=== PATIENT | female | born 1940 | race Caucasian/White ===

== ENCOUNTER 2016-10-05 15:33 | Outpatient (CLI) | payer MEDICARE, OTHER ==
[~2016-10-05 15:33] MED LIST: AMLO1TAB59 PO; CHOL400T28 PO; FLAX100031 PO; HYDR-552 PO; INSU3INS6 SQ; INSU3INS8 SQ; MULT-70 PO; SITA50TA PO
== END 2016-10-05 23:59 | disposition home or self-care (01) ==
LOC: WOU 15:33
PROVIDERS: ATTEND Podiatrist Foot & Ankle Surgery
DX: E11.621 Type 2 diabetes mellitus with foot ulcer (principal); L97.521 Non-pressure chronic ulcer of other part of left foot limited to breakdown of skin; B35.1 Tinea unguium; E11.42 Type 2 diabetes mellitus with diabetic polyneuropathy; R60.0 Localized edema; M20.12 Hallux valgus (acquired), left foot; M20.32 Hallux varus (acquired), left foot; M20.42 Other hammer toe(s) (acquired), left foot
CPT/HCPCS: 11042; 11721

== ENCOUNTER 2019-03-13 10:40 | Outpatient (CLI) | payer MEDICARE, OTHER ==
[~2019-03-13 10:40] MED LIST changes: +AMLO1TAB33 PO; -AMLO1TAB59 PO; +HYDR-4384 PO; -HYDR-552 PO; +MULT-594 PO; -MULT-70 PO
== END 2019-03-13 23:59 | disposition home health service (06) ==
LOC: WOU 10:40
PROVIDERS: ATTEND Podiatrist Foot & Ankle Surgery
DX: I87.2 Venous insufficiency (chronic) (peripheral) (principal); L97.822 Non-pressure chronic ulcer of other part of left lower leg with fat layer exposed; L97.812 Non-pressure chronic ulcer of other part of right lower leg with fat layer exposed; L97.828 Non-pressure chronic ulcer of other part of left lower leg with other specified severity; E11.622 Type 2 diabetes mellitus with other skin ulcer; B35.1 Tinea unguium; L84 Corns and callosities; R60.0 Localized edema; Z79.84 Long term (current) use of oral hypoglycemic drugs
CPT/HCPCS: 11042; 82962-TC

== ENCOUNTER 2019-03-20 10:20 | Outpatient (CLI) | payer MEDICARE, OTHER | END 2019-03-20 23:59 | disposition home health service (06) | LOC: WOU 10:20 | PROVIDERS: ATTEND Podiatrist Foot & Ankle Surgery | DX: I87.2 Venous insufficiency (chronic) (peripheral) (principal); L97.822 Non-pressure chronic ulcer of other part of left lower leg with fat layer exposed; L97.812 Non-pressure chronic ulcer of other part of right lower leg with fat layer exposed; L97.828 Non-pressure chronic ulcer of other part of left lower leg with other specified severity; E11.40 Type 2 diabetes mellitus with diabetic neuropathy, unspecified; E11.319 Type 2 diabetes mellitus with unspecified diabetic retinopathy without macular edema; Z79.84 Long term (current) use of oral hypoglycemic drugs; B35.1 Tinea unguium; L84 Corns and callosities; I11.0 Hypertensive heart disease with heart failure; I50.9 Heart failure, unspecified | CPT/HCPCS: 11042; G0463 ==

== ENCOUNTER 2019-03-28 13:14 | Outpatient (CLI) | payer MEDICARE, OTHER | END 2019-03-28 23:59 | disposition home or self-care (01) | LOC: WOU 13:14 | PROVIDERS: ATTEND Podiatrist Foot & Ankle Surgery | DX: Z09 Encounter for follow-up examination after completed treatment for conditions other than malignant neoplasm (principal); Z86.31 Personal history of diabetic foot ulcer; E11.9 Type 2 diabetes mellitus without complications; E11.40 Type 2 diabetes mellitus with diabetic neuropathy, unspecified; I87.2 Venous insufficiency (chronic) (peripheral); R60.0 Localized edema; Z79.84 Long term (current) use of oral hypoglycemic drugs; L84 Corns and callosities; M20.42 Other hammer toe(s) (acquired), left foot; M20.41 Other hammer toe(s) (acquired), right foot | CPT/HCPCS: G0463 ==

== ENCOUNTER 2019-04-24 10:35 | Outpatient (CLI) | payer MEDICARE, OTHER | END 2019-04-24 23:59 | disposition home health service (06) | LOC: WOU 10:35 | PROVIDERS: ATTEND Podiatrist Foot & Ankle Surgery | DX: L97.821 Non-pressure chronic ulcer of other part of left lower leg limited to breakdown of skin (principal); I89.0 Lymphedema, not elsewhere classified; E11.42 Type 2 diabetes mellitus with diabetic polyneuropathy; Z79.84 Long term (current) use of oral hypoglycemic drugs; M20.42 Other hammer toe(s) (acquired), left foot; M20.41 Other hammer toe(s) (acquired), right foot; L84 Corns and callosities; B35.1 Tinea unguium | CPT/HCPCS: G0463 ==

== ENCOUNTER → 2019-04-24 | Outpatient (CLI) | payer MEDICARE, OTHER | END | disposition home or self-care (01) | LOC: MSC 11:30 | PROVIDERS: ATTEND Anesthesiology | DX: G89.4 Chronic pain syndrome (principal); M54.9 Dorsalgia, unspecified; M79.606 Pain in leg, unspecified; L98.499 Non-pressure chronic ulcer of skin of other sites with unspecified severity; I11.0 Hypertensive heart disease with heart failure; I50.9 Heart failure, unspecified; E11.9 Type 2 diabetes mellitus without complications; Z79.4 Long term (current) use of insulin; C85.90 Non-Hodgkin lymphoma, unspecified, unspecified site; Z79.891 Long term (current) use of opiate analgesic ==

== ENCOUNTER 2019-05-01 10:00 | Outpatient (CLI) | payer MEDICARE, OTHER | END 2019-05-01 23:59 | disposition home health service (06) | LOC: WOU 10:00 | PROVIDERS: ATTEND Podiatrist Foot & Ankle Surgery | DX: L97.822 Non-pressure chronic ulcer of other part of left lower leg with fat layer exposed (principal); L03.90 Cellulitis, unspecified; E11.42 Type 2 diabetes mellitus with diabetic polyneuropathy; R60.0 Localized edema; Z79.4 Long term (current) use of insulin; B35.3 Tinea pedis | CPT/HCPCS: 11042 ==

== ENCOUNTER 2019-05-03 11:47 | Outpatient (CLI) | payer MEDICARE, MEDICAID ==
[2019-05-03 13:15] LABS: BASOPHILS % (AUTO) 0.1 % (0.0-2.0); EOSINOPHILS % (AUTO) 2.9 % (0.0-6.0); HEMATOCRIT 34 % (33-45); HEMOGLOBIN 11.4 g/dL (11.5-14.8); LYMPHOCYTES # (AUTO) 0.6 /CMM (0.8-4.8); LYMPHOCYTES % (AUTO) 10.6 % (20.0-44.0); MEAN CORPUSCULAR HGB CONC 34 g/dl (31.0-36.0); MEAN CORPUSCULAR VOLUME 87 fL (82-100); MONOCYTES # (AUTO) 0.3 /CMM (0.1-1.30); MONOCYTES % (AUTO) 5.7 % (2.0-12.0); NEUTROPHILS # (AUTO) 4.3 /CMM (1.8-8.9); NEUTROPHILS % (AUTO) 80.7 % (43.0-81.0); PLATELET COUNT (AUTO) 293 /CMM (150-450); RED BLOOD CELL COUNT(AUTO) 3.85 MIL/uL (4.0-5.2); WHITE BLOOD COUNT (AUTO) 5.3 K/uL (4.3-11.0)
== END 2019-05-03 23:59 | disposition home or self-care (01) ==
LOC: LAB 11:47
PROVIDERS: ATTEND Podiatrist Foot & Ankle Surgery
DX: L03.116 Cellulitis of left lower limb (principal); I10 Essential (primary) hypertension; E11.9 Type 2 diabetes mellitus without complications; I25.10 Atherosclerotic heart disease of native coronary artery without angina pectoris; M19.90 Unspecified osteoarthritis, unspecified site
CPT/HCPCS: 36415; 82962-TC; 85025-TC; 85652-TC; 86140-TC

== ENCOUNTER 2019-05-11 10:10 | Outpatient (CLI) | payer MEDICARE, MEDICAID | END 2019-05-11 23:59 | disposition home health service (06) | LOC: WOU 10:10 | PROVIDERS: ATTEND Podiatrist Foot & Ankle Surgery | DX: L97.822 Non-pressure chronic ulcer of other part of left lower leg with fat layer exposed (principal); B35.1 Tinea unguium; M20.40 Other hammer toe(s) (acquired), unspecified foot; L03.116 Cellulitis of left lower limb; I89.0 Lymphedema, not elsewhere classified; G62.9 Polyneuropathy, unspecified | CPT/HCPCS: 11042 ==

== ENCOUNTER 2019-05-15 10:15 | Outpatient (CLI) | payer MEDICARE, MEDICAID | END 2019-05-15 23:59 | disposition home or self-care (01) | LOC: WOU 10:15 | PROVIDERS: ATTEND Podiatrist Foot & Ankle Surgery | DX: L97.822 Non-pressure chronic ulcer of other part of left lower leg with fat layer exposed (principal); E11.42 Type 2 diabetes mellitus with diabetic polyneuropathy; Z79.84 Long term (current) use of oral hypoglycemic drugs; B35.1 Tinea unguium; M20.12 Hallux valgus (acquired), left foot; M20.11 Hallux valgus (acquired), right foot; M20.42 Other hammer toe(s) (acquired), left foot; M20.41 Other hammer toe(s) (acquired), right foot; Z79.899 Other long term (current) drug therapy | CPT/HCPCS: 82962-TC; G0463 ==

== ENCOUNTER → 2019-05-15 | Outpatient (CLI) | payer MEDICARE, MEDICAID | END | disposition home or self-care (01) | LOC: MSC 11:10 | PROVIDERS: ATTEND Anesthesiology | DX: G89.4 Chronic pain syndrome (principal); L98.499 Non-pressure chronic ulcer of skin of other sites with unspecified severity; I11.0 Hypertensive heart disease with heart failure; I50.9 Heart failure, unspecified; E11.9 Type 2 diabetes mellitus without complications; Z79.4 Long term (current) use of insulin; C85.90 Non-Hodgkin lymphoma, unspecified, unspecified site; Z79.899 Other long term (current) drug therapy ==

== ENCOUNTER → 2019-05-22 | Outpatient (CLI) | payer MEDICARE, MEDICAID | END | disposition home or self-care (01) | LOC: WOU 10:15 | PROVIDERS: ATTEND Podiatrist Foot & Ankle Surgery | DX: L97.828 Non-pressure chronic ulcer of other part of left lower leg with other specified severity (principal); S99.911A Unspecified injury of right ankle, initial encounter; W54.8XXA Other contact with dog, initial encounter; Y92.89 Other specified places as the place of occurrence of the external cause; E11.65 Type 2 diabetes mellitus with hyperglycemia; Z79.84 Long term (current) use of oral hypoglycemic drugs; I87.2 Venous insufficiency (chronic) (peripheral); B35.1 Tinea unguium; L84 Corns and callosities | CPT/HCPCS: 17250 ==

== ENCOUNTER → 2019-06-01 | Outpatient (CLI) | payer MEDICARE, MEDICAID | END | disposition home or self-care (01) | LOC: WOU 11:05 | PROVIDERS: ATTEND Podiatrist Foot & Ankle Surgery | DX: E11.622 Type 2 diabetes mellitus with other skin ulcer (principal); L97.312 Non-pressure chronic ulcer of right ankle with fat layer exposed; L97.812 Non-pressure chronic ulcer of other part of right lower leg with fat layer exposed; L97.512 Non-pressure chronic ulcer of other part of right foot with fat layer exposed; E11.621 Type 2 diabetes mellitus with foot ulcer; Z79.84 Long term (current) use of oral hypoglycemic drugs; I87.2 Venous insufficiency (chronic) (peripheral); S90.511A Abrasion, right ankle, initial encounter; W45.8XXA Other foreign body or object entering through skin, initial encounter; Y92.89 Other specified places as the place of occurrence of the external cause; L84 Corns and callosities | CPT/HCPCS: 11042; A6209 ==

== ENCOUNTER → 2019-06-05 | Outpatient (CLI) | payer MEDICARE, MEDICAID | END | disposition home or self-care (01) | LOC: MSC 11:30 | PROVIDERS: ATTEND Anesthesiology | DX: G89.4 Chronic pain syndrome (principal); L98.499 Non-pressure chronic ulcer of skin of other sites with unspecified severity; M79.605 Pain in left leg; I11.0 Hypertensive heart disease with heart failure; I50.9 Heart failure, unspecified; E11.9 Type 2 diabetes mellitus without complications; Z79.4 Long term (current) use of insulin; C85.90 Non-Hodgkin lymphoma, unspecified, unspecified site; Z79.891 Long term (current) use of opiate analgesic ==

== ENCOUNTER 2019-06-12 10:05 | Outpatient (CLI) | payer MEDICARE, MEDICAID | END 2019-06-12 23:59 | disposition home or self-care (01) | LOC: WOU 10:05 | PROVIDERS: ATTEND Podiatrist Foot & Ankle Surgery | DX: E11.622 Type 2 diabetes mellitus with other skin ulcer (principal); L97.312 Non-pressure chronic ulcer of right ankle with fat layer exposed; L97.812 Non-pressure chronic ulcer of other part of right lower leg with fat layer exposed; L97.818 Non-pressure chronic ulcer of other part of right lower leg with other specified severity; I87.2 Venous insufficiency (chronic) (peripheral); L03.115 Cellulitis of right lower limb; B35.1 Tinea unguium; L84 Corns and callosities; E11.42 Type 2 diabetes mellitus with diabetic polyneuropathy; Z79.84 Long term (current) use of oral hypoglycemic drugs | CPT/HCPCS: 11042 ==

== ENCOUNTER 2019-06-19 09:05 | Outpatient (CLI) | payer MEDICARE, MEDICAID | END 2019-06-19 23:59 | disposition home or self-care (01) | LOC: WOU 09:05 | PROVIDERS: ATTEND Podiatrist Foot & Ankle Surgery | DX: E11.622 Type 2 diabetes mellitus with other skin ulcer (principal); L97.318 Non-pressure chronic ulcer of right ankle with other specified severity; L97.812 Non-pressure chronic ulcer of other part of right lower leg with fat layer exposed; L97.818 Non-pressure chronic ulcer of other part of right lower leg with other specified severity; I87.2 Venous insufficiency (chronic) (peripheral); B35.1 Tinea unguium; L84 Corns and callosities; Z79.84 Long term (current) use of oral hypoglycemic drugs | CPT/HCPCS: 11042; A6253 ==

== ENCOUNTER 2019-06-26 10:10 | Outpatient (CLI) | payer MEDICARE, MEDICAID | END 2019-06-26 23:59 | disposition home health service (06) | LOC: WOU 10:10 | PROVIDERS: ATTEND Podiatrist Foot & Ankle Surgery | DX: I87.2 Venous insufficiency (chronic) (peripheral) (principal); L97.812 Non-pressure chronic ulcer of other part of right lower leg with fat layer exposed; E11.9 Type 2 diabetes mellitus without complications; Z79.84 Long term (current) use of oral hypoglycemic drugs; B35.1 Tinea unguium; L84 Corns and callosities; Z79.899 Other long term (current) drug therapy | CPT/HCPCS: 11042; A6209 ==

== ENCOUNTER 2019-06-26 12:39 | Outpatient (CLI) | payer MEDICARE, MEDICAID ==
[2019-06-26 12:51] VITALS: BP 151/66
[2019-06-26 14:11] LABS: APPEARANCE,URINE SL CLOUDY (CLEAR); BILIRUBIN,URINE NEGATIVE (NEGATIVE); BLOOD, URINE NEGATIVE Ery/uL (NEGATIVE); COLOR,URINE YELLOW (YELLOW); KETONES,URINE TRACE (NEGATIVE); LEUKOCYTE ESTERASE ,URINE TRACE (NEGATIVE); NITRITE, URINE NEGATIVE (NEGATIVE); PH,URINE 5.5 (5.0-8.0); PROTEIN,URINE 30 mg/dl (NEGATIVE); UGLUCOSE 500 MG/DL mg/dL (NEGATIVE); UROBILINOGEN,URINE 0.2 EU/dL (0.2)
[2019-06-26 14:14] LABS: BASOPHILS # (AUTO) 0.1 /CMM (0.0-0.2); BASOPHILS % (AUTO) 1.9 % (0.0-2.0); EOSINOPHILS % (AUTO) 4.4 % (0.0-6.0); HEMATOCRIT 32 % (33-45); HEMOGLOBIN 10.7 g/dL (11.5-14.8); LYMPHOCYTES # (AUTO) 0.2 /CMM (0.8-4.8); LYMPHOCYTES % (AUTO) 5.7 % (20.0-44.0); MEAN CORPUSCULAR HGB CONC 34 g/dl (31.0-36.0); MEAN CORPUSCULAR VOLUME 87 fL (82-100); MONOCYTES # (AUTO) 0.2 /CMM (0.1-1.30); MONOCYTES % (AUTO) 7.7 % (2.0-12.0); NEUTROPHILS # (AUTO) 2.3 /CMM (1.8-8.9); NEUTROPHILS % (AUTO) 80.3 % (43.0-81.0); PLATELET COUNT (AUTO) 276 /CMM (150-450); RED BLOOD CELL COUNT(AUTO) 3.61 MIL/uL (4.0-5.2); WHITE BLOOD COUNT (AUTO) 2.9 K/uL (4.3-11.0)
[2019-06-26 14:16] LABS: CARBON DIOXIDE 22 mmol/L (21-32); CHLORIDE 103 mmol/L (98-107); CREATININE 1.4 mg/dL (0.6-1.3); GLUCOSE 335 mg/dL (74-106); POTASSIUM 4.8 mmol/L (3.5-5.1); SODIUM SERUM 136 mmol/L (136-145); UREA NITROGEN, BLOOD 25 mg/dL (7-18)
[2019-06-26 14:39] LABS: RBC,URINE 0-2 /HPF (0-2)
[2019-06-26 14:40] LABS: BACTERIA,URINE 1+ /HPF (None Seen); SQUAMOUS EPITHELIAL CELL,UR Few /HPF (None Seen); WBC,URINE 51-80 /HPF (0-3)
== END 2019-06-26 23:59 | disposition home or self-care (01) ==
LOC: MSC 12:39
PROVIDERS: ATTEND Internal Medicine
DX: R53.1 Weakness (principal); R06.02 Shortness of breath; R30.0 Dysuria; K92.1 Melena; E11.65 Type 2 diabetes mellitus with hyperglycemia; Z79.4 Long term (current) use of insulin; Z79.84 Long term (current) use of oral hypoglycemic drugs; S81.809D Unspecified open wound, unspecified lower leg, subsequent encounter; M86.9 Osteomyelitis, unspecified; D64.9 Anemia, unspecified; Z79.891 Long term (current) use of opiate analgesic; Z79.899 Other long term (current) drug therapy
CPT/HCPCS: 36415; 80048; 81001; 85025; 87086; G0463; 81000-TC

== ENCOUNTER 2019-06-26 14:17 | Emergency (ER) | payer MEDICARE, OTHER ==
[~2019-06-26] VITALS: Ht 167.6 cm; Wt 85.7 kg
[2019-06-26] MEDS ORDERED: IV NS 0.9% 500 ML BAG IV ONE (14:30)
--- NOTE | 2019-06-26 14:30 | NUR ---
patient sent by PMD (Dr. Johnson) came in due to near syncope, black stool, dizziness. on room air breathing evenly and unlabored. connected to the monitor and pulse ox. kept comfortable will continue to monitor accordingly.
--- NOTE | 2019-06-26 14:49 | NUR ---
CALLED FOR MS BED & TURNED IN MOVE SHEET TO ADMITTING
[2019-06-26 15:00] LABS: ALANINE AMINOTRANSFERASE 17 U/L (12-78); ALBUMIN 3.5 g/dL (3.4-5.0); ALKALINE PHOSPHATASE 99 U/L (46-116); ASPARTATE AMINOTRANSFERASE 16 U/L (15-37); BILIRUBIN,DIRECT 0.1 mg/dL (0.0-0.2); BILIRUBIN,TOTAL 0.5 mg/dL (0.2-1.0); LIPASE 450 U/L (73-393); TOTAL PROTEIN, SERUM 7.3 g/dL (6.4-8.2)
[2019-06-26] MEDS ORDERED: INSULIN REGULAR, HUMAN 100 UNIT/ML 10 ML VIAL ONE (15:28)
[2019-06-26] MEDS ORDERED: INSULIN REGULAR, HUMAN 100 UNIT/ML 10 ML VIAL IV ONE (15:30)
[2019-06-26] MEDS ORDERED: CEFTRIAXONE 1GM BAG (ER ONLY) 1 GM/50 ML PIGGYBACK IV ONE (16:00)
[2019-06-26] MEDS ORDERED: CEFTRIAXONE 1GM BAG (ER ONLY) 50 ML IV ONE (16:11)
[2019-06-26 16:41] VITALS: BP 137/76
--- NOTE | 2019-06-26 16:41 | NUR ---
Patient discharged to home in stable condition. Written and verbal after care instructions given. Patient verbalizes understanding of instruction.IV removed. Catheter intact and site benign. Pressure and 4x4 applied to site. No bleeding noted.
== END 2019-06-26 16:41 | disposition home or self-care (01) ==
LOC: ER 14:17
DX: E11.65 Type 2 diabetes mellitus with hyperglycemia (principal); R53.1 Weakness; E78.00 Pure hypercholesterolemia, unspecified; I10 Essential (primary) hypertension; F10.10 Alcohol abuse, uncomplicated; Y90.9 Presence of alcohol in blood, level not specified; Z98.890 Other specified postprocedural states; Z88.2 Allergy status to sulfonamides; Z60.2 Problems related to living alone; Z79.4 Long term (current) use of insulin; Z79.899 Other long term (current) drug therapy
CPT/HCPCS: 36415; 80076; 82010; 82962; 83605; 83690; 84484; 85730; 86850; 93005; 96365; 96375; 99284; J0696; J1815; J7040

== ENCOUNTER 2019-07-03 10:15 | Outpatient (CLI) | payer MEDICARE, OTHER | END 2019-07-03 23:59 | disposition home health service (06) | LOC: WOU 10:15 | PROVIDERS: ATTEND Podiatrist Foot & Ankle Surgery | DX: I87.2 Venous insufficiency (chronic) (peripheral) (principal); L97.812 Non-pressure chronic ulcer of other part of right lower leg with fat layer exposed; L97.818 Non-pressure chronic ulcer of other part of right lower leg with other specified severity; L03.115 Cellulitis of right lower limb; E11.40 Type 2 diabetes mellitus with diabetic neuropathy, unspecified; E11.319 Type 2 diabetes mellitus with unspecified diabetic retinopathy without macular edema; Z79.4 Long term (current) use of insulin; B35.1 Tinea unguium; L84 Corns and callosities; Z79.899 Other long term (current) drug therapy | CPT/HCPCS: 11042; 82962; 87070; A6209 ==

== ENCOUNTER 2019-07-03 15:27 | Outpatient (CLI) | payer MEDICARE, OTHER | END 2019-07-03 23:59 | disposition home or self-care (01) | LOC: MSC 15:27 | PROVIDERS: ATTEND Internal Medicine | DX: E11.65 Type 2 diabetes mellitus with hyperglycemia (principal); E11.40 Type 2 diabetes mellitus with diabetic neuropathy, unspecified; Z79.4 Long term (current) use of insulin; I10 Essential (primary) hypertension; G89.29 Other chronic pain; L97.929 Non-pressure chronic ulcer of unspecified part of left lower leg with unspecified severity; E66.01 Morbid (severe) obesity due to excess calories; Z79.891 Long term (current) use of opiate analgesic ==

== ENCOUNTER → 2019-07-03 | Outpatient (CLI) | payer MEDICARE, OTHER, MEDICAID | END | disposition home or self-care (01) | LOC: MSC 12:10 | PROVIDERS: ATTEND Anesthesiology | DX: G89.4 Chronic pain syndrome (principal); L98.499 Non-pressure chronic ulcer of skin of other sites with unspecified severity; M79.604 Pain in right leg; M79.605 Pain in left leg; I11.0 Hypertensive heart disease with heart failure; I50.9 Heart failure, unspecified; E11.9 Type 2 diabetes mellitus without complications; Z79.4 Long term (current) use of insulin; Z85.72 Personal history of non-Hodgkin lymphomas; Z79.891 Long term (current) use of opiate analgesic; Z79.899 Other long term (current) drug therapy ==

== ENCOUNTER 2019-07-10 10:00 | Outpatient (CLI) | payer MEDICARE, OTHER | END 2019-07-10 23:59 | disposition home health service (06) | LOC: WOU 10:00 | PROVIDERS: ATTEND Podiatrist Foot & Ankle Surgery | DX: I87.2 Venous insufficiency (chronic) (peripheral) (principal); L97.818 Non-pressure chronic ulcer of other part of right lower leg with other specified severity; E11.65 Type 2 diabetes mellitus with hyperglycemia; Z79.4 Long term (current) use of insulin; L03.119 Cellulitis of unspecified part of limb; B35.1 Tinea unguium; L84 Corns and callosities; Z79.899 Other long term (current) drug therapy | CPT/HCPCS: 82962; G0463 ==

== ENCOUNTER 2019-07-20 10:35 | Outpatient (CLI) | payer MEDICARE, OTHER | END 2019-07-20 23:59 | disposition home health service (06) | LOC: WOU 10:35 | PROVIDERS: ATTEND Podiatrist Foot & Ankle Surgery | DX: E11.621 Type 2 diabetes mellitus with foot ulcer (principal); L97.522 Non-pressure chronic ulcer of other part of left foot with fat layer exposed; L97.222 Non-pressure chronic ulcer of left calf with fat layer exposed; I87.2 Venous insufficiency (chronic) (peripheral); L97.812 Non-pressure chronic ulcer of other part of right lower leg with fat layer exposed; E11.42 Type 2 diabetes mellitus with diabetic polyneuropathy; R60.0 Localized edema; L84 Corns and callosities; B35.1 Tinea unguium; M20.40 Other hammer toe(s) (acquired), unspecified foot; Z79.84 Long term (current) use of oral hypoglycemic drugs | CPT/HCPCS: 11042 ==

== ENCOUNTER 2019-07-27 10:05 | Outpatient (CLI) | payer MEDICARE, OTHER | END 2019-07-27 23:59 | disposition home health service (06) | LOC: WOU 10:05 | PROVIDERS: ATTEND Podiatrist Foot & Ankle Surgery | DX: I83.012 Varicose veins of right lower extremity with ulcer of calf (principal); I83.022 Varicose veins of left lower extremity with ulcer of calf; L97.212 Non-pressure chronic ulcer of right calf with fat layer exposed; L97.222 Non-pressure chronic ulcer of left calf with fat layer exposed; L84 Corns and callosities; B35.1 Tinea unguium; Z86.31 Personal history of diabetic foot ulcer; E11.42 Type 2 diabetes mellitus with diabetic polyneuropathy; Z79.84 Long term (current) use of oral hypoglycemic drugs | CPT/HCPCS: 11042 ==

== ENCOUNTER 2019-08-03 10:08 | Outpatient (CLI) | payer MEDICARE, OTHER | END 2019-08-03 23:59 | disposition home or self-care (01) | LOC: WOU 10:08 | PROVIDERS: ATTEND Podiatrist Foot & Ankle Surgery | DX: I83.012 Varicose veins of right lower extremity with ulcer of calf (principal); L97.222 Non-pressure chronic ulcer of left calf with fat layer exposed; I83.022 Varicose veins of left lower extremity with ulcer of calf; L97.212 Non-pressure chronic ulcer of right calf with fat layer exposed; E11.622 Type 2 diabetes mellitus with other skin ulcer; E11.42 Type 2 diabetes mellitus with diabetic polyneuropathy; I89.0 Lymphedema, not elsewhere classified | CPT/HCPCS: G0463 ==

== ENCOUNTER 2019-08-17 10:00 | Outpatient (CLI) | payer MEDICARE, OTHER | END 2019-08-17 23:59 | disposition home health service (06) | LOC: WOU 10:00 | PROVIDERS: ATTEND Podiatrist Foot & Ankle Surgery | DX: I83.012 Varicose veins of right lower extremity with ulcer of calf (principal); I83.022 Varicose veins of left lower extremity with ulcer of calf; L97.212 Non-pressure chronic ulcer of right calf with fat layer exposed; L97.222 Non-pressure chronic ulcer of left calf with fat layer exposed; E11.622 Type 2 diabetes mellitus with other skin ulcer; B35.1 Tinea unguium; L84 Corns and callosities; E11.42 Type 2 diabetes mellitus with diabetic polyneuropathy; I89.0 Lymphedema, not elsewhere classified; E11.319 Type 2 diabetes mellitus with unspecified diabetic retinopathy without macular edema; Z79.4 Long term (current) use of insulin | CPT/HCPCS: 11042 ==

== ENCOUNTER → 2019-08-21 | Outpatient (CLI) | payer MEDICARE, OTHER | END | disposition home or self-care (01) | LOC: MSC 10:45 | PROVIDERS: ATTEND Anesthesiology | DX: G89.4 Chronic pain syndrome (principal); M79.605 Pain in left leg; M79.604 Pain in right leg; L98.499 Non-pressure chronic ulcer of skin of other sites with unspecified severity; I11.0 Hypertensive heart disease with heart failure; I50.9 Heart failure, unspecified; E11.65 Type 2 diabetes mellitus with hyperglycemia; Z79.4 Long term (current) use of insulin; Z85.72 Personal history of non-Hodgkin lymphomas; Z79.891 Long term (current) use of opiate analgesic ==

== ENCOUNTER 2019-08-24 11:24 | Outpatient (CLI) | payer MEDICARE, MEDICAID | END 2019-08-24 23:59 | disposition home or self-care (01) | LOC: CARD 11:24 | PROVIDERS: ATTEND Podiatrist Foot & Ankle Surgery | DX: I70.293 Other atherosclerosis of native arteries of extremities, bilateral legs (principal); I87.2 Venous insufficiency (chronic) (peripheral) | CPT/HCPCS: 93970-TC ==

== ENCOUNTER 2019-08-28 10:05 | Outpatient (CLI) | payer MEDICARE, MEDICAID | END 2019-08-28 23:59 | disposition home health service (06) | LOC: WOU 10:05 | PROVIDERS: ATTEND Podiatrist Foot & Ankle Surgery | DX: I87.2 Venous insufficiency (chronic) (peripheral) (principal); I83.012 Varicose veins of right lower extremity with ulcer of calf; I83.022 Varicose veins of left lower extremity with ulcer of calf; L97.222 Non-pressure chronic ulcer of left calf with fat layer exposed; L97.812 Non-pressure chronic ulcer of other part of right lower leg with fat layer exposed; B35.1 Tinea unguium; L84 Corns and callosities; E11.42 Type 2 diabetes mellitus with diabetic polyneuropathy; Z79.4 Long term (current) use of insulin | CPT/HCPCS: 11042; 11045 ==

== ENCOUNTER 2019-09-11 09:45 | Outpatient (CLI) | payer MEDICARE, MEDICAID | END 2019-09-11 23:59 | disposition home health service (06) | LOC: WOU 09:45 | PROVIDERS: ATTEND Podiatrist Foot & Ankle Surgery | DX: L97.812 Non-pressure chronic ulcer of other part of right lower leg with fat layer exposed (principal); I87.2 Venous insufficiency (chronic) (peripheral); L97.822 Non-pressure chronic ulcer of other part of left lower leg with fat layer exposed; E11.9 Type 2 diabetes mellitus without complications; Z79.4 Long term (current) use of insulin; B35.1 Tinea unguium; L84 Corns and callosities | CPT/HCPCS: 11042; 11045 ==

== ENCOUNTER → 2019-09-21 | Outpatient (CLI) | payer MEDICARE, MEDICAID ==
[~2019-09-21] MED LIST changes: +ACET-907 PO; +ACET1TAB23 PO; +AMLO10TA7 PO; +ATEN25TA PO; +CEPH-570 PO; +CYCL30DR EACHEYE; +GABA-532 PO; +HYDR25TA4 PO; +INSU100V11 SQ; +MUPI22OI7 MC; +OXYB-58 PO; +POLY15DR40 EACHEYE
== END | disposition home health service (06) ==
LOC: WOU 09:55
PROVIDERS: ATTEND Podiatrist Foot & Ankle Surgery
DX: I87.313 Chronic venous hypertension (idiopathic) with ulcer of bilateral lower extremity (principal); L97.822 Non-pressure chronic ulcer of other part of left lower leg with fat layer exposed; L97.812 Non-pressure chronic ulcer of other part of right lower leg with fat layer exposed; I87.2 Venous insufficiency (chronic) (peripheral); B35.1 Tinea unguium; L84 Corns and callosities; E11.9 Type 2 diabetes mellitus without complications; Z79.4 Long term (current) use of insulin
CPT/HCPCS: 11042; 11045

== ENCOUNTER 2019-09-28 10:00 | Outpatient (CLI) | payer MEDICARE, MEDICAID ==
[~2019-09-28 10:00] MED LIST changes: -ACET-907 PO; -ACET1TAB23 PO; -AMLO10TA7 PO; -ATEN25TA PO; -CEPH-570 PO; -CYCL30DR EACHEYE; -GABA-532 PO; -HYDR25TA4 PO; -INSU100V11 SQ; -MUPI22OI7 MC; -OXYB-58 PO; -POLY15DR40 EACHEYE
== END 2019-09-28 23:59 | disposition home health service (06) ==
LOC: WOU 10:00
PROVIDERS: ATTEND Podiatrist Foot & Ankle Surgery
DX: I87.313 Chronic venous hypertension (idiopathic) with ulcer of bilateral lower extremity (principal); L97.822 Non-pressure chronic ulcer of other part of left lower leg with fat layer exposed; L97.812 Non-pressure chronic ulcer of other part of right lower leg with fat layer exposed; I87.2 Venous insufficiency (chronic) (peripheral); E11.622 Type 2 diabetes mellitus with other skin ulcer; Z79.4 Long term (current) use of insulin; B35.1 Tinea unguium; L84 Corns and callosities; Z79.899 Other long term (current) drug therapy
CPT/HCPCS: 11042; 11045

== ENCOUNTER 2019-10-05 09:55 | Outpatient (CLI) | payer MEDICARE, MEDICAID | END 2019-10-05 23:59 | disposition home health service (06) | LOC: WOU 09:55 | PROVIDERS: ATTEND Podiatrist Foot & Ankle Surgery | DX: I87.313 Chronic venous hypertension (idiopathic) with ulcer of bilateral lower extremity (principal); L97.822 Non-pressure chronic ulcer of other part of left lower leg with fat layer exposed; L97.812 Non-pressure chronic ulcer of other part of right lower leg with fat layer exposed; L84 Corns and callosities; I87.2 Venous insufficiency (chronic) (peripheral); E11.9 Type 2 diabetes mellitus without complications; Z79.4 Long term (current) use of insulin; B35.1 Tinea unguium; R60.1 Generalized edema ==

== ENCOUNTER 2019-10-12 09:35 | Outpatient (CLI) | payer MEDICARE, MEDICAID | END 2019-10-12 23:59 | disposition home health service (06) | LOC: WOU 09:35 | PROVIDERS: ATTEND Podiatrist Foot & Ankle Surgery | DX: I87.313 Chronic venous hypertension (idiopathic) with ulcer of bilateral lower extremity (principal); L97.822 Non-pressure chronic ulcer of other part of left lower leg with fat layer exposed; L97.812 Non-pressure chronic ulcer of other part of right lower leg with fat layer exposed; L03.115 Cellulitis of right lower limb; I87.2 Venous insufficiency (chronic) (peripheral); R60.1 Generalized edema; B35.1 Tinea unguium; E11.42 Type 2 diabetes mellitus with diabetic polyneuropathy; Z79.4 Long term (current) use of insulin | CPT/HCPCS: 11042; 11045; 87070-TC; 87075-TC ==

== ENCOUNTER 2019-10-16 12:52 | Outpatient (CLI) | payer MEDICARE, MEDICAID | END 2019-10-16 23:59 | disposition home health service (06) | LOC: WOU 12:52 | PROVIDERS: ATTEND Surgery Vascular Surgery | DX: I87.2 Venous insufficiency (chronic) (peripheral) (principal); L97.822 Non-pressure chronic ulcer of other part of left lower leg with fat layer exposed; L97.812 Non-pressure chronic ulcer of other part of right lower leg with fat layer exposed; E11.9 Type 2 diabetes mellitus without complications; C85.90 Non-Hodgkin lymphoma, unspecified, unspecified site | CPT/HCPCS: G0463 ==

== ENCOUNTER 2019-10-19 11:20 | Outpatient (CLI) | payer MEDICARE, MEDICAID | END 2019-10-19 23:59 | disposition home health service (06) | LOC: WOU 11:20 | PROVIDERS: ATTEND Podiatrist Foot & Ankle Surgery | DX: I87.313 Chronic venous hypertension (idiopathic) with ulcer of bilateral lower extremity (principal); L97.822 Non-pressure chronic ulcer of other part of left lower leg with fat layer exposed; L97.812 Non-pressure chronic ulcer of other part of right lower leg with fat layer exposed; I87.2 Venous insufficiency (chronic) (peripheral); E11.9 Type 2 diabetes mellitus without complications; Z79.4 Long term (current) use of insulin; L84 Corns and callosities; B35.1 Tinea unguium; R60.1 Generalized edema | CPT/HCPCS: 11042; 11045 ==

== ENCOUNTER 2019-10-26 09:30 | Outpatient (CLI) | payer MEDICARE, MEDICAID | END 2019-10-26 23:59 | disposition home health service (06) | LOC: WOU 09:30 | PROVIDERS: ATTEND Podiatrist Foot & Ankle Surgery | DX: I87.313 Chronic venous hypertension (idiopathic) with ulcer of bilateral lower extremity (principal); L97.822 Non-pressure chronic ulcer of other part of left lower leg with fat layer exposed; L97.812 Non-pressure chronic ulcer of other part of right lower leg with fat layer exposed; I87.2 Venous insufficiency (chronic) (peripheral); B35.1 Tinea unguium; L84 Corns and callosities; E11.9 Type 2 diabetes mellitus without complications; Z79.4 Long term (current) use of insulin; R60.0 Localized edema; M20.42 Other hammer toe(s) (acquired), left foot; Z79.899 Other long term (current) drug therapy | CPT/HCPCS: 11042; 11045 ==

== ENCOUNTER 2019-11-02 09:45 | Outpatient (CLI) | payer MEDICARE, MEDICAID | END 2019-11-02 23:59 | disposition home health service (06) | LOC: WOU 09:45 | PROVIDERS: ATTEND Podiatrist Foot & Ankle Surgery | DX: I87.313 Chronic venous hypertension (idiopathic) with ulcer of bilateral lower extremity (principal); L97.822 Non-pressure chronic ulcer of other part of left lower leg with fat layer exposed; L97.812 Non-pressure chronic ulcer of other part of right lower leg with fat layer exposed; L84 Corns and callosities; B35.1 Tinea unguium; E11.9 Type 2 diabetes mellitus without complications; Z79.4 Long term (current) use of insulin; I87.2 Venous insufficiency (chronic) (peripheral); R60.1 Generalized edema; M20.42 Other hammer toe(s) (acquired), left foot | CPT/HCPCS: 11042; 11045 ==

== ENCOUNTER 2019-11-09 10:50 | Outpatient (CLI) | payer MEDICARE, MEDICAID | END 2019-11-09 23:59 | disposition home health service (06) | LOC: WOU 10:50 | PROVIDERS: ATTEND Podiatrist Foot & Ankle Surgery | DX: I87.313 Chronic venous hypertension (idiopathic) with ulcer of bilateral lower extremity (principal); L97.822 Non-pressure chronic ulcer of other part of left lower leg with fat layer exposed; L97.812 Non-pressure chronic ulcer of other part of right lower leg with fat layer exposed; I87.2 Venous insufficiency (chronic) (peripheral); L84 Corns and callosities; B35.1 Tinea unguium; M20.42 Other hammer toe(s) (acquired), left foot; E11.42 Type 2 diabetes mellitus with diabetic polyneuropathy; Z79.4 Long term (current) use of insulin; R60.0 Localized edema; Z79.899 Other long term (current) drug therapy | CPT/HCPCS: 11042; 11045 ==

== ENCOUNTER 2019-11-12 09:06 | Outpatient (CLI) | payer MEDICARE, MEDICAID | END 2019-11-12 23:59 | disposition home or self-care (01) | LOC: CARD 09:06 | PROVIDERS: ATTEND Surgery Vascular Surgery | DX: I87.8 Other specified disorders of veins (principal) | CPT/HCPCS: 93970-TC ==

== ENCOUNTER 2019-11-13 14:45 | Outpatient (CLI) | payer MEDICARE, MEDICAID | END 2019-11-13 23:59 | disposition home health service (06) | LOC: VASLAB 14:45 | PROVIDERS: ATTEND Surgery Vascular Surgery | DX: I87.2 Venous insufficiency (chronic) (peripheral) (principal); L97.822 Non-pressure chronic ulcer of other part of left lower leg with fat layer exposed; L97.812 Non-pressure chronic ulcer of other part of right lower leg with fat layer exposed | CPT/HCPCS: G0463 ==

== ENCOUNTER 2019-11-30 09:59 | Outpatient (CLI) | payer MEDICARE, MEDICAID | END 2019-11-30 23:59 | disposition home health service (06) | LOC: WOU 09:59 | PROVIDERS: ATTEND Podiatrist Foot & Ankle Surgery | DX: I87.313 Chronic venous hypertension (idiopathic) with ulcer of bilateral lower extremity (principal); L97.822 Non-pressure chronic ulcer of other part of left lower leg with fat layer exposed; L97.812 Non-pressure chronic ulcer of other part of right lower leg with fat layer exposed; I87.2 Venous insufficiency (chronic) (peripheral); E11.42 Type 2 diabetes mellitus with diabetic polyneuropathy; E11.65 Type 2 diabetes mellitus with hyperglycemia; Z79.4 Long term (current) use of insulin; L03.116 Cellulitis of left lower limb; L03.115 Cellulitis of right lower limb; L84 Corns and callosities; B35.1 Tinea unguium; M20.42 Other hammer toe(s) (acquired), left foot; R60.1 Generalized edema | CPT/HCPCS: 11042; 11045 ==

== ENCOUNTER 2019-12-07 10:00 | Outpatient (CLI) | payer MEDICARE, MEDICAID | END 2019-12-07 23:59 | disposition home health service (06) | LOC: WOU 10:00 | PROVIDERS: ATTEND Podiatrist Foot & Ankle Surgery | DX: I87.313 Chronic venous hypertension (idiopathic) with ulcer of bilateral lower extremity (principal); L97.822 Non-pressure chronic ulcer of other part of left lower leg with fat layer exposed; L97.812 Non-pressure chronic ulcer of other part of right lower leg with fat layer exposed; I87.2 Venous insufficiency (chronic) (peripheral); L03.116 Cellulitis of left lower limb; L03.115 Cellulitis of right lower limb; E11.65 Type 2 diabetes mellitus with hyperglycemia; M20.42 Other hammer toe(s) (acquired), left foot; R60.1 Generalized edema; Z79.4 Long term (current) use of insulin; Z79.899 Other long term (current) drug therapy | CPT/HCPCS: 11042; 11045 ==

== ENCOUNTER 2019-12-14 09:45 | Outpatient (CLI) | payer MEDICARE, MEDICAID | END 2019-12-14 23:59 | disposition home health service (06) | LOC: WOU 09:45 | PROVIDERS: ATTEND Podiatrist Foot & Ankle Surgery | DX: I87.313 Chronic venous hypertension (idiopathic) with ulcer of bilateral lower extremity (principal); E11.621 Type 2 diabetes mellitus with foot ulcer; L97.822 Non-pressure chronic ulcer of other part of left lower leg with fat layer exposed; L97.812 Non-pressure chronic ulcer of other part of right lower leg with fat layer exposed; L97.528 Non-pressure chronic ulcer of other part of left foot with other specified severity; I87.2 Venous insufficiency (chronic) (peripheral); E11.65 Type 2 diabetes mellitus with hyperglycemia; Z79.4 Long term (current) use of insulin; L03.116 Cellulitis of left lower limb; L03.115 Cellulitis of right lower limb; B35.1 Tinea unguium; L84 Corns and callosities; M20.42 Other hammer toe(s) (acquired), left foot; R60.1 Generalized edema | CPT/HCPCS: 11042; 11045 ==

== ENCOUNTER 2019-12-21 10:20 | Outpatient (CLI) | payer MEDICARE, MEDICAID | END 2019-12-21 23:59 | disposition home health service (06) | LOC: WOU 10:20 | PROVIDERS: ATTEND Podiatrist Foot & Ankle Surgery | DX: I87.313 Chronic venous hypertension (idiopathic) with ulcer of bilateral lower extremity (principal); L97.822 Non-pressure chronic ulcer of other part of left lower leg with fat layer exposed; L97.812 Non-pressure chronic ulcer of other part of right lower leg with fat layer exposed; I87.2 Venous insufficiency (chronic) (peripheral); E11.65 Type 2 diabetes mellitus with hyperglycemia; Z79.4 Long term (current) use of insulin; L03.116 Cellulitis of left lower limb; L03.115 Cellulitis of right lower limb; R60.1 Generalized edema | CPT/HCPCS: 11042; 11045 ==

== ENCOUNTER 2019-12-28 22:51 | Inpatient (IN) | payer MEDICARE, MEDICAID ==
[~2019-12-28] VITALS: Ht 167.6 cm; Wt 69.9 kg
--- NOTE | 2019-12-28 23:00 | NUR ---
1L NS ORDERED AND INFUSING.
--- NOTE | 2019-12-28 23:00 | NUR ---
PT PRESENTED TO THE ER WITH A C/O BILATERAL LE PAIN WITH DIABETIC WOUNDS. PT'S ANKLES ARE PINK WITH SM WOUNDS NOTED. PT IS ALSO C/O FEELING TIRED AND INTERMITTENTLY DIZZY. PT IS C/O HEADACHE.
[2019-12-28] MEDS ORDERED: ACETAMINOPHEN 325 MG TABLET ONE (23:10)
[2019-12-28] MEDS ORDERED: IV NS 0.9% 1,000 ML IV ONE (23:30)
[2019-12-28] MEDS ORDERED: ACETAMINOPHEN 325 MG TABLET PO ONE (23:30)
[2019-12-28 23:39] LABS: ABG BASE EXCESS -5.8 mmol/L; ABG OXYGEN SATURATION 51.8 % (92.0-98.5); ABG PCO2 41.3 mmHg (35.0-45.0); ABG PH 7.306 (7.350-7.450); COHb 0.3 % (0.5-1.5); MetHb 0.4 % (0.0-1.5); O2Hb 51.4 % (94.0-97.0); SITE, ABG Other; VENT MODE, BG room air
--- NOTE | 2019-12-28 23:44 | NUR ---
PT LEFT FOR CT VIA RNEY
[2019-12-28 23:46] LABS: BASOPHILS % (AUTO) 0.4 % (0.0-2.0); EOSINOPHILS % (AUTO) 3.9 % (0.0-6.0); HEMATOCRIT 31 % (33-45); HEMOGLOBIN 10.4 g/dL (11.5-14.8); LYMPHOCYTES # (AUTO) 0.5 /CMM (0.8-4.8); LYMPHOCYTES % (AUTO) 7.1 % (20.0-44.0); MEAN CORPUSCULAR HGB CONC 34 g/dl (31.0-36.0); MEAN CORPUSCULAR VOLUME 89 fL (82-100); MONOCYTES # (AUTO) 0.4 /CMM (0.1-1.30); NEUTROPHILS # (AUTO) 5.5 /CMM (1.8-8.9); NEUTROPHILS % (AUTO) 82.6 % (43.0-81.0); PLATELET COUNT (AUTO) 351 /CMM (150-450); RED BLOOD CELL COUNT(AUTO) 3.48 MIL/uL (4.0-5.2); WHITE BLOOD COUNT (AUTO) 6.7 K/uL (4.3-11.0)
[2019-12-28 23:50] LABS: APPEARANCE,URINE CLEAR (CLEAR); BILIRUBIN,URINE NEGATIVE (NEGATIVE); BLOOD, URINE TRACE-INTA Ery/uL (NEGATIVE); COLOR,URINE YELLOW (YELLOW); KETONES,URINE NEGATIVE (NEGATIVE); LEUKOCYTE ESTERASE ,URINE TRACE (NEGATIVE); NITRITE, URINE NEGATIVE (NEGATIVE); PROTEIN,URINE 100 mg/dl (NEGATIVE); UGLUCOSE 100 MG/DL mg/dL (NEGATIVE); UROBILINOGEN,URINE 0.2 EU/dL (0.2)
--- NOTE | 2019-12-28 23:55 | NUR ---
PT RETURNED FROM CT.
[2019-12-29] VITALS (8 sets, daily range): BP systolic 112–169; BP diastolic 62–81
[2019-12-29 00:10] LABS: CARBON DIOXIDE 27 mmol/L (21-32); CHLORIDE 102 mmol/L (98-107); CREATININE 1.8 mg/dL (0.6-1.3); GLUCOSE 332 mg/dL (74-106); POTASSIUM 5.3 mmol/L (3.5-5.1); SODIUM SERUM 134 mmol/L (136-145); UREA NITROGEN, BLOOD 45 mg/dL (7-18)
[2019-12-29 00:12] LABS: BACTERIA,URINE Moderate /HPF (None Seen); SQUAMOUS EPITHELIAL CELL,UR Moderate /HPF (None Seen)
[2019-12-29 00:12] LABS: ALANINE AMINOTRANSFERASE 20 U/L (12-78); ALBUMIN 3.6 g/dL (3.4-5.0); ALKALINE PHOSPHATASE 76 U/L (46-116); ASPARTATE AMINOTRANSFERASE 13 U/L (15-37); BILIRUBIN,DIRECT 0.1 mg/dL (0.0-0.2); BILIRUBIN,TOTAL 0.3 mg/dL (0.2-1.0); TOTAL PROTEIN, SERUM 7.5 g/dL (6.4-8.2)
--- NOTE | 2019-12-29 00:42 | NUR ---
PT APPEARS TO BE SLEEPING COMFORTABLY WITH NO S/S OF PAIN OR DISTRESS. PT STATED THAT SHE RENTS A ROOM/HAS ACCOMODATION. PT IS ON THE MONITOR AND CONTINUOUS PULSE OX.
[2019-12-29] MEDS ORDERED: IV NS 0.9% 50 ML IV ONE (01:00)
[2019-12-29] MEDS: IV NS 0.9% 1,000 ML IV ONE ×2 (01:00→01:23)
[2019-12-29] MEDS ORDERED: IV NS 0.9% 1,000 ML IV SCH (01:00)
--- NOTE | 2019-12-29 01:05 | NUR ---
PROVIDED ADMITING WITH CLINICAL PACKET FOR INSURANCE AUTH.
--- NOTE | 2019-12-29 01:29 | NUR ---
CALLED RN SUP FOR TELE BED
[2019-12-29] MEDS ORDERED: IV NS 0.9% 1,000 ML IV PRN (01:30)
--- NOTE | 2019-12-29 01:33 | NUR ---
CALLING REPORT TO TELE NURSE.
--- NOTE | 2019-12-29 01:35 | NUR ---
CALLED DOUGHMAKER BACK RE: REPORT. STACIE COLLADO TO CALL BACK IN 5 MINS FOR REPORT.
--- NOTE | 2019-12-29 01:42 | NUR ---
PT REC'D 1L NS BOLUS AND 1L NS @500ML/HR.
[2019-12-29] MEDS: INSULIN GLARGINE, 100 UNIT/ML CARTRIDGE SQ SCH ×2 (01:48→22:51)
--- NOTE | 2019-12-29 01:53 | NUR ---
REPORT GIVEN TO RAFIA
--- NOTE | 2019-12-29 01:53 | NUR ---
CALLING COST MANAGER FOR REPORT.
[2019-12-29] MEDS ORDERED: Z GUARD REMEDY 2 OZ OINT TP PRN (02:00)
[2019-12-29] MEDS ORDERED: HYDROCODONE/APAP 5/325MG 1 EACH TABLET PO PRN (02:00)
[2019-12-29] MEDS ORDERED: CEFTRIAXONE 1 G in IV D5W 50 ML IV SCH (02:00)
[2019-12-29] MEDS ORDERED: MORPHINE SULFATE INJ 2 MG/ML DISP.SYRIN IV PRN (02:00)
[2019-12-29] MEDS ORDERED: ZOLPIDEM TARTRATE 5 MG TABLET PO PRN (02:00)
[2019-12-29] MEDS ORDERED: MAGNESIUM HYDROXIDE 30 ML UDC PO PRN (02:00)
[2019-12-29] MEDS ORDERED: MAG HYDROX/AL HYDROX/SIMETH 30 ML UDC PO PRN (02:00)
[2019-12-29] MEDS ORDERED: ONDANSETRON HCL/PF 4 MG/2 ML VIAL IVP PRN (02:00)
[2019-12-29] MEDS ORDERED: DEXTROSE 50%-WATER 50 ML DISP.SYRIN IV PRN ×2 (02:30→12:30)
[2019-12-29] MEDS ORDERED: INSULIN REGULAR, HUMAN 100 UNIT/ML 3 ML VIAL SQ PRN (02:30)
--- NOTE | 2019-12-29 03:57 | NUR ---
LINING MARKER ADMITTING NOTE: Received report from Adrienne in ED at 0200. Received patient in the unit at 0220. Patient AOx4. Patient IV 18 gauge on the left AC. It is patent, no redness or infiltration running bolus of NS 0.9%. On room air. No SOB, no signs of distress. Breathing unlabored and equal bilaterally. Orientated patient to her room and applied safety precaution. Bed in lowest position, side rails x2 are up, bed brakes are on, and call light is within reach. Educated patient on how to use the call light. Will continue to follow care of plan and monitor.
[2019-12-29] MEDS ORDERED: CEFTRIAXONE 1 G VIAL ONE (04:59)
[2019-12-29] MEDS: IV NS 0.9% 1,000 ML IV PRN ×2 (04:59→18:27)
--- NOTE | 2019-12-29 05:42 | NUR ---
FEATHER SAWYER NOTE: VTE Score 3. Ordered DVT Pumps. Will endorse chemical prophylaxis to next shift.
[2019-12-29] MEDS: BLOOD SUGAR DIAGNOSTIC 1 EACH STRIP IN SCH ×5 (06:46→22:58)
[2019-12-29] MEDS: PANTOPRAZOLE 40 MG TABLET.DR PO SCH (06:53)
--- NOTE | 2019-12-29 07:10 | NUR ---
REPAIRER SHOE STICKS CLOSING NOTE: Patient in bed, laying down, resting comfortably. On room air. No SOB, no signs of distress. Breathing unlabored and equal bilaterally.Safety precaution in place; bed in lowest position, side rails x2 are up, bed brakes are on, and call light is within reach. Will endorse to next shift.
--- NOTE | 2019-12-29 08:00 | NUR ---
ASSEMBLER WIRE GROUP OPENING NOTES Patient in bed, laying down, resting comfortably.Alert and oriented x4. On room air. No SOB, no signs of distress. Breathing unlabored and equal bilaterally.Safety precaution in place; Seen by PTGianluca who stated that pt is able to ambulate with steady gait even without FWW. Pt was also seen by SHIRLEY Bobby. Notified SHIRLEY Bobby that pt's VTE score is 3 needing anticoagulant -SHIRLEY Bobby stated that he will take care of it. Bed in lowest position, side rails x2 are up, bed brakes are on, and call light is within reach.
[2019-12-29] MEDS ORDERED: INSU100V11 SQ (08:37)
[2019-12-29] MEDS ORDERED: ATEN25TA PO (08:37)
[2019-12-29] MEDS ORDERED: GABA-532 PO (08:37)
[2019-12-29] MEDS ORDERED: CYCL30DR EACHEYE (08:37)
[2019-12-29] MEDS ORDERED: HYDR25TA4 PO (08:37)
[2019-12-29] MEDS ORDERED: ACET1TAB23 PO (08:37)
[2019-12-29] MEDS ORDERED: OXYB-58 PO (08:37)
[2019-12-29] MEDS ORDERED: POLY15DR40 EACHEYE (08:37)
[2019-12-29] MEDS ORDERED: GABAPENTIN 100 MG CAPSULE PO PRN (12:30)
[2019-12-29] MEDS ORDERED: SODIUM POLYSTYRENE SULFONATE 15 G/60 ML BOTTLE PO ONE (12:30)
[2019-12-29] MEDS ORDERED: POLYVINYL ALCOHOL 15 ML BOTTLE EACHEYE PRN (13:00)
--- NOTE | 2019-12-29 15:32 | NUR ---
PT SLEEPING COMFORTABLY AND REFUSED TO BE DISTURBED DELAYING THE ADMINISTRATION OF KAYEXALATE. SAYING SHE WILL TAKE IT LATER.
[2019-12-29] MEDS ORDERED: HYDROCHLOROTHIAZIDE 25 MG TABLET PO ONE (16:00)
[2019-12-29] MEDS ORDERED: ATENOLOL 25 MG TABLET PO ONE (16:00)
[2019-12-29] MEDS ORDERED: Medication Not On Formulary EA (Cyclosporine (Restasis) 1 DROP) EACHEYE SCH (17:00)
[2019-12-29 17:10] LABS: BASOPHILS # (AUTO) 0.1 /CMM (0.0-0.2); BASOPHILS % (AUTO) 2.1 % (0.0-2.0); EOSINOPHILS % (AUTO) 5.3 % (0.0-6.0); HEMATOCRIT 31 % (33-45); HEMOGLOBIN 10.2 g/dL (11.5-14.8); LYMPHOCYTES # (AUTO) 0.4 /CMM (0.8-4.8); LYMPHOCYTES % (AUTO) 8.7 % (20.0-44.0); MEAN CORPUSCULAR HGB CONC 33 g/dl (31.0-36.0); MEAN CORPUSCULAR VOLUME 88 fL (82-100); MONOCYTES # (AUTO) 0.3 /CMM (0.1-1.30); MONOCYTES % (AUTO) 6.8 % (2.0-12.0); NEUTROPHILS # (AUTO) 3.2 /CMM (1.8-8.9); NEUTROPHILS % (AUTO) 77.1 % (43.0-81.0); PLATELET COUNT (AUTO) 343 /CMM (150-450); RED BLOOD CELL COUNT(AUTO) 3.46 MIL/uL (4.0-5.2); WHITE BLOOD COUNT (AUTO) 4.1 K/uL (4.3-11.0)
[2019-12-29 17:35] LABS: CALCIUM, SERUM 10.5 mg/dL (8.5-10.1); CREATININE 1.2 mg/dL (0.6-1.3); POTASSIUM 4.7 mmol/L (3.5-5.1)
[2019-12-29 17:39] LABS: MAGNESIUM 1.4 mg/dL (1.8-2.4); PHOSPHORUS 3.4 mg/dL (2.5-4.9)
[2019-12-29] MEDS: INSULIN REGULAR, HUMAN 100 UNIT/ML 3 ML VIAL SQ PRN ×2 (17:54→22:52)
--- NOTE | 2019-12-29 17:55 | NUR ---
pt ambulating along the hallway with steady gait. Took her Kayexalate and finished it.
--- NOTE | 2019-12-29 19:05 | NUR ---
MS RN NOTES RECEIVED PT IN BED AWAKE AND ABLE TO MAKE NEEDS KNOWN. PT A/O X3. RESPIRATIONS EVEN AND UNLABORED WITH NO S/S OF ACUTE DISTRESS OR SOB NOTED. NO COMPLAINTS OF PAIN AT THIS TIME. PT NOTED WITH LAC #18G PATENT AND INTACT INFUSING NS @80CC/HR. SAFETY MEASURES IN PLACE WITH BED IN LOWEST LOCKED POSITION WITH SIDE RAILS UP X2. CALL LIGHT WITHIN REACH. WILL CONTINUE TO MONITOR.
[2019-12-29] MEDS: Magnesium 1GM/D5W 100ML PREMIX 100 ML IV SCH ×4 (20:45→23:59)
[2019-12-29] MEDS: HEPARIN SODIUM, PORCINE 5000 UNITS/1 ML VIAL SQ SCH (21:00)
[2019-12-29] MEDS ORDERED: INSULIN GLARGINE, 100 UNIT/ML CARTRIDGE SQ SCH (22:00)
[2019-12-30] MEDS: CEFTRIAXONE 1 G in IV D5W 50 ML IV SCH (04:46)
[2019-12-30] MEDS: ACETAMINOPHEN 325 MG TABLET PO PRN (05:05)
[2019-12-30 06:37] LABS: EOSINOPHILS % (AUTO) 7.8 % (0.0-6.0); HEMATOCRIT 29 % (33-45); LYMPHOCYTES # (AUTO) 0.3 /CMM (0.8-4.8); LYMPHOCYTES % (AUTO) 10.8 % (20.0-44.0); MEAN CORPUSCULAR HGB CONC 34 g/dl (31.0-36.0); MEAN CORPUSCULAR VOLUME 89 fL (82-100); MONOCYTES # (AUTO) 0.3 /CMM (0.1-1.30); MONOCYTES % (AUTO) 9.3 % (2.0-12.0); NEUTROPHILS # (AUTO) 2.1 /CMM (1.8-8.9); NEUTROPHILS % (AUTO) 71.1 % (43.0-81.0); PLATELET COUNT (AUTO) 323 /CMM (150-450); RED BLOOD CELL COUNT(AUTO) 3.29 MIL/uL (4.0-5.2); WHITE BLOOD COUNT (AUTO) 2.9 K/uL (4.3-11.0)
[2019-12-30 06:40] LABS: CALCIUM, SERUM 10.7 mg/dL (8.5-10.1); CREATININE 1.3 mg/dL (0.6-1.3); MAGNESIUM 2.4 mg/dL (1.8-2.4); PHOSPHORUS 3.4 mg/dL (2.5-4.9); POTASSIUM 4.4 mmol/L (3.5-5.1)
[2019-12-30] MEDS: BLOOD SUGAR DIAGNOSTIC 1 EACH STRIP IN SCH ×4 (06:41→22:10)
--- NOTE | 2019-12-30 06:56 | NUR ---
MS RN NOTES PT IN BED AWAKE AND ABLE TO MAKE NEEDS KNOWN. PT A/O X3. RESPIRATIONS EVEN AND UNLABORED WITH NO S/S OF ACUTE DISTRESS OR SOB NOTED THROUGHOUT SHIFT. NO COMPLAINTS OF PAIN AT THIS TIME. PT NOTED WITH LAC #18G PATENT AND INTACT INFUSING NS @80CC/HR. SAFETY MEASURES IN PLACE WITH BED IN LOWEST LOCKED POSITION WITH SIDE RAILS UP X2. CALL LIGHT WITHIN REACH. WILL ENDORSE TO ONCOMING NURSE FOR REAL.
--- NOTE | 2019-12-30 07:30 | NUR ---
MS RN NOTES RECEIVED PT IN BED, AWAKE, A/OX3-4/ PT TOLERATING RA WITH NO ACUTE RESPIRATORY DISTRESS NOTED. PT DENEIS ANY PAIN OR DISCOMFORT AT THIS TIME. ALSO DENIES ANY ANY CONCERNS OR QUESTIONS AT THIS TIME. PT KEPT COMFORTABLE IN BED. CALL LIGHT KEPT WITHIN REACH. PT'S BED IN LOWEST, LOCKED POSITION WITH SRX3. WILL CONTINUE PLAN OF CARE.
[2019-12-30 07:57] LABS: EOSINOPHILS % (MANUAL) 5 % (0-4); LYMPHOCYTES % (MANUAL) 9 % (16-48); MONOCYTES % (MANUAL) 10 % (0-11.0); NEUTROPHILS % (MANUAL) 76 (42-76)
[2019-12-30 08:00] VITALS: BP 152/79
[2019-12-30] MEDS ORDERED: CLONIDINE HCL 0.1 MG TABLET PO PRN (08:30)
[2019-12-30] MEDS: ATENOLOL 25 MG TABLET PO SCH (08:35)
[2019-12-30] MEDS: CHOLECALCIFEROL (VITAMIN D 3) 400 UNIT TABLET PO SCH (08:35)
[2019-12-30] MEDS: PANTOPRAZOLE 40 MG TABLET.DR PO SCH (08:35)
[2019-12-30] MEDS: OXYBUTYNIN CHLORIDE ER 5 MG TAB PO SCH (08:35)
[2019-12-30] MEDS: MULTIVITAMINS,THERAGRAN 1 UDTAB TABLET PO SCH (08:35)
[2019-12-30] MEDS: HYDROCHLOROTHIAZIDE 25 MG TABLET PO SCH (08:36)
[2019-12-30] MEDS: HEPARIN SODIUM, PORCINE 5000 UNITS/1 ML VIAL SQ SCH ×2 (08:39→20:47)
--- NOTE | 2019-12-30 10:30 | NUR ---
MS RN NOTES REPORT GIVEN TO STACIE/PROSPER FOR REAL. INFORMED PT WAS SEEN BY HOSPITALIST/DT WELL THIS MORNING, NO NEW ORDERS NOTED. JUST AWAITING FOR WOUND CARE CONSULT AND PODIATRY CONSULT FOR TOMORROW.
--- NOTE | 2019-12-30 10:34 | NUR ---
MS RN NOTE RECEIVED PATIENT FROM [facility]. REPORT RECEIVED FROM HANY QUINONES. PATIENT ARRIVED BY WHEELCHAIR AND AMBULATORY WITH ASSIST TO BED. PATIENT IN BED RESTING COMFORTABLY. PATIENT IN NO ACUTE DISTRESS. NO SOB NOTED. PATIENT BREATHING IS EVEN AND UNLABORED. PATIENT BED ALARM IS ON. SAFETY PRECAUTIONS IN PLACE. PATIENT BED IS LOCKED AND IN LOWEST POSITION. CALL LIGHT WITHIN REACH. WILL CONTINUE TO MONITOR.
[2019-12-30 10:35] VITALS: BP 142/77
[2019-12-30] MEDS: IV NS 0.9% 1,000 ML IV PRN (11:30)
[2019-12-30] MEDS: INSULIN REGULAR, HUMAN 100 UNIT/ML 3 ML VIAL SQ PRN ×2 (11:34→22:19)
[2019-12-30 16:00] VITALS: BP 164/65
--- NOTE | 2019-12-30 17:05 | NUR ---
MS RN NOTE PATIENT BLOOD SUGAR WAS 68. PATIENT REQUESTED APPLE JUICE. GAVE 8OZ APPLE JUICE. RECHECKED AFTER 15 MINS. PATIENT BLOOD SUGAR IS 77. WILL CONTINUE TO MONITOR. Addendum: 12/30/19 at 1707 by PROSPER SAUNDERS RN MS QUINONES NOTE PATIENT BLOOD SUGAR WAS 68. PATIENT REQUESTED APPLE JUICE. GAVE 8OZ APPLE JUICE. RECHECKED AFTER 15 MINS. PATIENT BLOOD SUGAR IS 77. NO INSULIN COVERAGE NEEDED PER PROTOCOL. WILL CONTINUE TO MONITOR.
--- NOTE | 2019-12-30 17:59 | NUR ---
MS RN NOTE PATIENT BLOOD SUGAR AFTER EATING DINNER IS 202.
--- NOTE | 2019-12-30 18:44 | NUR ---
MS RN CLOSING NOTES PATIENT IN BED RESTING COMFORTABLY. PATIENT IN NO ACUTE DISTRESS. NO SOB NOTED. PATIENT BREATHING IS EVEN AND UNLABORED. PATIENT RESPONSIVE TO TACTILE AND VERBAL STIMULI. PATIENT KEPT CLEAN, DRY AND COMFORTABLE THROUGHOUT SHIFT. PATIENT BED ALARM IS ON. SAFETY PRECAUTIONS IN PLACE. PATIENT BED IS LOCKED AND IN LOWEST POSITION. CALL LIGHT WITHIN REACH. WILL ENDORSE CARE TO PM SHIFT FOR REAL.
[2019-12-30 20:00] VITALS: BP 164/65
--- NOTE | 2019-12-30 20:00 | NUR ---
MS/RN NOTES' RECEIVED PATIENT IN BED, AWAKE,, ALERT X3. RESPIRATIONS EVEN AND UNLABORED, ABLE TO VERBALIZE NEEDS, AMBULATE SAFELY TO GO TO THE BATHROOM, BUT WITH SUPERVISION, REMINDED TO ASK FOR ASSISTANCE AND USE CALL LIGHTS, VERBALIZED UNDERSTANDING. WILL MONITOR. BED LOCKED, CALL LIGHTS WITHIN REACH, IV SITE ON RIGHT FOREARM PATENT. WILL MONITOR.RECEIVED ENDORSEMENT FROM AM RN FOR REAL.
--- NOTE | 2019-12-30 20:52 | NUR ---
ms/rn notes PATIENT WALKING AND DOING ACTIVITY IN ROOM KEEPING SELF BUSY WITH HER PERSONAL BELONGINGS AND REMINDED FOR SAFETY. BLOOD PRESSURE RECHECK AND WITH ABOVE SBP READING OF 160. TO MONITOR, NEEDED CLONIDINE GICEN ,TOLERATED WELL WITH FLUIDS, GHAVING SOME SNMSCKS AND FLUIDS AT THIS TIME, PATIENT ALSO GIVEN SCHEDULED HEPARIN SQ AND WITH ANOTHER RN TO VERIFY. ABLE TO TOLERATE WELL DISCUSS PURPOSE, VERBALIZED UNDERSTANDING.
[2019-12-30] MEDS: INSULIN GLARGINE, 100 UNIT/ML CARTRIDGE SQ SCH (22:18)
--- NOTE | 2019-12-30 22:29 | NUR ---
blood sugar check at 227, patient had some snacks during the start of shift, to monitor.
[2019-12-31] MEDS: ACETAMINOPHEN 325 MG TABLET PO PRN ×2 (01:47→17:30)
[2019-12-31] MEDS: IV NS 0.9% 1,000 ML IV PRN (01:49)
--- NOTE | 2019-12-31 01:52 | NUR ---
MS/RN NOTES PATIENT AWAKEN FROM SLEEP AND AWAKE ALERT X3, REPORTED HAVING HEADACHE, FLUIDS PROVIDED AND REQUESTED TO HAVE NEEDED TYLENOL PO 650 MG. TO MONITOR EFFECTIVENESS,
[2019-12-31] MEDS: CEFTRIAXONE 1 G in IV D5W 50 ML IV SCH (04:08)
[2019-12-31] MEDS: BLOOD SUGAR DIAGNOSTIC 1 EACH STRIP IN SCH ×4 (05:52→21:45)
--- NOTE | 2019-12-31 06:20 | NUR ---
201-MS/RN NOTES PATIENT ABLE TO SLEEP FEW HOURS, ALERTM ORIENTED X3, RESPITIONS EVEN AND UNLABORED, ATTENDED ALL NEEDS, SUPERVISED FOR SAFETY, BED LOCKED, CALL LIGHTS WITHIN REACH, ON IV FLUIDS AT 80 ML/HR, PATENT, WILL ENDORSE TO AM RN FOR REAL.
--- NOTE | 2019-12-31 06:28 | NUR ---
ms/rn notes patient blood sugar level at 79, provided snacks of jello and patient had some other snacks.
[2019-12-31 06:55] LABS: BASOPHILS % (AUTO) 0.4 % (0.0-2.0); HEMATOCRIT 31 % (33-45); HEMOGLOBIN 10.3 g/dL (11.5-14.8); LYMPHOCYTES # (AUTO) 0.5 /CMM (0.8-4.8); LYMPHOCYTES % (AUTO) 9.1 % (20.0-44.0); MEAN CORPUSCULAR HGB CONC 34 g/dl (31.0-36.0); MEAN CORPUSCULAR VOLUME 89 fL (82-100); MONOCYTES # (AUTO) 0.4 /CMM (0.1-1.30); MONOCYTES % (AUTO) 6.2 % (2.0-12.0); NEUTROPHILS # (AUTO) 4.7 /CMM (1.8-8.9); NEUTROPHILS % (AUTO) 79.3 % (43.0-81.0); PLATELET COUNT (AUTO) 338 /CMM (150-450); RED BLOOD CELL COUNT(AUTO) 3.45 MIL/uL (4.0-5.2); WHITE BLOOD COUNT (AUTO) 5.9 K/uL (4.3-11.0)
[2019-12-31 07:04] LABS: CALCIUM, SERUM 10.8 mg/dL (8.5-10.1); CARBON DIOXIDE 27 mmol/L (21-32); CHLORIDE 104 mmol/L (98-107); CREATININE 1.4 mg/dL (0.6-1.3); GLUCOSE 87 mg/dL (74-106); POTASSIUM 4.3 mmol/L (3.5-5.1); SODIUM SERUM 137 mmol/L (136-145); UREA NITROGEN, BLOOD 29 mg/dL (7-18)
[2019-12-31 08:00] VITALS: BP 126/69
--- NOTE | 2019-12-31 08:00 | NUR ---
MS RN OPENING NOTES Received Patient awake and resting in bed. A/O x 3. VS stable with no acute distress. Breathing even and unlabored on room air with no respiratory distress. Denies pain. No signs and symptoms of pain. 22g PIV on RFA clean, intact, patent and flushing well with NS infusing at 80ml/hr. Safety precautions in place. Bed locked and set to lowest position with side rails x 2 up. All needs rendered at this time. Call light within reach. Will continue to monitor.
--- NOTE | 2019-12-31 08:02 | NUR ---
WOUND CARE CONSULT WOUND CARE RECEIVED CONSULT FOR WOUNDS ON BILATERAL LOWER EXTREMITY, LEGS, FOOT AND TOES. DR JOHN MARIE FOLLOWS THIS PATIENT IN THE OUT PATIENT CLINIC AND HAS BEEN NOTIFIED OF THIS CONSULT. WOUND CARE WILL DEFER CONSULT AND TREATMENT PLANS TO DR LOPEZ AT THIS TIME.
[2019-12-31] MEDS: PANTOPRAZOLE 40 MG TABLET.DR PO SCH (08:49)
[2019-12-31] MEDS: OXYBUTYNIN CHLORIDE ER 5 MG TAB PO SCH (08:49)
[2019-12-31] MEDS: ATENOLOL 25 MG TABLET PO SCH (08:53)
[2019-12-31] MEDS: MULTIVITAMINS,THERAGRAN 1 UDTAB TABLET PO SCH (08:53)
[2019-12-31] MEDS: HYDROCHLOROTHIAZIDE 25 MG TABLET PO SCH (08:53)
[2019-12-31] MEDS: CHOLECALCIFEROL (VITAMIN D 3) 400 UNIT TABLET PO SCH (08:54)
[2019-12-31] MEDS: HEPARIN SODIUM, PORCINE 5000 UNITS/1 ML VIAL SQ SCH ×2 (08:56→21:32)
[2019-12-31] MEDS: INSULIN REGULAR, HUMAN 100 UNIT/ML 3 ML VIAL SQ PRN ×3 (11:41→21:48)
--- NOTE | 2019-12-31 13:39 | NUR ---
SW CONSULT: Flight Communications Specialist reviewed pt's chart and consulted with pt's RN, Leandra before conducting a mental health social worker consult to assess the pt's home situation and social support. Upon arrival to the pt's room, SW noticed she was sleeping and attempted to wake the pt. Pt was arousable and requested for SW to come back in 15-20 minutes. Endorsed to Leandra. SW will attempt the consult at a later time today.
[2019-12-31 16:00] VITALS: BP 149/83
--- NOTE | 2019-12-31 16:36 | NUR ---
MATT NOTE: Commercial Lending Vice President consulted with the pt's RN, Leandra about pt's anticipated discharge plan. Per Leandra, the pt will most likely not discharge today. SW briefly met with pt to conduct a needs assessment. Pt reported she rents a room in [place] with roommates. Pt reported she is well connected to resources in her area and has in-home help to help her with meals. Pt also reported she has transportation services she is connected to. Pt reported that upon discharge she plans to contact the transportation service to take her home. Pt reported she does not have additional social support. Pt reported she would be agreeable to home health services for wound care. SW will endorse the aforementioned information to scheduled SW tomorrow, 12/31 to follow up and ensure a safe discharge plan including transportation services.
--- NOTE | 2019-12-31 18:30 | NUR ---
MS RN CLOSING NOTES Patient resting in bed. A/O x 3. VS stable with no acute distress. Breathing even and unlabored on room air with no respiratory distress. Denies pain. No signs and symptoms of pain. 22g PIV on RFA clean, intact, patent and flushing well with NS infusing at 80ml/hr. Safety precautions in place. Bed locked and set to lowest position with side rails x 2 up. All needs rendered at this time. Call light within reach. Will endorse plan of care to oncoming shift.
--- NOTE | 2019-12-31 19:45 | NUR ---
MS RN OPENING NOTES RECEIVED PATIENT IN BED, ALERT AND ORIENTED X 3. VERBALLY RESPONSIVE AND ABLE TO FOLLOW DIRECTIONS. BREATHING REGULAR AND UNLABORED ON ROOM AIR. LEFT FOREARM G22 IV LINE INTACT AND PATENT, INFUSING WELL WITH NO BLEEDING OR S/S OF INFILTRATION NOTED. DENIES SUICIDAL IDEATION OR PAIN/DISCOMFORT AT THIS TIME. BED LOW AND LOCKED ON SEMI FOWLERS POSITION. CALL LIGHT IN REACH. WILL CONTINUE TO MONITOR.
[2019-12-31 20:00] VITALS: BP 148/63
[2019-12-31 20:10] VITALS: BP 148/63
--- NOTE | 2019-12-31 20:45 | NUR ---
MS RN NOTES SEEN AND EXAMINED BY WITH WOUND TREATMENT ORDERS NOTED.
[2019-12-31] MEDS: MUPIROCIN OINT 2% 22 GM TUBE TP SCH (21:31)
[2019-12-31] MEDS: INSULIN GLARGINE, 100 UNIT/ML CARTRIDGE SQ SCH (21:47)
--- NOTE | 2019-12-31 22:00 | NUR ---
MS RN NOTES BS 218mg/dL, 16UNITS LANTUS AND 4UNITS REGULAR INSULIN GIVEN SQ. SITE ROTATED. SNACKS PROVIDED ON BEDSIDE. WILL CONTINUE TO MONITOR.
[2020-01-01] MEDS: CEFTRIAXONE 1 G in IV D5W 50 ML IV SCH (04:30)
--- NOTE | 2020-01-01 04:50 | NUR ---
MS RN NOTES COMPLAINED OF 7/10 BLE PAIN, NORCO 5/325 GIVEN BY MOUTH. NON-PHARMACOLOGICAL INTERVENTIONS PROVIDED. VITAL SIGNS WNL. WILL CONTINUE TO MONITOR.
--- NOTE | 2020-01-01 06:30 | NUR ---
MS RN CLOSING NOTES PATIENT IN BED ALERT AND ORIENTED X 3. AFEBRILE WITH NO S/S OF DISTRESS OBSERVED. LEFT FOREARM G22 IV LINE PATENT AND INFUSING WELL. NO COMPLAINTS OF PAIN/DISCOMFORT AT THIS TIME. BED LOW AND LOCKED ON SEMI FOWLERS POSITION. CALL LIGHT IN REACH. WILL ENDORSE TO MORNING SHIFT FOR REAL.
[2020-01-01] MEDS: BLOOD SUGAR DIAGNOSTIC 1 EACH STRIP IN SCH ×2 (06:37→12:01)
[2020-01-01] MEDS: INSULIN REGULAR, HUMAN 100 UNIT/ML 3 ML VIAL SQ PRN ×2 (06:39→12:08)
[2020-01-01 07:28] LABS: EOSINOPHILS % (AUTO) 6.8 % (0.0-6.0); HEMATOCRIT 30 % (33-45); HEMOGLOBIN 10.1 g/dL (11.5-14.8); LYMPHOCYTES # (AUTO) 0.5 /CMM (0.8-4.8); LYMPHOCYTES % (AUTO) 14.1 % (20.0-44.0); MEAN CORPUSCULAR HGB CONC 34 g/dl (31.0-36.0); MEAN CORPUSCULAR VOLUME 89 fL (82-100); MONOCYTES # (AUTO) 0.2 /CMM (0.1-1.30); MONOCYTES % (AUTO) 7.3 % (2.0-12.0); NEUTROPHILS # (AUTO) 2.4 /CMM (1.8-8.9); NEUTROPHILS % (AUTO) 70.8 % (43.0-81.0); PLATELET COUNT (AUTO) 313 /CMM (150-450); RED BLOOD CELL COUNT(AUTO) 3.39 MIL/uL (4.0-5.2); WHITE BLOOD COUNT (AUTO) 3.4 K/uL (4.3-11.0)
--- NOTE | 2020-01-01 07:44 | NUR ---
MS RN OPENING NOTES RECEIVED PATIENT IN BED, AWAKE, A/O X3. PATIENT IS ON ROOM AIR; BREATHING IS EVEN AND UNLABORED; NO SOB PRESENT AT THIS MOMENT. NO COMPLAIN OF PAIN. L FOREARM IV ACCESS G # 22 IN P-LACE AND INTACT. SAFETY PRECAUTIONS IN PLACE; BED IN LOW POSITION AND LOCKED, RAILS UP X2, CALL LIGHT WITHIN REACH. WILL CONTINUE TO MONITOR PATIENT.
[2020-01-01 07:54] LABS: ALBUMIN 3.1 g/dL (3.4-5.0); BILIRUBIN,TOTAL 0.2 mg/dL (0.2-1.0); CREATININE 1.3 mg/dL (0.6-1.3); MAGNESIUM 1.8 mg/dL (1.8-2.4); PHOSPHORUS 3.4 mg/dL (2.5-4.9); POTASSIUM 4.6 mmol/L (3.5-5.1); TOTAL PROTEIN, SERUM 6.9 g/dL (6.4-8.2)
[2020-01-01 08:00] VITALS: BP 131/65
[2020-01-01] MEDS: OXYBUTYNIN CHLORIDE ER 5 MG TAB PO SCH (08:12)
[2020-01-01] MEDS: PANTOPRAZOLE 40 MG TABLET.DR PO SCH (08:15)
[2020-01-01] MEDS: HYDROCHLOROTHIAZIDE 25 MG TABLET PO SCH (08:15)
[2020-01-01] MEDS: CHOLECALCIFEROL (VITAMIN D 3) 400 UNIT TABLET PO SCH (08:16)
[2020-01-01] MEDS: MUPIROCIN OINT 2% 22 GM TUBE TP SCH (08:16)
[2020-01-01] MEDS: MULTIVITAMINS,THERAGRAN 1 UDTAB TABLET PO SCH (08:16)
[2020-01-01] MEDS: ATENOLOL 25 MG TABLET PO SCH (08:22)
[2020-01-01] MEDS: HEPARIN SODIUM, PORCINE 5000 UNITS/1 ML VIAL SQ SCH (08:23)
[2020-01-01 11:18] LABS: APPEARANCE,URINE CLEAR (CLEAR); BILIRUBIN,URINE NEGATIVE (NEGATIVE); BLOOD, URINE NEGATIVE Ery/uL (NEGATIVE); KETONES,URINE NEGATIVE (NEGATIVE); LEUKOCYTE ESTERASE ,URINE NEGATIVE (NEGATIVE); NITRITE, URINE NEGATIVE (NEGATIVE); PROTEIN,URINE NEGATIVE (NEGATIVE); UGLUCOSE NEGATIVE (NEGATIVE); UROBILINOGEN,URINE 0.2 EU/dL (0.2)
[2020-01-01 11:20] LABS: COLOR,URINE STRAW (YELLOW)
[2020-01-01 12:14] LABS: EOSINOPHIL,URINE None Seen
[2020-01-01 12:22] LABS: CREATININE, URINE 15.8 MG/DL (30.0-125.0); URINE TOTAL PROTEIN 18.3 mg/dL (0-11.9)
[2020-01-01] MEDS ORDERED: CEPH-570 PO (12:44)
[2020-01-01] MEDS ORDERED: ACET-907 PO (12:44)
[2020-01-01] MEDS ORDERED: MUPI22OI7 MC (12:44)
--- NOTE | 2020-01-01 16:51 | NUR ---
MS MOLD CONSTRUCTION SUPERVISOR NOTES PATIENT DISCHARGED HOME IN MEDICALLY STABLE CONDITION. VITAL SIGNS WNL. PATIENT SEEN BY THE PRIMARY PHYSICIAN AND VERBALIZED UNDERSTANDING OF DISCHARGE ORDERS. ALL DISCHARGE PAPERWORK READY AND SIGNED BY THE PATIENT. BELONGINGS ACCOUNTED FOR AND FORM SIGNED WELL. PHOTOS OF THE LEGS TAKEN AND FILED. MEDICATIONS PICKED UP AT THE PHARMACY BY HEAD CUSTODIAN AND GIVEN TO THE PATIENT. PATIENT LEFT THE HOSPITAL ACCOMPANIED BY THE RN AND SUSPECT ARTIST VIA WHEELCHAIR. PATIENT PICKED UP BY ARRANGED TRANSPORTATION.
== END 2020-01-01 18:22 | disposition home or self-care (01) | DRG 299 ==
LOC: ER 22:56 → TELE 12-29 01:35 → MED 12-29 17:52 → MEDSG2 12-30 10:00
PROVIDERS: ADMIT Nurse Practitioner Acute Care; ATTEND Nurse Practitioner Acute Care
DX: I87.313 Chronic venous hypertension (idiopathic) with ulcer of bilateral lower extremity (principal); N17.0 Acute kidney failure with tubular necrosis; L03.115 Cellulitis of right lower limb; N39.0 Urinary tract infection, site not specified; D68.69 Other thrombophilia; E87.1 Hypo-osmolality and hyponatremia; L97.829 Non-pressure chronic ulcer of other part of left lower leg with unspecified severity; L97.819 Non-pressure chronic ulcer of other part of right lower leg with unspecified severity; L03.116 Cellulitis of left lower limb; E11.51 Type 2 diabetes mellitus with diabetic peripheral angiopathy without gangrene; E11.65 Type 2 diabetes mellitus with hyperglycemia; E83.52 Hypercalcemia; E87.5 Hyperkalemia; E86.0 Dehydration; E86.1 Hypovolemia; I10 Essential (primary) hypertension; Z86.73 Personal history of transient ischemic attack (TIA), and cerebral infarction without residual deficits; I25.10 Atherosclerotic heart disease of native coronary artery without angina pectoris; B96.20 Unspecified Escherichia coli [E. coli] as the cause of diseases classified elsewhere; Z79.4 Long term (current) use of insulin; R32 Unspecified urinary incontinence; I87.2 Venous insufficiency (chronic) (peripheral); Z85.72 Personal history of non-Hodgkin lymphomas; Z88.2 Allergy status to sulfonamides; E11.621 Type 2 diabetes mellitus with foot ulcer
CPT/HCPCS: 36415; 36600; 70450-TC; 71045-TC; 80048-TC; 80053-TC; 80061-TC; 80076-TC; 81000-TC; 82570-TC; 82962-TC; 83735-TC; 84100-TC; 84155-TC; 84300-TC; 85025-TC; 87081-TC; 87086-TC; 87186-TC; 97116-TC; 97530-TC; 97535-TC; A4216; G0378; J0696; J1644; J1815; J3475; J7030; J7060

== ENCOUNTER 2020-01-11 10:30 | Outpatient (CLI) | payer MEDICARE, OTHER ==
[~2020-01-11 10:30] MED LIST changes: +ACET-907 PO; +ACET1TAB23 PO; -AMLO1TAB33 PO; +ATEN25TA PO; +CEPH-570 PO; +CYCL30DR EACHEYE; -FLAX100031 PO; +GABA-532 PO; -HYDR-4384 PO; +HYDR25TA4 PO; +INSU100V11 SQ; -INSU3INS8 SQ; +MUPI22OI7 MC; +OXYB-58 PO; +POLY15DR40 EACHEYE; -SITA50TA PO
== END 2020-01-11 23:59 | disposition home health service (06) ==
LOC: WOU 10:30
PROVIDERS: ATTEND Podiatrist Foot & Ankle Surgery
DX: I87.313 Chronic venous hypertension (idiopathic) with ulcer of bilateral lower extremity (principal); L97.822 Non-pressure chronic ulcer of other part of left lower leg with fat layer exposed; L97.812 Non-pressure chronic ulcer of other part of right lower leg with fat layer exposed; I87.2 Venous insufficiency (chronic) (peripheral); L03.116 Cellulitis of left lower limb; L03.115 Cellulitis of right lower limb; E11.65 Type 2 diabetes mellitus with hyperglycemia; Z79.4 Long term (current) use of insulin; L84 Corns and callosities; B35.1 Tinea unguium; M20.42 Other hammer toe(s) (acquired), left foot
CPT/HCPCS: 82962-TC; G0463

== ENCOUNTER 2020-01-22 10:00 | Outpatient (CLI) | payer MEDICARE, MEDICAID | END 2020-01-22 23:59 | disposition home health service (06) | LOC: WOU 10:00 | PROVIDERS: ATTEND Podiatrist Foot & Ankle Surgery | DX: I87.313 Chronic venous hypertension (idiopathic) with ulcer of bilateral lower extremity (principal); L97.822 Non-pressure chronic ulcer of other part of left lower leg with fat layer exposed; L97.812 Non-pressure chronic ulcer of other part of right lower leg with fat layer exposed; I87.2 Venous insufficiency (chronic) (peripheral); E11.65 Type 2 diabetes mellitus with hyperglycemia; Z79.4 Long term (current) use of insulin; L03.116 Cellulitis of left lower limb; L03.115 Cellulitis of right lower limb; M20.42 Other hammer toe(s) (acquired), left foot; R60.1 Generalized edema; L84 Corns and callosities; B35.1 Tinea unguium | CPT/HCPCS: 11042; 11045 ==

== ENCOUNTER 2020-01-25 09:50 | Outpatient (CLI) | payer MEDICARE, MEDICAID | END 2020-01-25 23:59 | disposition home health service (06) | LOC: WOU 09:50 | PROVIDERS: ATTEND Podiatrist Foot & Ankle Surgery | DX: I87.313 Chronic venous hypertension (idiopathic) with ulcer of bilateral lower extremity (principal); L97.822 Non-pressure chronic ulcer of other part of left lower leg with fat layer exposed; L97.812 Non-pressure chronic ulcer of other part of right lower leg with fat layer exposed; I87.2 Venous insufficiency (chronic) (peripheral); B35.1 Tinea unguium; L84 Corns and callosities; E11.65 Type 2 diabetes mellitus with hyperglycemia; Z79.4 Long term (current) use of insulin; M20.42 Other hammer toe(s) (acquired), left foot; R60.1 Generalized edema; Z79.899 Other long term (current) drug therapy | CPT/HCPCS: 11042; 11045 ==

== ENCOUNTER 2020-02-01 09:53 | Outpatient (CLI) | payer MEDICARE, MEDICAID | END 2020-02-01 23:59 | disposition home health service (06) | LOC: WOU 09:53 | PROVIDERS: ATTEND Podiatrist Foot & Ankle Surgery | DX: I87.313 Chronic venous hypertension (idiopathic) with ulcer of bilateral lower extremity (principal); L97.822 Non-pressure chronic ulcer of other part of left lower leg with fat layer exposed; L97.812 Non-pressure chronic ulcer of other part of right lower leg with fat layer exposed; I87.2 Venous insufficiency (chronic) (peripheral); E11.65 Type 2 diabetes mellitus with hyperglycemia; Z79.4 Long term (current) use of insulin; B35.1 Tinea unguium; L84 Corns and callosities; M20.42 Other hammer toe(s) (acquired), left foot; R60.1 Generalized edema | CPT/HCPCS: 11042; 11045; 29580-LT; 82962-TC ==

== ENCOUNTER → 2020-02-05 | Outpatient (CLI) | payer MEDICARE, MEDICAID ==
[~2020-02-05] MED LIST changes: +LIDOCAINE SOLN 4% 50 ML BOTTLE ONE
== END | disposition home health service (06) ==
LOC: WOU 10:05
PROVIDERS: ATTEND Podiatrist Foot & Ankle Surgery
DX: I87.313 Chronic venous hypertension (idiopathic) with ulcer of bilateral lower extremity (principal); L97.822 Non-pressure chronic ulcer of other part of left lower leg with fat layer exposed; L97.812 Non-pressure chronic ulcer of other part of right lower leg with fat layer exposed; E11.621 Type 2 diabetes mellitus with foot ulcer; L97.512 Non-pressure chronic ulcer of other part of right foot with fat layer exposed; S90.421A Blister (nonthermal), right great toe, initial encounter; X58.XXXA Exposure to other specified factors, initial encounter; Y92.89 Other specified places as the place of occurrence of the external cause; L84 Corns and callosities; M20.42 Other hammer toe(s) (acquired), left foot; Z79.4 Long term (current) use of insulin
CPT/HCPCS: 11042

== ENCOUNTER 2020-02-08 10:30 | Outpatient (CLI) | payer MEDICARE, MEDICAID ==
[~2020-02-08 10:30] MED LIST changes: -LIDOCAINE SOLN 4% 50 ML BOTTLE ONE
[2020-02-08] MEDS ORDERED: LIDOCAINE SOLN 4% 50 ML BOTTLE ONE (10:47)
== END 2020-02-08 23:59 | disposition home health service (06) ==
LOC: WOU 10:30
PROVIDERS: ATTEND Podiatrist Foot & Ankle Surgery
DX: I87.313 Chronic venous hypertension (idiopathic) with ulcer of bilateral lower extremity (principal); L97.828 Non-pressure chronic ulcer of other part of left lower leg with other specified severity; L97.818 Non-pressure chronic ulcer of other part of right lower leg with other specified severity; E11.621 Type 2 diabetes mellitus with foot ulcer; L97.512 Non-pressure chronic ulcer of other part of right foot with fat layer exposed; I87.2 Venous insufficiency (chronic) (peripheral); E11.65 Type 2 diabetes mellitus with hyperglycemia; Z79.4 Long term (current) use of insulin; S90.421D Blister (nonthermal), right great toe, subsequent encounter; X58.XXXD Exposure to other specified factors, subsequent encounter; B35.1 Tinea unguium; R60.1 Generalized edema; L84 Corns and callosities
CPT/HCPCS: 11042

== ENCOUNTER 2020-02-15 09:45 | Outpatient (CLI) | payer MEDICARE, MEDICAID ==
[2020-02-15] MEDS ORDERED: LIDOCAINE SOLN 4% 50 ML BOTTLE ONE (09:48)
== END 2020-02-15 23:59 | disposition home health service (06) ==
LOC: WOU 09:45
PROVIDERS: ATTEND Podiatrist Foot & Ankle Surgery
DX: I87.313 Chronic venous hypertension (idiopathic) with ulcer of bilateral lower extremity (principal); L97.822 Non-pressure chronic ulcer of other part of left lower leg with fat layer exposed; L97.818 Non-pressure chronic ulcer of other part of right lower leg with other specified severity; E11.621 Type 2 diabetes mellitus with foot ulcer; L97.522 Non-pressure chronic ulcer of other part of left foot with fat layer exposed; L97.512 Non-pressure chronic ulcer of other part of right foot with fat layer exposed; S90.421A Blister (nonthermal), right great toe, initial encounter; X58.XXXA Exposure to other specified factors, initial encounter; Y92.89 Other specified places as the place of occurrence of the external cause; I87.2 Venous insufficiency (chronic) (peripheral); R60.1 Generalized edema; M20.42 Other hammer toe(s) (acquired), left foot; B35.1 Tinea unguium; Z79.4 Long term (current) use of insulin
CPT/HCPCS: 11042; 82962-TC

== ENCOUNTER 2020-02-22 09:45 | Outpatient (CLI) | payer MEDICARE, MEDICAID | END 2020-02-22 23:59 | disposition home health service (06) | LOC: WOU 09:45 | PROVIDERS: ATTEND Podiatrist Foot & Ankle Surgery | DX: E11.621 Type 2 diabetes mellitus with foot ulcer (principal); L97.522 Non-pressure chronic ulcer of other part of left foot with fat layer exposed; L97.512 Non-pressure chronic ulcer of other part of right foot with fat layer exposed; I87.311 Chronic venous hypertension (idiopathic) with ulcer of right lower extremity; L97.812 Non-pressure chronic ulcer of other part of right lower leg with fat layer exposed; I87.2 Venous insufficiency (chronic) (peripheral); B35.1 Tinea unguium; R60.1 Generalized edema; M20.42 Other hammer toe(s) (acquired), left foot; E11.65 Type 2 diabetes mellitus with hyperglycemia; Z79.4 Long term (current) use of insulin | CPT/HCPCS: 11042; 82962-TC ==

== ENCOUNTER 2020-02-29 10:30 | Outpatient (CLI) | payer MEDICARE, MEDICAID ==
[2020-03-01] MEDS ORDERED: CLONIDINE HCL 0.1 MG TABLET ONE (03:38)
== END 2020-02-29 23:59 | disposition home health service (06) ==
LOC: WOU 10:30
PROVIDERS: ATTEND Podiatrist Foot & Ankle Surgery
DX: I87.313 Chronic venous hypertension (idiopathic) with ulcer of bilateral lower extremity (principal); L97.822 Non-pressure chronic ulcer of other part of left lower leg with fat layer exposed; L97.812 Non-pressure chronic ulcer of other part of right lower leg with fat layer exposed; S90.421A Blister (nonthermal), right great toe, initial encounter; X58.XXXA Exposure to other specified factors, initial encounter; Y92.89 Other specified places as the place of occurrence of the external cause; E11.65 Type 2 diabetes mellitus with hyperglycemia; Z79.4 Long term (current) use of insulin; M20.42 Other hammer toe(s) (acquired), left foot; M20.41 Other hammer toe(s) (acquired), right foot; L84 Corns and callosities; B35.1 Tinea unguium; R60.1 Generalized edema
CPT/HCPCS: 11042; 82962-TC

== ENCOUNTER 2020-03-01 03:15 | Emergency (ER) | payer MEDICARE, MEDICAID ==
[~2020-03-01] VITALS: Ht 167.6 cm; Wt 70.3 kg
--- NOTE | 2020-03-01 03:19 | NUR ---
PT AAOX4. BIBSELF C/O HEADACHE DUE TO NEIGHBOUR YELLING DURING MIDNIGHT. NO ACUTE DISTRESS NOTED. DENIES PAIN. BP ELEVATED UPON ASSESSMENT. MD AT BEDSIDE.
[2020-03-01] MEDS ORDERED: IBUPROFEN 400 MG TABLET ONE (03:42)
[2020-03-01] MEDS: CLONIDINE HCL 0.1 MG TABLET PO ONE (03:42)
[2020-03-01] MEDS: IBUPROFEN 400 MG TABLET PO ONE (03:48)
[2020-03-01] MEDS ORDERED: ONDANSETRON 4 MG TAB.RAPDIS ONE (04:03)
--- NOTE | 2020-03-01 04:09 | NUR ---
PT AMBULATED TO RESTROOM.
--- NOTE | 2020-03-01 05:28 | NUR ---
Patient discharged to home in stable condition. Written and verbal after care instructions given. Patient verbalizes understanding of instruction. Pt ambulated with steady gait. vss.
[2020-03-01 06:07] VITALS: BP 118/73
== END 2020-03-01 06:07 | disposition home or self-care (01) ==
LOC: ER 03:15
DX: I10 Essential (primary) hypertension (principal); R51 Headache; E11.9 Type 2 diabetes mellitus without complications; M86.9 Osteomyelitis, unspecified; E78.00 Pure hypercholesterolemia, unspecified; Z98.890 Other specified postprocedural states; Z88.2 Allergy status to sulfonamides; Z60.2 Problems related to living alone; Z79.899 Other long term (current) drug therapy; Z79.4 Long term (current) use of insulin
CPT/HCPCS: 99283; Q0162

== ENCOUNTER 2020-03-07 10:20 | Outpatient (CLI) | payer MEDICARE, OTHER ==
[2020-03-07] MEDS ORDERED: CEFTRIAXONE 1 G VIAL IM ONE (12:00)
== END 2020-03-07 23:59 | disposition home health service (06) ==
LOC: WOU 10:20
PROVIDERS: ATTEND Podiatrist Foot & Ankle Surgery
DX: S90.421A Blister (nonthermal), right great toe, initial encounter (principal); L03.031 Cellulitis of right toe; X58.XXXA Exposure to other specified factors, initial encounter; Y92.89 Other specified places as the place of occurrence of the external cause; I87.2 Venous insufficiency (chronic) (peripheral); E11.65 Type 2 diabetes mellitus with hyperglycemia; B35.1 Tinea unguium; R60.1 Generalized edema
CPT/HCPCS: 11043; 82962; 96372; A6209; J0696; A6207

== ENCOUNTER 2020-03-07 12:27 | Outpatient (CLI) | payer MEDICARE, OTHER | END 2020-03-07 23:59 | disposition home or self-care (01) | LOC: RAD 12:27 | PROVIDERS: ATTEND Podiatrist Foot & Ankle Surgery | DX: M19.071 Primary osteoarthritis, right ankle and foot (principal); M85.871 Other specified disorders of bone density and structure, right ankle and foot; M20.11 Hallux valgus (acquired), right foot; M77.31 Calcaneal spur, right foot; E11.621 Type 2 diabetes mellitus with foot ulcer; L03.115 Cellulitis of right lower limb; M79.89 Other specified soft tissue disorders | CPT/HCPCS: 73630-TC; 87070-TC; 87075-TC ==

== ENCOUNTER 2020-03-11 10:00 | Outpatient (CLI) | payer MEDICARE, OTHER | END 2020-03-11 23:59 | disposition home health service (06) | LOC: WOU 10:00 | PROVIDERS: ATTEND Podiatrist Foot & Ankle Surgery | DX: E11.621 Type 2 diabetes mellitus with foot ulcer (principal); L97.516 Non-pressure chronic ulcer of other part of right foot with bone involvement without evidence of necrosis; E11.65 Type 2 diabetes mellitus with hyperglycemia; Z79.4 Long term (current) use of insulin; I87.2 Venous insufficiency (chronic) (peripheral); R60.1 Generalized edema; B35.1 Tinea unguium; E78.5 Hyperlipidemia, unspecified; I11.0 Hypertensive heart disease with heart failure; I50.9 Heart failure, unspecified | CPT/HCPCS: 11043; 82962; A6209 ==

== ENCOUNTER 2020-03-14 10:10 | Outpatient (CLI) | payer MEDICARE, OTHER | END 2020-03-14 23:59 | disposition home health service (06) | LOC: WOU 10:10 | PROVIDERS: ATTEND Podiatrist Foot & Ankle Surgery | DX: E11.621 Type 2 diabetes mellitus with foot ulcer (principal); L97.516 Non-pressure chronic ulcer of other part of right foot with bone involvement without evidence of necrosis; I87.2 Venous insufficiency (chronic) (peripheral); B35.1 Tinea unguium; R60.1 Generalized edema; E11.65 Type 2 diabetes mellitus with hyperglycemia; M20.42 Other hammer toe(s) (acquired), left foot; Z79.4 Long term (current) use of insulin | CPT/HCPCS: 11043; A6209 ==

== ENCOUNTER 2020-03-25 13:32 | Outpatient (CLI) | payer MEDICARE, OTHER ==
[2020-03-25] MEDS ORDERED: LIDOCAINE SOLN 4% 50 ML BOTTLE ONE (13:48)
== END 2020-03-25 23:59 | disposition home health service (06) ==
LOC: WOU 13:32
PROVIDERS: ATTEND Podiatrist Foot & Ankle Surgery
DX: E11.621 Type 2 diabetes mellitus with foot ulcer (principal); L97.512 Non-pressure chronic ulcer of other part of right foot with fat layer exposed; L97.822 Non-pressure chronic ulcer of other part of left lower leg with fat layer exposed; L97.812 Non-pressure chronic ulcer of other part of right lower leg with fat layer exposed; I87.2 Venous insufficiency (chronic) (peripheral); B35.1 Tinea unguium; E11.65 Type 2 diabetes mellitus with hyperglycemia; I11.0 Hypertensive heart disease with heart failure; I50.9 Heart failure, unspecified; Z79.4 Long term (current) use of insulin
CPT/HCPCS: 11042; 29580-LT; 82962-TC; A6209

== ENCOUNTER 2020-04-04 10:25 | Outpatient (CLI) | payer MEDICARE, OTHER ==
[2020-04-04] MEDS ORDERED: AMLO10TA7 PO (14:59)
== END 2020-04-04 23:59 | disposition home health service (06) ==
LOC: WOU 10:25
PROVIDERS: ATTEND Podiatrist Foot & Ankle Surgery
DX: I87.313 Chronic venous hypertension (idiopathic) with ulcer of bilateral lower extremity (principal); L97.822 Non-pressure chronic ulcer of other part of left lower leg with fat layer exposed; L97.812 Non-pressure chronic ulcer of other part of right lower leg with fat layer exposed; E11.621 Type 2 diabetes mellitus with foot ulcer; L97.512 Non-pressure chronic ulcer of other part of right foot with fat layer exposed; E11.69 Type 2 diabetes mellitus with other specified complication; M86.8X7 Other osteomyelitis, ankle and foot; I87.2 Venous insufficiency (chronic) (peripheral); L03.031 Cellulitis of right toe; Z79.4 Long term (current) use of insulin; B35.1 Tinea unguium
CPT/HCPCS: 11042; 11045

== ENCOUNTER 2020-04-04 13:47 | Inpatient (IN) | payer MEDICARE, MEDICAID ==
[~2020-04-04] VITALS: Ht 167.6 cm; Wt 79.2 kg
--- NOTE | 2020-04-04 14:00 | NUR ---
SENT HERE BY DR LOPEZ FOR EVAL AND TREATMENT OF INFECTED RIGHT GREAT TOE. PATIENT A/OX4, BREATHING EVEN AND UNLABORED, LOWER EXTREMITIES DRESSING CLEAN DRY AND INTACT.
--- NOTE | 2020-04-04 14:55 | NUR ---
DR LOPEZ PAGED
[2020-04-04] MEDS ORDERED: AMLO10TA7 PO (14:59)
[2020-04-04] MEDS ORDERED: VANCOMYCIN 1 GM in IV D5W 250 ML IV ONE (15:00)
[2020-04-04] MEDS ORDERED: PIPERACILLIN /TAZOBACTAM 3.375 G in IV D5W 50 ML IV ONE (15:00)
--- NOTE | 2020-04-04 15:20 | NUR ---
RIGHT BIG TOE WOUND CULTURE SENT.
[2020-04-04 15:28] LABS: BASOPHILS % (AUTO) 0.4 % (0.0-2.0); EOSINOPHILS % (AUTO) 2.4 % (0.0-6.0); HEMATOCRIT 35 % (33-45); HEMOGLOBIN 11.6 g/dL (11.5-14.8); LYMPHOCYTES # (AUTO) 0.4 /CMM (0.8-4.8); LYMPHOCYTES % (AUTO) 6.2 % (20.0-44.0); MEAN CORPUSCULAR HGB CONC 34 g/dl (31.0-36.0); MEAN CORPUSCULAR VOLUME 87 fL (82-100); MONOCYTES # (AUTO) 0.4 /CMM (0.1-1.30); MONOCYTES % (AUTO) 5.7 % (2.0-12.0); NEUTROPHILS % (AUTO) 85.3 % (43.0-81.0); PLATELET COUNT (AUTO) 319 /CMM (150-450); RED BLOOD CELL COUNT(AUTO) 4.01 MIL/uL (4.0-5.2); WHITE BLOOD COUNT (AUTO) 7.1 K/uL (4.3-11.0)
--- NOTE | 2020-04-04 15:30 | NUR ---
IV LINE ESTABLISHED, BLOOD DRAWN AND SENT TO LAB. URINE SENT ALSO.
[2020-04-04 15:39] LABS: CALCIUM, SERUM 10.6 mg/dL (8.5-10.1); CARBON DIOXIDE 25 mmol/L (21-32); CHLORIDE 100 mmol/L (98-107); CREATININE 1.9 mg/dL (0.6-1.3); GLUCOSE 294 mg/dL (74-106); SODIUM SERUM 132 mmol/L (136-145); UREA NITROGEN, BLOOD 50 mg/dL (7-18)
[2020-04-04 15:40] LABS: APPEARANCE,URINE Clear (CLEAR); BILIRUBIN,URINE Negative (NEGATIVE); BLOOD, URINE Trace-intact Ery/uL (NEGATIVE); COLOR,URINE Yellow (YELLOW); KETONES,URINE Negative (NEGATIVE); LEUKOCYTE ESTERASE ,URINE Small (NEGATIVE); NITRITE, URINE Negative (NEGATIVE); PROTEIN,URINE >=300 mg/dl (NEGATIVE); UGLUCOSE 250 MG/DL mg/dL (NEGATIVE); UROBILINOGEN,URINE 0.2 EU/dL (0.2)
[2020-04-04 15:51] LABS: BACTERIA,URINE Few /HPF (None Seen); SQUAMOUS EPITHELIAL CELL,UR Few /HPF (None Seen)
--- NOTE | 2020-04-04 15:56 | NUR ---
CALLED DR. BARRIOS SERVICE. NO ANSWER, LEFT VOICEMAIL.
--- NOTE | 2020-04-04 16:18 | NUR ---
COVID SWAB SENT TO LAB.
--- NOTE | 2020-04-04 18:23 | NUR ---
covid test negative
--- NOTE | 2020-04-04 19:19 | NUR ---
BED 114-1
--- NOTE | 2020-04-04 19:46 | NUR ---
REPORT GIVEN TO STACIE AZAR FOR REAL
[2020-04-04 20:00] VITALS: BP 189/72
[2020-04-04] MEDS ORDERED: GABAPENTIN 100 MG CAPSULE PO PRN (21:00)
[2020-04-04] MEDS ORDERED: POLYVINYL ALCOHOL 15 ML BOTTLE EACHEYE PRN (21:00)
[2020-04-04] MEDS: HEPARIN SODIUM, PORCINE 5000 UNITS/1 ML VIAL SQ SCH (21:38)
[2020-04-04] MEDS: ZOSYN IVPB 3.375 G in IV D5W 50ml IV SCH (21:43)
[2020-04-04] MEDS ORDERED: HEPARIN SODIUM, PORCINE 5000 UNITS/1 ML VIAL SQ SCH (22:00)
[2020-04-04] MEDS ORDERED: DEXTROSE 50%-WATER 50 ML DISP.SYRIN IV PRN (22:00)
[2020-04-04] MEDS ORDERED: hydrALAZINE HCL 10 MG TABLET PO PRN (22:00)
[2020-04-04] MEDS ORDERED: ZOLPIDEM TARTRATE 5 MG TABLET PO PRN (22:00)
[2020-04-04] MEDS ORDERED: MAG HYDROX/AL HYDROX/SIMETH 30 ML UDC PO PRN (22:00)
[2020-04-04] MEDS: *INSULIN REGULAR(HUMULIN R)HUM 100 UNIT/ML VIAL SQ PRN (22:36)
[2020-04-04] MEDS: ATORVASTATIN 10 MG TABLET PO SCH (22:36)
[2020-04-04] MEDS: BLOOD SUGAR DIAGNOSTIC 1 EACH STRIP VI SCH (22:38)
[2020-04-04] MEDS: IV NS 0.9% 1,000 ML IV PRN (22:52)
--- NOTE | 2020-04-05 03:33 | NUR ---
RN notes Admitted a 80 year old male from ER with admitting diagnosis of non healing wound on the right toe. Alert and oriented, verbally able to communicate needs. No complaint of pain or discomfort. On room air, well tolerated. Kept clean and comfortable. Will endorse to next shift for continuity of care.
[2020-04-05 04:00] VITALS: BP 153/69
[2020-04-05] MEDS: ZOSYN IVPB 3.375 G in IV D5W 50ml IV SCH ×3 (05:23→18:37)
[2020-04-05 07:04] LABS: BASOPHILS % (AUTO) 0.4 % (0.0-2.0); EOSINOPHILS % (AUTO) 3.6 % (0.0-6.0); HEMATOCRIT 30 % (33-45); HEMOGLOBIN 10.3 g/dL (11.5-14.8); LYMPHOCYTES # (AUTO) 0.3 /CMM (0.8-4.8); LYMPHOCYTES % (AUTO) 5.1 % (20.0-44.0); MEAN CORPUSCULAR HGB CONC 34 g/dl (31.0-36.0); MEAN CORPUSCULAR VOLUME 88 fL (82-100); MONOCYTES # (AUTO) 0.4 /CMM (0.1-1.30); MONOCYTES % (AUTO) 8.2 % (2.0-12.0); NEUTROPHILS # (AUTO) 4.2 /CMM (1.8-8.9); NEUTROPHILS % (AUTO) 82.7 % (43.0-81.0); PLATELET COUNT (AUTO) 253 /CMM (150-450); WHITE BLOOD COUNT (AUTO) 5.1 K/uL (4.3-11.0)
[2020-04-05 07:12] LABS: CARBON DIOXIDE 24 mmol/L (21-32); CHLORIDE 100 mmol/L (98-107); CREATININE 1.7 mg/dL (0.6-1.3); GLUCOSE 335 mg/dL (74-106); MAGNESIUM 1.7 mg/dL (1.8-2.4); PHOSPHORUS 3.1 mg/dL (2.5-4.9); POTASSIUM 4.5 mmol/L (3.5-5.1); SODIUM SERUM 129 mmol/L (136-145)
[2020-04-05] MEDS: BLOOD SUGAR DIAGNOSTIC 1 EACH STRIP VI SCH ×4 (07:30→21:18)
[2020-04-05 07:38] LABS: CHOLESTEROL 171 mg/dL (<200); HDL CHOLESTEROL 54 mg/dL (40-60); LDL 98 mg/dL (0-99); TRIGLYCERIDES 119 mg/dL (30-150)
[2020-04-05 07:39] LABS: UREA NITROGEN, BLOOD 45 mg/dL (7-18)
[2020-04-05] MEDS: *INSULIN REGULAR(HUMULIN R)HUM 100 UNIT/ML VIAL SQ PRN ×4 (08:52→21:30)
[2020-04-05] MEDS: HEPARIN SODIUM, PORCINE 5000 UNITS/1 ML VIAL SQ SCH ×2 (08:53→21:01)
[2020-04-05] MEDS: ASPIRIN 81 MG TAB.CHEW PO SCH (08:56)
[2020-04-05] MEDS: CHOLECALCIFEROL (VITAMIN D 3) 400 UNIT TABLET PO SCH (08:56)
[2020-04-05] MEDS: OXYBUTYNIN CHLORIDE ER 5 MG TAB PO SCH (08:57)
[2020-04-05] MEDS: MULTIVITAMINS,THERAGRAN 1 UDTAB TABLET PO SCH (08:57)
[2020-04-05] MEDS: ATENOLOL 25 MG TABLET PO SCH (08:57)
[2020-04-05] MEDS: AMLODIPINE BESYLATE 10 MG TABLET PO SCH (08:58)
[2020-04-05] MEDS ORDERED: Medication Not On Formulary EA (Cyclosporine (Restasis) 1 DROP) OP SCH (09:00)
--- NOTE | 2020-04-05 09:00 | NUR ---
PATIENT WAS UPSET ABOUT HER BREAKFAST. CALLED THE KITCHEN AND REQUESTED A NEW TRAY DIET CHANGED TO CONSISTENT CARBS
[2020-04-05] MEDS: Magnesium 1GM/D5W 100ML PREMIX 100 ML IV SCH ×2 (11:10→14:39)
[2020-04-05] MEDS ORDERED: Magnesium 1GM/D5W 100ML PREMIX 100 ML IV SCH (11:30)
[2020-04-05 13:09] LABS: IRON, SERUM 53 ug/dl (50-175); TOTAL IRON BINDING CAPACITY 218 ug/dl (250-450)
[2020-04-05 13:38] LABS: FERRITIN 217 ng/mL (8-388)
--- NOTE | 2020-04-05 16:00 | NUR ---
DRESSING CHANGED ON BOTH FEET. CLEANED WITH BETADINE AND COVERED WITH GAUZE PER DR. PINK. PATIENT TOLERATED WELL.
[2020-04-05] MEDS: VANCOMYCIN 1 GM in IV D5W 250 ML IV SCH (16:23)
--- NOTE | 2020-04-05 18:00 | NUR ---
PATIENT WAS EDUCATED ON NOT PULLING ON MEDICAL EQUIPMENT AND HER IV PATIENT DISLODGED A CALL LIGHT WIRE FROM THE WALL, CHARGE NURSE WAS NOTIFIED THAT IT NEEDS TO BE FIXED PATIENT PULLED OUT IV WHILE GOING TO THE BATHROOM. NEW IV STARTED
--- NOTE | 2020-04-05 19:35 | NUR ---
MS RN NOTES RECEIVED SITTING ON EDGE OF BED,WEARING CIVILIAN CLOTHES.WITH EPISODE OF CONFUSION.FALL RISK.IV ABX INFUSING WELL LFA VIA IV PUMP,SITE PATENT.CALL LIGHT IN REACH,NEEDS ANTICIPATED.
[2020-04-05 20:00] VITALS: BP 141/65
[2020-04-05] MEDS: ATORVASTATIN 10 MG TABLET PO SCH (21:18)
--- NOTE | 2020-04-05 21:30 | NUR ---
MS RN NOTES ACCU-CHECK BLOOD SUGAR CHECK 234,COVERED WITH HUMULIN R 4 UNITS PER SLIDING SCALE.
[2020-04-05] MEDS: IV NS 0.9% 1,000 ML IV PRN (22:52)
--- NOTE | 2020-04-06 04:25 | NUR ---
MS RN NOTES CALLED [facility]ARM[facility],SPOKED TO [facility],VERIFIED ZOSYN DOSE OF 3.375GM Q6,CHANGED BY ID TO Q 8,OKAY TO USED THE OLD DOSE,ONLY FREQUENCY WAS CHANGED,NOTED AND CARRIED OUT.
[2020-04-06 04:26] VITALS: BP 153/52
--- NOTE | 2020-04-06 04:45 | NUR ---
MS RN NOTES AWAKE,AMBULATE TO THE BATHROOM,[PATIENT SHES' CONSTIPATED,NO BM X 2DAYS.OFFERED MILK OF MAGNESIA BUT REFUSED,PREFERS TO HAVE PRUNE JUICE,GIVEN.
[2020-04-06] MEDS ORDERED: PIPERACILLIN /TAZOBACTAM 3.375 G in IV D5W 50 ML IV SCH ×2 (05:00→12:00)
--- NOTE | 2020-04-06 06:10 | NUR ---
MS RN NOTES SLEPT WITH INTERVALS,IVF INFUSING WELL ON LFA,SITE PATENT.STILL NO BM WITH PRUNE JUICE,.DRESSING TO BILATERAL FOOT REMAINS DRY AND INTACT.NO COMPLAINTS OF PAIN,AMBULATORY.IN NO ACUTE DISTRESS,ALL NEEDS ATTENDED.
[2020-04-06] MEDS: ACETAMINOPHEN 325 MG TABLET PO PRN (07:17)
[2020-04-06] MEDS: BLOOD SUGAR DIAGNOSTIC 1 EACH STRIP VI SCH ×4 (07:18→22:00)
[2020-04-06] MEDS: INSULIN REGULAR, HUMAN 100 UNIT/ML 3 ML VIAL SQ PRN ×2 (07:31→12:06)
[2020-04-06 08:00] VITALS: BP 157/80
[2020-04-06] MEDS: CHOLECALCIFEROL (VITAMIN D 3) 400 UNIT TABLET PO SCH (08:18)
[2020-04-06] MEDS: MULTIVITAMINS,THERAGRAN 1 UDTAB TABLET PO SCH (08:18)
[2020-04-06] MEDS: ATENOLOL 25 MG TABLET PO SCH (08:19)
[2020-04-06] MEDS: AMLODIPINE BESYLATE 10 MG TABLET PO SCH (08:19)
[2020-04-06] MEDS: OXYBUTYNIN CHLORIDE ER 5 MG TAB PO SCH (08:19)
[2020-04-06] MEDS: ASPIRIN 81 MG TAB.CHEW PO SCH (08:19)
[2020-04-06] MEDS: IV NS 0.9% 1,000 ML IV PRN ×2 (08:35→17:46)
[2020-04-06] MEDS: HEPARIN SODIUM, PORCINE 5000 UNITS/1 ML VIAL SQ SCH ×2 (08:43→21:00)
[2020-04-06 08:50] LABS: BASOPHILS % (AUTO) 0.7 % (0.0-2.0); EOSINOPHILS % (AUTO) 6.2 % (0.0-6.0); HEMATOCRIT 35 % (33-45); HEMOGLOBIN 11.8 g/dL (11.5-14.8); LYMPHOCYTES # (AUTO) 0.4 /CMM (0.8-4.8); LYMPHOCYTES % (AUTO) 6.8 % (20.0-44.0); MEAN CORPUSCULAR HGB CONC 34 g/dl (31.0-36.0); MEAN CORPUSCULAR VOLUME 85 fL (82-100); MONOCYTES # (AUTO) 0.3 /CMM (0.1-1.30); MONOCYTES % (AUTO) 5.7 % (2.0-12.0); NEUTROPHILS # (AUTO) 4.8 /CMM (1.8-8.9); NEUTROPHILS % (AUTO) 80.6 % (43.0-81.0); PLATELET COUNT (AUTO) 291 /CMM (150-450); RED BLOOD CELL COUNT(AUTO) 4.07 MIL/uL (4.0-5.2)
[2020-04-06 09:43] LABS: ALANINE AMINOTRANSFERASE 20 U/L (12-78); ALBUMIN 3.2 g/dL (3.4-5.0); ALKALINE PHOSPHATASE 86 U/L (46-116); ASPARTATE AMINOTRANSFERASE 14 U/L (15-37); BILIRUBIN,TOTAL 0.4 mg/dL (0.2-1.0); CARBON DIOXIDE 24 mmol/L (21-32); CHLORIDE 104 mmol/L (98-107); CREATININE 1.6 mg/dL (0.6-1.3); GLUCOSE 275 mg/dL (74-106); MAGNESIUM 1.8 mg/dL (1.8-2.4); PHOSPHORUS 2.4 mg/dL (2.5-4.9); POTASSIUM 4.8 mmol/L (3.5-5.1); SODIUM SERUM 135 mmol/L (136-145); TOTAL PROTEIN, SERUM 7.7 g/dL (6.4-8.2); UREA NITROGEN, BLOOD 36 mg/dL (7-18)
[2020-04-06] MEDS: PIPERACILLIN /TAZOBACTAM 2.25 G in IV D5W 50 ML IV SCH ×2 (12:04→17:46)
[2020-04-06] MEDS: hydrALAZINE HCL 50 MG TABLET PO SCH ×3 (12:04→16:36)
[2020-04-06] MEDS ORDERED: K PHOS NEUTRAL 250 MG TABLET PO ONE (13:00)
[2020-04-06 16:00] VITALS: BP 141/64
[2020-04-06] MEDS: VANCOMYCIN 1 GM in IV D5W 250 ML IV SCH (16:25)
[2020-04-06] MEDS: *INSULIN REGULAR(HUMULIN R)HUM 100 UNIT/ML VIAL SQ PRN ×2 (16:39→21:13)
--- NOTE | 2020-04-06 19:15 | NUR ---
MS RN OPENING NOTES: RECEIVED PATIENT IN BED,AWAKE, A/O X4. NO S/S OF DISTRESS NOTED. NO COMPLAIN OF PAIN. CALL LIGHT WITHIN REACH. BED IN LOWEST AND LOCKED POSITION. NPO POST MN, PATIENT IS AWARE, VERBALIZED UNDERSTANDING, WOOD BOAT BUILDER SUPERVISOR AWARE. CONSENTS FOR ABDOMINAL ANGIOGRAM AND RIGHT FOOT EXCISIONAL DEBRIDEMENT ALREADY SIGNED BY THE PATIENT AND ATTACHED TO THE CHART.
[2020-04-06 19:42] VITALS: BP 135/60
[2020-04-06] MEDS: ATORVASTATIN 10 MG TABLET PO SCH (21:03)
[2020-04-06] MEDS ORDERED: MISCELLANEOUS MED 1 EA EA XX ONE (23:00)
[2020-04-07] VITALS (13 sets, daily range): BP systolic 105–179; BP diastolic 42–80
--- NOTE | 2020-04-07 | NUR ---
PATIENT IS NPO NOW, PATIENT REMINDED.SCOOPING MACHINE TENDER AWARE.
[2020-04-07] MEDS: PIPERACILLIN /TAZOBACTAM 2.25 G in IV D5W 50 ML IV SCH ×4 (00:11→17:09)
[2020-04-07] MEDS: ONDANSETRON HCL/PF 4 MG/2 ML VIAL IVP PRN ×2 (00:17→21:35)
--- NOTE | 2020-04-07 00:21 | NUR ---
PATIENT STATED THAT SHE VOMITTED, SCANTY AMOUNT ONLY, ZOFRAN 4MG IV GIVEN.
[2020-04-07 06:45] LABS: BASOPHILS % (AUTO) 0.8 % (0.0-2.0); EOSINOPHILS % (AUTO) 6.4 % (0.0-6.0); HEMATOCRIT 31 % (33-45); HEMOGLOBIN 10.9 g/dL (11.5-14.8); LYMPHOCYTES # (AUTO) 0.5 /CMM (0.8-4.8); LYMPHOCYTES % (AUTO) 9.4 % (20.0-44.0); MEAN CORPUSCULAR HGB CONC 35 g/dl (31.0-36.0); MEAN CORPUSCULAR VOLUME 88 fL (82-100); MONOCYTES # (AUTO) 0.4 /CMM (0.1-1.30); MONOCYTES % (AUTO) 7.2 % (2.0-12.0); NEUTROPHILS # (AUTO) 3.8 /CMM (1.8-8.9); NEUTROPHILS % (AUTO) 76.2 % (43.0-81.0); PLATELET COUNT (AUTO) 280 /CMM (150-450); RED BLOOD CELL COUNT(AUTO) 3.58 MIL/uL (4.0-5.2)
--- NOTE | 2020-04-07 07:04 | NUR ---
PATIENT REQUESTED TO CHECK THE BLOOD SUGAR BUO=322, NO INSULIN GIVEN, PATIENT IS NPO, WILL ENDORSE TO THE NEXT SHIFT RN.
[2020-04-07] MEDS: BLOOD SUGAR DIAGNOSTIC 1 EACH STRIP VI SCH ×4 (07:10→21:55)
--- NOTE | 2020-04-07 07:11 | NUR ---
MS RN CLOSING NOTES: PATIENT IN BED RESTING, AWAKE, A/O X4. NO S/S OF DISTRESS NOTED. NO COMPLAIN OF PAIN. CALL LIGHT WITHIN REACH. BED ALARM ON. BED IN LOWEST AND LOCKED POSITION. NPO. BLOOD SUGAR THIS MORNING IS 249, NO INSULIN GIVEN PER CHARGE NURSE. RECEIVED A CALL FROM MIGUELINA LAST NIGHT, INFORMED HIM ABOUT THE CONSENT THAT THE PATIENT SIGNED, THE PROCEDURE WRITTEN ON THE CONSENT WAS ABDOMINAL ANGIOGRAM, AND HE SAID IT SHOULD BE PERIPHERAL, HE SAID THAT IT'S OK, THEY WILL FIX IT LATER TODAY BEFORE THE PROCEDURE, CHARGE NURSE AWARE. BOTH PEDAL PULSES ARE MARKED. WILL ENDORSE TO THE NEXT SHIFT RN RE: ANGIOGRAM CONSENT.
[2020-04-07 07:20] LABS: ALANINE AMINOTRANSFERASE 16 U/L (12-78); ALBUMIN 2.9 g/dL (3.4-5.0); ALKALINE PHOSPHATASE 74 U/L (46-116); ASPARTATE AMINOTRANSFERASE 14 U/L (15-37); BILIRUBIN,TOTAL 0.3 mg/dL (0.2-1.0); CALCIUM, SERUM 9.4 mg/dL (8.5-10.1); CARBON DIOXIDE 21 mmol/L (21-32); CHLORIDE 106 mmol/L (98-107); CREATININE 1.6 mg/dL (0.6-1.3); GLUCOSE 253 mg/dL (74-106); MAGNESIUM 1.8 mg/dL (1.8-2.4); PHOSPHORUS 2.8 mg/dL (2.5-4.9); POTASSIUM 4.5 mmol/L (3.5-5.1); SODIUM SERUM 136 mmol/L (136-145); TOTAL PROTEIN, SERUM 7.1 g/dL (6.4-8.2); UREA NITROGEN, BLOOD 32 mg/dL (7-18)
--- NOTE | 2020-04-07 08:00 | NUR ---
MS RN OPENING NOTES Received Patient sitting in bed. A/O x 4. VS stable with no acute distress. Breathing even and unlabored on room air with no respiratory distress. Denies pain. No signs and symptoms of pain. 22g PIV on LFA intact, patent and flushing well. Safety precautions in place. Bed locked and set to lowest position with side rails x 2 up. All needs rendered at this time. Call light within reach. Will continue to monitor.
--- NOTE | 2020-04-07 08:30 | NUR ---
WOUND CARE CONSULT: PT PRESENTS WITH BRUISING/DISCOLORATION TO LEFT WAIST AREA, PRESENT ON ADMISSION. PT STATES BUMPED HERSELF AT HOME. PT IS AMBULATORY AND CONTINENT. PT FOLLOWED BY PODIATRY AND VASCULAR SURGEON FOR LOWER EXTREMITIES. CURRENT LUCHO SCORE IS 21. WILL SEE PRN. Addendum: 04/07/20 at 0831 by FABRICIO CUEVAS WNDNU Amended: Links added.
[2020-04-07] MEDS: AMLODIPINE BESYLATE 10 MG TABLET PO SCH (09:00)
[2020-04-07] MEDS: CHOLECALCIFEROL (VITAMIN D 3) 400 UNIT TABLET PO SCH (09:00)
[2020-04-07] MEDS: MULTIVITAMINS,THERAGRAN 1 UDTAB TABLET PO SCH (09:00)
[2020-04-07] MEDS: ASPIRIN 81 MG TAB.CHEW PO SCH (09:00)
[2020-04-07] MEDS: hydrALAZINE HCL 50 MG TABLET PO SCH ×3 (09:00→17:13)
[2020-04-07] MEDS: OXYBUTYNIN CHLORIDE ER 5 MG TAB PO SCH (09:00)
[2020-04-07] MEDS: ATENOLOL 25 MG TABLET PO SCH (09:00)
[2020-04-07] MEDS: HEPARIN SODIUM, PORCINE 5000 UNITS/1 ML VIAL SQ SCH ×2 (09:00→21:36)
[2020-04-07] MEDS ORDERED: IV NS 0.9% 1,000 ML ONE (09:17)
[2020-04-07] MEDS ORDERED: MIDAZOLAM HCL 2 MG/2ML VIAL ONE ×3 (09:46→12:32)
[2020-04-07] MEDS ORDERED: FENTANYL PF 100MCG/2ML AMPUL ONE ×2 (09:47→11:17)
[2020-04-07] MEDS ORDERED: VANCOMYCIN 0.75 GM in IV D5W 250 ML IV SCH (10:00)
[2020-04-07] MEDS ORDERED: IODIXANOL 150 ML IV ONE ×3 (10:29→12:24)
[2020-04-07] MEDS ORDERED: LIDOCAINE HCL/PF 1% 30 ML SDV ONE (10:35)
[2020-04-07] MEDS ORDERED: VANCOMYCIN 1 GM in IV D5W 250 ML IV SCH (11:00)
[2020-04-07] MEDS ORDERED: NICARDIPINE IN DEXTROSE,ISO-OS 200 ML IV ONE (11:26)
[2020-04-07] MEDS ORDERED: DILTIAZEM HCL 25 MG IV ONE (11:27)
[2020-04-07] MEDS ORDERED: diphenhydrAMINE HCL 50 MG/ML VIAL ONE (12:15)
[2020-04-07] MEDS ORDERED: HEPARIN SODIUM, PORCINE 1,000 UNIT/ML VIAL ONE ×4 (12:16→12:40)
[2020-04-07] MEDS ORDERED: HEPARIN SODIUM, PORCINE 5000 UNITS/1 ML VIAL ONE (12:16)
[2020-04-07] MEDS ORDERED: CLOPIDOGREL BISULFATE 300 MG TABLET ONE (12:26)
[2020-04-07] MEDS ORDERED: NITROGLYCERIN ICAR 1,000 MCG/10 ML VIAL ICAR ONE (12:31)
--- NOTE | 2020-04-07 13:50 | NUR ---
PATIENT TRANSFERRED FROM PAPER AND PULP MILL WORKER S/P LEFT HEART CATH WITHOUT INTERVENTION AND LEFT FEMORAL ANGIOGRAM WITH RIGHT SFA CONTRACT PROGRAMMER AND STENT, RIGHT PERONEAL ARTERY CONTRACT PROGRAMMER. LEFT GROIN PROCEDURE SITE WITH TRANSPARENT DRESSING INPLACE WITHOUT SIGNS OF BLEEDING. POST OP ORDERS CARRIED OUT.
--- NOTE | 2020-04-07 14:30 | NUR ---
PATIENT AWAKE, ALERT BUT VERY NON COMPLIANT. TAKING OUT MONITORS TO PUT REGULAR CLOTHES ON-.BENDING LEGS AND SITTING UP. EXPLAINED MD ORDERS NOT TO SIT UP FOR 2 HRS POST PROCEDURE.
--- NOTE | 2020-04-07 14:45 | NUR ---
LATE LUNCH GIVEN. INDEPENDENT WITH MEALS .
[2020-04-07] MEDS: INSULIN REGULAR, HUMAN 100 UNIT/ML 3 ML VIAL SQ PRN (17:39)
--- NOTE | 2020-04-07 18:30 | NUR ---
LEFT FEMORAL PROCEDURE SITE REMAINS WITHOUT SIGNS OF BLEEDING. SR 60'S -NO C/O CHEST PAIN/PALPITATION. SBP>130'S. RA SPO2 96%.
[2020-04-07] MEDS: ACETAMINOPHEN 325 MG TABLET PO PRN (19:35)
[2020-04-07] MEDS: IV NS 0.9% 1,000 ML IV PRN (20:30)
[2020-04-07] MEDS: LINEZOLID 600 MG TABLET PO SCH (21:34)
[2020-04-07] MEDS: ATORVASTATIN 10 MG TABLET PO SCH (21:35)
[2020-04-07] MEDS: *INSULIN REGULAR(HUMULIN R)HUM 100 UNIT/ML VIAL SQ PRN (21:53)
[2020-04-08] VITALS (23 sets, daily range): BP systolic 92–168; BP diastolic 28–84
[2020-04-08 04:03] LABS: BASOPHILS # (AUTO) 0.1 /CMM (0.0-0.2); BASOPHILS % (AUTO) 0.6 % (0.0-2.0); EOSINOPHILS % (AUTO) 3.2 % (0.0-6.0); HEMATOCRIT 34 % (33-45); HEMOGLOBIN 11.8 g/dL (11.5-14.8); LYMPHOCYTES # (AUTO) 0.6 /CMM (0.8-4.8); LYMPHOCYTES % (AUTO) 7.7 % (20.0-44.0); MEAN CORPUSCULAR HGB CONC 35 g/dl (31.0-36.0); MEAN CORPUSCULAR VOLUME 87 fL (82-100); MONOCYTES # (AUTO) 0.6 /CMM (0.1-1.30); MONOCYTES % (AUTO) 7.2 % (2.0-12.0); NEUTROPHILS # (AUTO) 6.7 /CMM (1.8-8.9); NEUTROPHILS % (AUTO) 81.3 % (43.0-81.0); PLATELET COUNT (AUTO) 303 /CMM (150-450); RED BLOOD CELL COUNT(AUTO) 3.88 MIL/uL (4.0-5.2); WHITE BLOOD COUNT (AUTO) 8.2 K/uL (4.3-11.0)
[2020-04-08 04:15] LABS: CALCIUM, SERUM 9.8 mg/dL (8.5-10.1); CARBON DIOXIDE 21 mmol/L (21-32); CHLORIDE 106 mmol/L (98-107); CREATININE 1.5 mg/dL (0.6-1.3); GLUCOSE 156 mg/dL (74-106); MAGNESIUM 1.7 mg/dL (1.8-2.4); POTASSIUM 4.3 mmol/L (3.5-5.1); SODIUM SERUM 139 mmol/L (136-145); UREA NITROGEN, BLOOD 27 mg/dL (7-18)
--- NOTE | 2020-04-08 06:16 | NUR ---
Patient remains in no acute distress in bed. patient did not have any significant change in condition during shift. left femoral site is clean dry and intact with no signs of bleeding. All needs met, all orders carried out. will endorse care to am RN for continuity of care.
--- NOTE | 2020-04-08 07:15 | NUR ---
FORKLIFT WHEEL LOADER NOTES RECEIVED PATIENT AOX4 , DENIES AND SOB AND DISCOMFORT AT THIS TIME , SPO2 OF 100% VIA RA , SR WITH 1ST DEGREE AV BLOCK WITH BBB 85 ON BEDSIDE MONITOR , IV OF R ARM # 20 WITH NS @ 75ML/HR INFUSING WELL , LFA # 22 PATENT AND INTACT SL , ALL NEEDS ATTENDED ,WILL CONTINUE TO MONITOR .
[2020-04-08] MEDS: BLOOD SUGAR DIAGNOSTIC 1 EACH STRIP VI SCH ×4 (07:18→21:16)
[2020-04-08] MEDS: OXYBUTYNIN CHLORIDE ER 5 MG TAB PO SCH (08:37)
[2020-04-08] MEDS: ASPIRIN 81 MG TAB.CHEW PO SCH (08:37)
[2020-04-08] MEDS: hydrALAZINE HCL 50 MG TABLET PO SCH ×3 (08:37→17:21)
[2020-04-08] MEDS: AMLODIPINE BESYLATE 10 MG TABLET PO SCH (08:37)
[2020-04-08] MEDS: CHOLECALCIFEROL (VITAMIN D 3) 400 UNIT TABLET PO SCH (08:38)
[2020-04-08] MEDS: MULTIVITAMINS,THERAGRAN 1 UDTAB TABLET PO SCH (08:38)
[2020-04-08] MEDS: CLOPIDOGREL BISULFATE 75 MG TABLET PO SCH (08:38)
[2020-04-08] MEDS: LINEZOLID 600 MG TABLET PO SCH ×2 (08:38→21:17)
[2020-04-08] MEDS: HEPARIN SODIUM, PORCINE 5000 UNITS/1 ML VIAL SQ SCH ×2 (08:38→21:21)
[2020-04-08] MEDS: ATENOLOL 25 MG TABLET PO SCH (08:38)
--- NOTE | 2020-04-08 09:29 | NUR ---
ACCESS NURSE NOTES PO MEDS AND INSULIN COVERED HELD , PT NPO FOR SURGERY TODAY
[2020-04-08] MEDS: IV NS 0.9% 1,000 ML IV PRN (09:43)
[2020-04-08] MEDS ORDERED: Magnesium 1GM/D5W 100ML PREMIX 100 ML IV SCH (10:00)
--- NOTE | 2020-04-08 10:49 | NUR ---
COUNTY ATTORNEY NOTES OR TEAM AT BEDSIDE , PT STABLE AT THIS TIME , NO COMPLAINTS , VSS , PRE OP CHECK LIST COMPLETED , WILL CONTINUE TO MONITOR
[2020-04-08] MEDS ORDERED: LIDOCAINE HCL/MPF 1% 30 ML VIAL IJ ONE (10:55)
[2020-04-08] MEDS ORDERED: BACITRACIN 50000 UNITS/VIAL ONE (10:55)
[2020-04-08] MEDS ORDERED: FENTANYL PF 100MCG/2ML AMPUL ONE (11:06)
[2020-04-08] MEDS ORDERED: BUPIVACAINE 0.5 % PF 150 MG/30 ML VIAL ONE (11:08)
[2020-04-08] MEDS: DOCUSATE SODIUM 100 MG CAPSULE PO SCH ×2 (12:25→17:21)
[2020-04-08] MEDS: INSULIN REGULAR, HUMAN 100 UNIT/ML 3 ML VIAL SQ PRN ×2 (12:39→17:27)
--- NOTE | 2020-04-08 17:29 | NUR ---
SERVICE LINE BUS CLEANER NOTES CALLED DR KRISHNA VERIFIED IF PT IS SCHEDULED FOR TRANSACTION ADVISORY SERVICES MANAGER PROCEDURE FOR TOMORROW PROCEDURE CONSENT IS NOT ORDERED AT THIS TIME PER MD HE WILL PUT IT LATER .
--- NOTE | 2020-04-08 17:39 | NUR ---
FOOD MIXER REPAIRER NOTES CALLED DR VILLALTA TO VERIFY DAKINS SOLUTION STRENGTH POST DEBRIDEMENT , PER MD ORDER DAKINS 1/4 0.125% DAILY / PRN ORDER CARRIED OUT
[2020-04-08] MEDS ORDERED: ANESTHESIA TRAY IN PYXIS 1 EA TRAY MC ONE (18:58)
--- NOTE | 2020-04-08 20:19 | NUR ---
UPHOLSTERER INSIDE OPENING NOTES RECEIVED PT RESTING IN BED. A/O X 4 FOR S/P CATH PLACEMENT AND WILL RETURN FOR ANOTHER PLACEMENT TOMORROW 04/09. CONSENT SIGNED AND PLACED IN CHART. NO S/S OF SOB OR RESPIRATORY DISTRESS NOTED AT THIS TIME. BREATHING IS EVEN AND UNLABORED. ON HARPOONER, PT HAS NSR WITH HR OF 72. PT HAS BSC. IV SITES OF ALEJO #20 AND LFA #20 FLUSHED WITH NS RUNNING AT 75 ML/HR. DRESSING ON RIGHT FOOT. BED IS LOCKED IN LOWEST POSITION WITH BED ALARM ON. CALL LIGHT WITHIN REACH. WILL CONTINUE TO MONITOR.
[2020-04-08] MEDS: ATORVASTATIN 10 MG TABLET PO SCH (21:17)
[2020-04-08] MEDS: *INSULIN REGULAR(HUMULIN R)HUM 100 UNIT/ML VIAL SQ PRN (21:28)
[2020-04-09] VITALS (30 sets, daily range): BP systolic 63–154; BP diastolic 25–93
[2020-04-09] MEDS: IV NS 0.9% 1,000 ML IV PRN ×4 (01:51→18:57)
[2020-04-09 03:55] LABS: BASOPHILS % (AUTO) 0.6 % (0.0-2.0); EOSINOPHILS % (AUTO) 4.7 % (0.0-6.0); HEMATOCRIT 28 % (33-45); HEMOGLOBIN 9.7 g/dL (11.5-14.8); LYMPHOCYTES # (AUTO) 0.4 /CMM (0.8-4.8); LYMPHOCYTES % (AUTO) 6.3 % (20.0-44.0); MEAN CORPUSCULAR HGB CONC 34 g/dl (31.0-36.0); MEAN CORPUSCULAR VOLUME 85 fL (82-100); MONOCYTES # (AUTO) 0.6 /CMM (0.1-1.30); MONOCYTES % (AUTO) 10.2 % (2.0-12.0); NEUTROPHILS # (AUTO) 4.5 /CMM (1.8-8.9); NEUTROPHILS % (AUTO) 78.2 % (43.0-81.0); PLATELET COUNT (AUTO) 239 /CMM (150-450); RED BLOOD CELL COUNT(AUTO) 3.31 MIL/uL (4.0-5.2); WHITE BLOOD COUNT (AUTO) 5.7 K/uL (4.3-11.0)
[2020-04-09 04:11] LABS: CALCIUM, SERUM 9.1 mg/dL (8.5-10.1); CARBON DIOXIDE 19 mmol/L (21-32); CHLORIDE 106 mmol/L (98-107); CREATININE 1.4 mg/dL (0.6-1.3); GLUCOSE 233 mg/dL (74-106); MAGNESIUM 1.9 mg/dL (1.8-2.4); PHOSPHORUS 2.1 mg/dL (2.5-4.9); POTASSIUM 4.5 mmol/L (3.5-5.1); SODIUM SERUM 136 mmol/L (136-145); UREA NITROGEN, BLOOD 24 mg/dL (7-18)
[2020-04-09] MEDS ORDERED: IV NS 0.9% 1,000 ML ONE (06:10)
[2020-04-09] MEDS ORDERED: IV SET PRIMARY 1 EA INFUS.SET MC ONE (06:10)
[2020-04-09] MEDS ORDERED: IODIXANOL 150 ML IV ONE (06:11)
[2020-04-09] MEDS ORDERED: LIDOCAINE HCL/PF 1% 30 ML SDV ONE (06:11)
--- NOTE | 2020-04-09 06:27 | NUR ---
PT SENT DOWN TO RESTAURANT GENERAL MANAGER AT THIS TIME. ALL BELONGINGS INSIDE THE ROOM.
--- NOTE | 2020-04-09 06:30 | NUR ---
DECISION SUPPORT ANALYST CLOSING NOTE PT WAS PICKED UP BY OR STAFF FOR PROCEDURE. PT GOWNED AND TRANSFERRED IN STABLE CONDITION. VSS. WILL ENDORSE TO ONCOMING NURSE FOR CONTINUATION OF CARE.
[2020-04-09] MEDS ORDERED: FENTANYL PF 100MCG/2ML AMPUL ONE (06:44)
[2020-04-09] MEDS ORDERED: HEPARIN SODIUM, PORCINE 1,000 UNIT/ML VIAL ONE (07:08)
[2020-04-09] MEDS ORDERED: HEPARIN SODIUM, PORCINE 5000 UNITS/1 ML VIAL ONE (07:08)
[2020-04-09] MEDS ORDERED: NICARDIPINE HCL 25 MG/10 ML VIAL IV ONE (07:12)
[2020-04-09] MEDS: BLOOD SUGAR DIAGNOSTIC 1 EACH STRIP VI SCH ×4 (07:30→21:10)
--- NOTE | 2020-04-09 07:30 | NUR ---
Patient is in optical lab technician for diagnostic procedure
--- NOTE | 2020-04-09 08:28 | NUR ---
Patient is back from warehouse general laborer, hooked up to monitors, on Nc at 4 L, SPO2 is 96%, tolerating well, will cont to monitor
--- NOTE | 2020-04-09 08:30 | NUR ---
RN OPENING NOTES Patient is present at the bed, flat, A/Ox4, on NC @ $L, SPO2 is 100%, weak and lethargic after procedure, shealth present on Right groin, have to maintain dressing and pressure for 2h, till remove. Tele-monitor readings is SR with SB-SR. IV line on R hand noted and L FA noted, both intact and patent. Safety measures in place, call light in reach, bed is flat as ordered, will cont to monitor
--- NOTE | 2020-04-09 08:30 | NUR ---
Per pathology laboratory technologist order patient must maintain flat position fter the procedure and 6h supine and flat after shealth removal
[2020-04-09] MEDS: HEPARIN SODIUM, PORCINE 5000 UNITS/1 ML VIAL SQ SCH ×2 (09:00→21:00)
[2020-04-09] MEDS: OXYBUTYNIN CHLORIDE ER 5 MG TAB PO SCH (09:00)
[2020-04-09] MEDS: AMLODIPINE BESYLATE 10 MG TABLET PO SCH (09:00)
[2020-04-09] MEDS: hydrALAZINE HCL 50 MG TABLET PO SCH ×3 (09:00→17:13)
[2020-04-09] MEDS: LINEZOLID 600 MG TABLET PO SCH ×2 (09:00→21:11)
[2020-04-09] MEDS: MULTIVITAMINS,THERAGRAN 1 UDTAB TABLET PO SCH (09:00)
[2020-04-09] MEDS: DOCUSATE SODIUM 100 MG CAPSULE PO SCH ×2 (09:00→17:12)
[2020-04-09] MEDS: CLOPIDOGREL BISULFATE 75 MG TABLET PO SCH (09:00)
[2020-04-09] MEDS: ATENOLOL 25 MG TABLET PO SCH (09:00)
[2020-04-09] MEDS: CHOLECALCIFEROL (VITAMIN D 3) 400 UNIT TABLET PO SCH (09:00)
[2020-04-09] MEDS: ASPIRIN 81 MG TAB.CHEW PO SCH (09:00)
[2020-04-09] MEDS ORDERED: DAKINS QUARTER STRENGTH (0.125%) 480 ML BOTTLE TOP SCH (09:00)
[2020-04-09] MEDS ORDERED: IV NS 0.9% 500 ML IV ONE ×2 (09:30→10:00)
[2020-04-09] MEDS ORDERED: ONDANSETRON HCL/PF 4 MG/2 ML VIAL IV PRN (12:00)
[2020-04-09] MEDS: ONDANSETRON HCL/PF 4 MG/2 ML VIAL IVP PRN (12:08)
[2020-04-09] MEDS: INSULIN REGULAR, HUMAN 100 UNIT/ML 3 ML VIAL SQ PRN (12:19)
--- NOTE | 2020-04-09 12:30 | NUR ---
master motorcycle technician Robert at bed site, removing rick
--- NOTE | 2020-04-09 12:48 | NUR ---
Shealth removed, tolerated well, no bleeding, blood pressure is stable,114/64, HR 64
--- NOTE | 2020-04-09 15:00 | NUR ---
Dr Pratt present at bed site, changing patient's dressings on her foot
[2020-04-09] MEDS ORDERED: K PHOS NEUTRAL 250 MG TABLET PO ONE (17:00)
--- NOTE | 2020-04-09 18:45 | NUR ---
Transfered patient to room 106 via bed, report given to Callum
--- NOTE | 2020-04-09 20:00 | NUR ---
SIMPLEX OPERATOR NOTE RECEIVED PT IN BED, AWAKE A/O X4. BREATHING EVEN AND UNLABORED WITH NO SOB OR ACUTE DISTRESS NOTED. DENIES ANY PAIN OR DISCOMFORT. IV SITES PATENT AND INTACT. DRESSING CLEAN AND DRY. RIGHT FOOT DRESSING INTACT WITH NO VISUAL BLEEDING NOTED ON DRESSING. BED IN LOWEST POSITION. CALL LIGHT WITHIN REACH. ALL NEEDS RENDERED. WILL CONTINUE TO MONITOR.
--- NOTE | 2020-04-09 21:13 | NUR ---
teletype telegrapher notes Heparin 5000 units held due to pt s/p wound debridement.
[2020-04-09] MEDS: ATORVASTATIN 10 MG TABLET PO SCH (21:16)
[2020-04-09] MEDS: *INSULIN REGULAR(HUMULIN R)HUM 100 UNIT/ML VIAL SQ PRN (21:18)
[2020-04-10] VITALS (18 sets, daily range): BP systolic 93–132; BP diastolic 46–83
--- NOTE | 2020-04-10 06:44 | NUR ---
SOLAR THERMAL TECHNICIAN CLOSING NOTE PT IN BED, AWAKE A/O X4. BREATHING EVEN AND UNLABORED WITH NO SOB OR ACUTE DISTRESS NOTED IN RA.02 SATURATION AT 95%. DENIES ANY PAIN OR DISCOMFORT. IV SITES PATENT AND INTACT. NS INFUSING WELL AT 75ML/HR. DRESSING CLEAN AND DRY. RIGHT FOOT DRESSING INTACT WITH NO VISUAL BLEEDING NOTED ON DRESSING. BED IN LOWEST POSITION. SRX2 UP. CALL LIGHT WITHIN REACH. ALL NEEDS RENDERED. WILL ENDORSE WITH AM NURSE FOR CONTINUITY OF CARE.
[2020-04-10 06:51] LABS: BASOPHILS % (AUTO) 0.3 % (0.0-2.0); EOSINOPHILS % (AUTO) 0.4 % (0.0-6.0); HEMOGLOBIN 7.1 g/dL (11.5-14.8); LYMPHOCYTES # (AUTO) 0.5 /CMM (0.8-4.8); LYMPHOCYTES % (AUTO) 6.1 % (20.0-44.0); MEAN CORPUSCULAR HGB CONC 35 g/dl (31.0-36.0); MEAN CORPUSCULAR VOLUME 89 fL (82-100); MONOCYTES # (AUTO) 0.8 /CMM (0.1-1.30); MONOCYTES % (AUTO) 9.4 % (2.0-12.0); NEUTROPHILS # (AUTO) 7.4 /CMM (1.8-8.9); NEUTROPHILS % (AUTO) 83.8 % (43.0-81.0); PLATELET COUNT (AUTO) 254 /CMM (150-450); RED BLOOD CELL COUNT(AUTO) 2.27 MIL/uL (4.0-5.2); WHITE BLOOD COUNT (AUTO) 8.8 K/uL (4.3-11.0)
[2020-04-10 07:03] LABS: HEMATOCRIT 20 % (33-45)
[2020-04-10 07:17] LABS: CALCIUM, SERUM 8.6 mg/dL (8.5-10.1); CARBON DIOXIDE 18 mmol/L (21-32); CHLORIDE 108 mmol/L (98-107); CREATININE 2.2 mg/dL (0.6-1.3); GLUCOSE 221 mg/dL (74-106); MAGNESIUM 1.8 mg/dL (1.8-2.4); PHOSPHORUS 3.7 mg/dL (2.5-4.9); POTASSIUM 4.4 mmol/L (3.5-5.1); SODIUM SERUM 137 mmol/L (136-145); UREA NITROGEN, BLOOD 31 mg/dL (7-18)
--- NOTE | 2020-04-10 08:00 | NUR ---
MASTER SHEET CLERK NOTE PATIENT IN BED AWAKE ALERT ON RA, NO SOB NOTED AT THIS TIME , ON TELE MONITOR SR WITH [address] DEGREE AV BLOCK , RT FOOT WITH DRESSING INTACT, NO BLEEDING NOTED, LT FA AND RT UPPER ARM INTACT AND FLUSHED WELL ,ON IVF ORDERED ,BLOOD SUGAR CHECKED 238 MG]\DL ,WILL GIVE COVERAGE WITH INSULIN, BED IN LOWEST AND LOCKED POSITION, CALL LIGHT WITHIN REACH PLAN OF CARE DISCUSSED WITH PATIENT ,WILL CONT TO MONITOR CLOSELY
[2020-04-10] MEDS: INSULIN REGULAR, HUMAN 100 UNIT/ML 3 ML VIAL SQ PRN ×3 (08:04→17:56)
[2020-04-10 08:52] LABS: LYMPHOCYTES % (MANUAL) 5 % (16-48); MONOCYTES % (MANUAL) 9 % (0-11.0); NEUTROPHILS % (MANUAL) 86 (42-76)
[2020-04-10] MEDS: BLOOD SUGAR DIAGNOSTIC 1 EACH STRIP VI SCH ×4 (08:57→21:15)
[2020-04-10] MEDS: hydrALAZINE HCL 50 MG TABLET PO SCH ×3 (08:57→17:00)
[2020-04-10] MEDS: AMLODIPINE BESYLATE 10 MG TABLET PO SCH (08:58)
[2020-04-10] MEDS: ATENOLOL 25 MG TABLET PO SCH (08:58)
[2020-04-10] MEDS: DOCUSATE SODIUM 100 MG CAPSULE PO SCH ×2 (09:00→17:00)
[2020-04-10] MEDS: CHOLECALCIFEROL (VITAMIN D 3) 400 UNIT TABLET PO SCH (09:03)
[2020-04-10] MEDS: LINEZOLID 600 MG TABLET PO SCH ×2 (09:03→21:15)
[2020-04-10] MEDS: MULTIVITAMINS,THERAGRAN 1 UDTAB TABLET PO SCH (09:04)
[2020-04-10] MEDS: OXYBUTYNIN CHLORIDE ER 5 MG TAB PO SCH (09:11)
[2020-04-10] MEDS: ASPIRIN 81 MG TAB.CHEW PO SCH (09:12)
[2020-04-10] MEDS: CLOPIDOGREL BISULFATE 75 MG TABLET PO SCH (09:12)
[2020-04-10] MEDS: HEPARIN SODIUM, PORCINE 5000 UNITS/1 ML VIAL SQ SCH ×2 (09:20→21:15)
--- NOTE | 2020-04-10 09:28 | NUR ---
MS RN NOTE Dr. Romero and Dr. Bhandari notified that hemoglobin is 7.1 and it is ok to give plavix, heparin and aspirin. Per Dr. Bhandari transfuse 2 units prbc. Blood transfusion Consent form obtained.
--- NOTE | 2020-04-10 09:46 | NUR ---
ms rn note Physical Therapy at bedside. Physical therapy eval done. Ok to ambulate with stand by assistance. Will continue to monitor.
[2020-04-10] MEDS: IV NS 0.9% 1,000 ML IV PRN ×2 (10:12→23:15)
--- NOTE | 2020-04-10 10:23 | NUR ---
MS RN NOTE PT HAS SEVERE RASHES ON BACK, LIKE HIVES ON ABDOMEN AND BILATERAL LEG. COMPLAINED OF SEVERE ITCHINESS. CALLED DR. BANEGAS, ORDERED BENADRYL 25MG IV Q4HR PRN, WILL FOLLOW UP.
[2020-04-10] MEDS: diphenhydrAMINE HCL 50 MG/ML VIAL IV PRN ×3 (10:30→21:15)
--- NOTE | 2020-04-10 10:51 | NUR ---
MS RN NOTE PATIENT HAS RASHES ON BODY , CALLED TO DR GONZALEZ IF STILL OK TO GIVE BLOOD TRANSFUSION, WILL AWAIT FOR RETURN CALL
--- NOTE | 2020-04-10 11:12 | NUR ---
BOATBUILDER WOOD NOTE AFTER BENADRYL GIVEN RESTING COMFORTABLY. BP 94/62 HR 84, SATURATION 96%
[2020-04-10] MEDS: methylPREDNISolone SOD SUCC 125 MG/2ML VIAL IV SCH ×2 (11:28→17:50)
[2020-04-10] MEDS: ONDANSETRON HCL/PF 4 MG/2 ML VIAL IVP PRN (11:30)
--- NOTE | 2020-04-10 11:39 | NUR ---
FAVIO MORENO FOR NAUSEA GIVEN SOLU MEDROL GIVEN ORDERED WILL F\U PER DR BASSAM CAMPBELL TO HOLD BLOOD TRANSFUSION FOR NOW October ON, WILL MONITOR Addendum: 04/10/20 at 1158 by AIDEN BELTRAN RN NOW PATIENT C\O SWELLING TONGUE AND LIPS BP 94/62 SATURATION 92 % DR BANEGAS NOTIFIED WITH ORDER PEPCID 20 MG IVP ,ORDER CARRIED OUT
[2020-04-10] MEDS ORDERED: FAMOTIDINE/PF INJ 20 MG/2 ML VIAL IV STA (11:51)
--- NOTE | 2020-04-10 12:14 | NUR ---
TRACK WELDER NOTE DR HAY SECURITY FLEX OFFICER AT BEDSIDE NOTIFIED THAT PATIENT HAS ALLERGIC REACTION HAS RASHES ON BODY AWARE THAT SOLUMEDROL PEPCID ZOFRAN BENADRYL IV WAS GIVEN, BP 94/62 SATURATION 92% OK TO TRANSFER TO TELE WILL F\U
--- NOTE | 2020-04-10 13:00 | NUR ---
CONTINGENTS SUPERVISOR NOTE PER DR BASSAM CAMPBELL TO HOLD BLOOD TRANSFUSION FOR TODAY
--- NOTE | 2020-04-10 13:05 | NUR ---
MANGANESE WHEELER NOTE DR GREENE AT BEDSIDE NOTIFIED THAT PATIENT HAS ALLERGIC REACTION STATED THAT POSSIBLE TO IODINE FROM ANGIO GRAM , AWARE THAT SATURATIONS 95% AT THIS TIME AND AWAR THAT TONGUE AND LIPS IS SWOLLEN AWARE THAT SOLUMEDROL ,PEPCID , BENADRYL GIVEN ,WILL F\U AND NO SOB NOTED AT THIS TIME AND CANT EAT FOR JASON ON 02 2L WILL CONT TO MONITORING STATED THAT WILL CHECK IT OUT
[2020-04-10] MEDS ORDERED: EPINEPHRINE (1:1000) 1 MG/ML AMPUL SUBCUT ONE (15:00)
--- NOTE | 2020-04-10 15:22 | NUR ---
GTA NOTE DR BERNABE NOTIFIED THAT PATIENT STILL WITH SWEELIMG LIPS AND TONGUE ,ABLE TO SWALLOW TO EAT OR TAKE PO MEDS, ORDERED EPINEPHRINE SQ CHARGE NURSE SOON ADMINISTERED ORDERED BP 130/78 SATURATION 92% ON IVF ORDERED OK TO PLACE MID LINE , ORDER CARRIED OUR ALSO OK TO TRANSFER TO ICU FOIR CLOSE MONITORING Addendum: 04/10/20 at 1656 by AIDEN BELTRAN RN CORRECTION UNABLE TO SWALLOW TO EAT OR TAKE PO MEDS, DR BANEGAS NOTIFIED WITH ORDERED EPINEPHRINE 0.3 MG ,WILL F\U
--- NOTE | 2020-04-10 16:12 | NUR ---
director television note mid line inserted as ordered, transferred to icu for close monitoring by acls protocol with bed ,report given to prema rose
--- NOTE | 2020-04-10 16:15 | NUR ---
TIE SAWYER OPENING NOTE Received patient awake. Transferred from [facility] 106 to room 257. Received report from Suzanna QUINONES. Patient was given Benadryl and Epinephrine for allergic reaction to unknown source. Possibly the contrast from angiogram. Per report hold blood transfusion today. Alert oriented x4. Verbally responsive. Tele reading SR 80-90s. Patient is ambulatory and requesting bedside commode. Noted with R foot dressing intact. Has LFA #22 flushes well and ALEJO Midline running NS @ 75ml/hr. Safety measures implemented. Call light within reach. Bed locked and on lowest position. Will closely monitor. Addendum: 04/10/20 at 1641 by MONSERRAT LEBRON RN PATIENT NOTED WITH LIP AND TONGUE SWELLING. SPEECH MUFFLED.
[2020-04-10 18:33] LABS: BASOPHILS % (AUTO) 0.2 % (0.0-2.0); EOSINOPHILS % (AUTO) 0.1 % (0.0-6.0); HEMATOCRIT 22 % (33-45); HEMOGLOBIN 7.5 g/dL (11.5-14.8); LYMPHOCYTES # (AUTO) 0.2 /CMM (0.8-4.8); LYMPHOCYTES % (AUTO) 2.6 % (20.0-44.0); MEAN CORPUSCULAR HGB CONC 35 g/dl (31.0-36.0); MEAN CORPUSCULAR VOLUME 90 fL (82-100); MONOCYTES # (AUTO) 0.3 /CMM (0.1-1.30); MONOCYTES % (AUTO) 4.3 % (2.0-12.0); NEUTROPHILS # (AUTO) 6.2 /CMM (1.8-8.9); NEUTROPHILS % (AUTO) 92.8 % (43.0-81.0); PLATELET COUNT (AUTO) 262 /CMM (150-450); RED BLOOD CELL COUNT(AUTO) 2.41 MIL/uL (4.0-5.2); WHITE BLOOD COUNT (AUTO) 6.7 K/uL (4.3-11.0)
[2020-04-10 18:44] LABS: CALCIUM, SERUM 8.1 mg/dL (8.5-10.1); CARBON DIOXIDE 19 mmol/L (21-32); CHLORIDE 105 mmol/L (98-107); CREATININE 2.6 mg/dL (0.6-1.3); GLUCOSE 335 mg/dL (74-106); MAGNESIUM 1.8 mg/dL (1.8-2.4); PHOSPHORUS 3.6 mg/dL (2.5-4.9); POTASSIUM 4.9 mmol/L (3.5-5.1); SODIUM SERUM 135 mmol/L (136-145); UREA NITROGEN, BLOOD 35 mg/dL (7-18)
--- NOTE | 2020-04-10 19:35 | NUR ---
RN CLOSING NOTE PATIENT IN BED AWAKE CALM AND RELAXED. ON NC 2L. TOLERATING WELL. O2 SAT 96%. VITAL SIGNS WITHIN NORMAL LIMITS. STILL NOTED WITH TONGUE AND LIP SWELLING. NO CO PAIN OR DISCOMFORT. SAFETY MEASURES REINFORCED. ENDORSED TO ANALYSIS MANAGER NURSE FOR REAL.
[2020-04-10] MEDS: ATORVASTATIN 10 MG TABLET PO SCH (21:15)
[2020-04-10] MEDS: FAMOTIDINE/PF INJ 20 MG/2 ML VIAL IV SCH (21:15)
[2020-04-10] MEDS: *INSULIN REGULAR(HUMULIN R)HUM 100 UNIT/ML VIAL SQ PRN (21:30)
[2020-04-11] VITALS (16 sets, daily range): BP systolic 89–125; BP diastolic 43–70
[2020-04-11] MEDS: methylPREDNISolone SOD SUCC 125 MG/2ML VIAL IV SCH ×4 (00:59→17:17)
[2020-04-11] MEDS: diphenhydrAMINE HCL 50 MG/ML VIAL IV PRN ×5 (01:58→21:48)
[2020-04-11 04:05] LABS: BASOPHILS % (AUTO) 0.2 % (0.0-2.0); HEMATOCRIT 23 % (33-45); HEMOGLOBIN 7.5 g/dL (11.5-14.8); LYMPHOCYTES # (AUTO) 0.3 /CMM (0.8-4.8); LYMPHOCYTES % (AUTO) 5.1 % (20.0-44.0); MEAN CORPUSCULAR HGB CONC 33 g/dl (31.0-36.0); MEAN CORPUSCULAR VOLUME 89 fL (82-100); MONOCYTES # (AUTO) 0.4 /CMM (0.1-1.30); MONOCYTES % (AUTO) 5.5 % (2.0-12.0); NEUTROPHILS # (AUTO) 5.9 /CMM (1.8-8.9); NEUTROPHILS % (AUTO) 89.2 % (43.0-81.0); PLATELET COUNT (AUTO) 312 /CMM (150-450); RED BLOOD CELL COUNT(AUTO) 2.54 MIL/uL (4.0-5.2); WHITE BLOOD COUNT (AUTO) 6.6 K/uL (4.3-11.0)
[2020-04-11 04:17] LABS: ALANINE AMINOTRANSFERASE 20 U/L (12-78); ALBUMIN 2.6 g/dL (3.4-5.0); ALKALINE PHOSPHATASE 64 U/L (46-116); ASPARTATE AMINOTRANSFERASE 25 U/L (15-37); BILIRUBIN,TOTAL 0.3 mg/dL (0.2-1.0); CALCIUM, SERUM 8.1 mg/dL (8.5-10.1); CARBON DIOXIDE 18 mmol/L (21-32); CHLORIDE 104 mmol/L (98-107); CREATININE 3.1 mg/dL (0.6-1.3); GLUCOSE 266 mg/dL (74-106); MAGNESIUM 1.7 mg/dL (1.8-2.4); PHOSPHORUS 3.2 mg/dL (2.5-4.9); POTASSIUM 4.8 mmol/L (3.5-5.1); SODIUM SERUM 133 mmol/L (136-145); TOTAL PROTEIN, SERUM 6.2 g/dL (6.4-8.2); UREA NITROGEN, BLOOD 41 mg/dL (7-18)
--- NOTE | 2020-04-11 06:47 | NUR ---
Patient remains in no acute distress in bed. patient is a/o x 4 and able to make needs known. Mireyatent is complaining of itching all over body despite benadryl give as ordered. will endorse to am shift to possibly get cream for patient. patient continues on o2 via nasal cannula at 2lpm and tolerating well. patient has right upper arm midline that is clean dry intact and patent with NS @ 75ml/hr. bed in low lock position with rails up x 2. call light within reach and all safety measures ensured and carried out. will endorse care to am RN for continuity of care.
--- NOTE | 2020-04-11 07:50 | NUR ---
ASSEMBLER SMALL PRODUCTS: pt is sleepy, awake up easy, needy, A/Ox3, no pain, c/o itching slightly, O2sat. 92-94% on ra, no SOB, SR, SBP over 100, still swollen lips, rash is better by report, oriented for POC, meds
[2020-04-11] MEDS: BLOOD SUGAR DIAGNOSTIC 1 EACH STRIP VI SCH ×4 (08:14→22:01)
[2020-04-11] MEDS: CHOLECALCIFEROL (VITAMIN D 3) 400 UNIT TABLET PO SCH (08:15)
[2020-04-11] MEDS: ATENOLOL 25 MG TABLET PO SCH (08:15)
[2020-04-11] MEDS: ASPIRIN 81 MG TAB.CHEW PO SCH (08:15)
[2020-04-11] MEDS: LINEZOLID 600 MG TABLET PO SCH ×2 (08:15→21:44)
[2020-04-11] MEDS: MULTIVITAMINS,THERAGRAN 1 UDTAB TABLET PO SCH (08:15)
[2020-04-11] MEDS: AMLODIPINE BESYLATE 10 MG TABLET PO SCH (08:15)
--- NOTE | 2020-04-11 08:15 | NUR ---
FOAMING MACHINE OPERATOR: pt.is uncooperative, needy, refused for breakfast and got new, removed monitor pads, [id number], applied back, O2sat. 96-97%, SR, bp 125/59, continue IVF, oriented again re POC, meds, abnormal lab results H/H 7.5/23, BG 319, BUN/cr 41/3.1, instructed re injury, fall prevention measures, waiting for possible transfer/dc
[2020-04-11] MEDS: CLOPIDOGREL BISULFATE 75 MG TABLET PO SCH (08:16)
[2020-04-11] MEDS: hydrALAZINE HCL 50 MG TABLET PO SCH ×3 (08:16→16:46)
[2020-04-11] MEDS: OXYBUTYNIN CHLORIDE ER 5 MG TAB PO SCH (08:16)
[2020-04-11] MEDS: DOCUSATE SODIUM 100 MG CAPSULE PO SCH ×2 (08:16→17:17)
[2020-04-11] MEDS: FAMOTIDINE/PF INJ 20 MG/2 ML VIAL IV SCH ×2 (08:17→21:44)
[2020-04-11] MEDS: HEPARIN SODIUM, PORCINE 5000 UNITS/1 ML VIAL SQ SCH (08:19)
--- NOTE | 2020-04-11 09:45 | NUR ---
SOLAR LAB TECHNICIAN: Pt.is A/Ox3, uncooperative, abusive to nurses with f words, removed monitor pads, [id number], removed R.Arm midline, said: I want to walk, use station phone, leave me alone, got detailed explanation re health risks, ICU rules, injury/falls risks, applied dressing over R.upper arm/no bleeding now, got SOB, applied NC O2 2l, got bed, O2sat. up to 96-98%, SR, BP 119/63, charge nurse notified
[2020-04-11] MEDS ORDERED: Magnesium 1GM/D5W 100ML PREMIX 100 ML IV SCH (10:45)
--- NOTE | 2020-04-11 11:00 | NUR ---
BOAT CANVAS MAKER INSTALLER: was in room, updated, ordered transfer to Tele, see new orders, pt.is transferred to Tele after full report was given for Nemo RN included pt.needs IVL, wound dressing change, new orders, pt.said: all belongings are with her, no c/o
--- NOTE | 2020-04-11 11:15 | NUR ---
PROCESS ENGINEERING INTERN RECEIVING NOTES RECEIVED PATIENT (TRANSFER) FROM ICU. PATIENT IN MEDICALLY STABLE CONDITION AT THIS MOMENT, A/O X3. VS: BP 98/59, HR 71 TEMP 98.4 O2 985 ON ROOM AIR. PATIENT STILL WITH SWOLLEN LIPS FROM AN UNIDENTIFIED ALLERGIC REACTION AND STILL RECEIVING PRN BENADRYL. PATIENT CAME WITH NO IV LINE. STARTED A NEW LINE AT LAC G#20 AND RE-STARTED HER FLUIDS AT 75 MLS/HR. SAFETY PRECAUTIONS IN P,LENI; BED IN LOW POSITION AND LOCKED, RAILS UP X2, CALL LIGHT WITHIN REACH. WILL CONTINUE TO MONITOR PATIENT.
[2020-04-11] MEDS: INSULIN REGULAR, HUMAN 100 UNIT/ML 3 ML VIAL SQ PRN ×3 (11:52→17:23)
--- NOTE | 2020-04-11 14:12 | NUR ---
TAPPER BALANCE WHEEL SCREW HOLE NOTES RE-CHECKED ACCU-CHECK. BS AT 415. NOTIFIED MD; RECEIVED ORDER FOR ADMINISTER 15 UNITS OF INSULIN. WILL REASSESS.
[2020-04-11 16:15] LABS: CALCIUM, SERUM 8.3 mg/dL (8.5-10.1); CARBON DIOXIDE 14 mmol/L (21-32); CHLORIDE 100 mmol/L (98-107); CREATININE 3.9 mg/dL (0.6-1.3); GLUCOSE 347 mg/dL (74-106); POTASSIUM 5.4 mmol/L (3.5-5.1); SODIUM SERUM 131 mmol/L (136-145); UREA NITROGEN, BLOOD 50 mg/dL (7-18)
--- NOTE | 2020-04-11 16:18 | NUR ---
BIOLOGIST AIDE NOTES STARTED BLOOD TRANSFUSION. PRE TRANSFUSION VS: BP 105/70 (LAYING) HR: 72 T: 97.5 O2 97% ON 2L 15 MIN INTO BLOOD TRANSFUSION: BP 106/50 (SITTING) HR 72 T 97.3 O2 98% ON 2L
--- NOTE | 2020-04-11 16:46 | NUR ---
CARPENTER SUPERVISOR WOODEN SHIP NOTES HELD 1700 BP MEDICATION DUE TO LOWER BP 1 HR AGO AND BOREDERLINE BP RIGHT NOW DURING BLOOD TRANSFUSION. WILL MONITOR.
--- NOTE | 2020-04-11 19:12 | NUR ---
FLAT SHEET MAKER CLOSING NOTES PATIENT IN BED, WATCHING TV, A/O X3 AND STILL WITH BLOOD TRANSFUSION ON. ENDORSED TO PARAMEDIC SUPERVISOR NURSE BLOD TRANSFUSION. PATIENT ON OXYGEN THERAPY AT 2 LPM VIA NASAL CANNULA; BREATHING IS EVEN AND UNLABORED; NO SOB NOTED. NO COMPLAINS OF PAIN DURING THE DAY. TELE MONITOR WITH A READING OF SINUS RHYTHM. ALL NEEDS ATTENDED THROUGHOUT THE DAY. ALEA MIDLINE WAS INSERTED TO DAY AND BLOOD IS TRANSFUSING AT THIS TIME. SAFETY PRECAUTIONS IN PLACE; BED IN LOW POSITION AND LOCKED, RAILS UP X2, CALL LIGHT WITHIN REACH. EVERYTHING ENDORSED TO PARAMEDIC SUPERVISOR NURSE.
--- NOTE | 2020-04-11 19:30 | NUR ---
TELE/RN OPENING NOTES RECEIVED PATIENT IN BED RESTING. PATIENT IS ALERT AND ORIENTED X 3. PATIENT IS CURRENTLY RECEIVING BLOOD TRANSFUSION 1 UNIT ON ALEA. NO SIGNS OF SOB OR RESPIRATORY DISTRESS NOTED. PATIENTS BREATHING IS EVEN AND UNLABORED. PATIENT STATES NO PAIN AT THIS TIME. SAFETY MEASURES ARE IN PLACE, BED IS LOCKED AND PLACED IN THE LOW POSITION, SIDE RAILS UP X 2. CALL LIGHT IS WITHIN REACH. WILL CONTINUE TO MONITOR DURING SHIFT.
--- NOTE | 2020-04-11 19:35 | NUR ---
TELE/RN NOTES PATIENT COMPLETED BLOOD TRANSFUSION. V/S ARE 113/53, HR 61, TEMP 97.4, O2 96 ON 2L NC RR 18. PATIENT IS STABLE. WILL CONTINUE TO MONITOR.
[2020-04-11] MEDS: ATORVASTATIN 10 MG TABLET PO SCH (21:44)
--- NOTE | 2020-04-11 21:55 | NUR ---
TELE/RN NOTES PATIENT GIVEN BENADRYL IV 25 MG FOR ITCHING. WILL CONTINUE TO MONITOR.
[2020-04-11] MEDS ORDERED: INSULIN GLARGINE, 100 UNIT/ML CARTRIDGE SQ SCH (22:00)
--- NOTE | 2020-04-11 22:30 | NUR ---
TELE/RN NOTES PATIENT ACCU CHEK READING 161. PATIENT REFUSED TO TAKE LANTUS AND REGULAR INSULIN. PATIENT IS EATING SNACKS. WILL CONTINUE TO MONITOR.
[2020-04-12] MEDS: methylPREDNISolone SOD SUCC 125 MG/2ML VIAL IV SCH ×5 (00:22→23:18)
--- NOTE | 2020-04-12 03:00 | NUR ---
TELE/RN NOTES PATIENT IN BED RESTING. PATIENT IN NO SIGNS OF DISTRESS. REAL TO STACIE DORSEY.
--- NOTE | 2020-04-12 03:00 | NUR ---
LEAD CASTER NOTES RECEIVED REPORT FROM STACIE MUÑOZ; WILL CONT PLAN OF CARE
[2020-04-12 04:00] VITALS: BP 119/68
[2020-04-12] MEDS: IV NS 0.9% 1,000 ML IV PRN (04:06)
[2020-04-12 06:20] LABS: BASOPHILS % (AUTO) 0.2 % (0.0-2.0); HEMATOCRIT 26 % (33-45); HEMOGLOBIN 8.8 g/dL (11.5-14.8); LYMPHOCYTES # (AUTO) 0.1 /CMM (0.8-4.8); LYMPHOCYTES % (AUTO) 2.9 % (20.0-44.0); MEAN CORPUSCULAR HGB CONC 34 g/dl (31.0-36.0); MEAN CORPUSCULAR VOLUME 92 fL (82-100); MONOCYTES # (AUTO) 0.2 /CMM (0.1-1.30); MONOCYTES % (AUTO) 4.5 % (2.0-12.0); NEUTROPHILS # (AUTO) 4.7 /CMM (1.8-8.9); NEUTROPHILS % (AUTO) 92.4 % (43.0-81.0); PLATELET COUNT (AUTO) 322 /CMM (150-450); RED BLOOD CELL COUNT(AUTO) 2.85 MIL/uL (4.0-5.2); WHITE BLOOD COUNT (AUTO) 5.1 K/uL (4.3-11.0)
[2020-04-12] MEDS: BLOOD SUGAR DIAGNOSTIC 1 EACH STRIP VI SCH ×4 (06:31→21:23)
[2020-04-12] MEDS: INSULIN REGULAR, HUMAN 100 UNIT/ML 3 ML VIAL SQ PRN ×3 (06:34→17:01)
--- NOTE | 2020-04-12 06:58 | NUR ---
MEDICAL CHEMIST NOTES PATIENT RESTING IN BED COMFORTABLY; A/OX4, BREATHING EVEN AND UNLABORED; PATIENT TOLERATING ROOM AIR WELL; NO SOB NOTED; PATIENT REFUSING TO PLACE TELE MONITOR ON, PATIENT KEEPS TAKING OFF THE MONITOR; CHARGE NURSE AWARE; ALL NEEDS RENDERED; SAFETY PRECAUTIONS IMPLEMENTED; BED LOCKED IN LOW POSITION; SIDE RAILSX2; CALL LIGHT WITHIN REACH; WILL ENDORSE TO ONCOMING SHIFT
[2020-04-12 07:17] LABS: CALCIUM, SERUM 8.4 mg/dL (8.5-10.1); CARBON DIOXIDE 13 mmol/L (21-32); CHLORIDE 94 mmol/L (98-107); CREATININE 4.3 mg/dL (0.6-1.3); GLUCOSE 305 mg/dL (74-106); MAGNESIUM 2.1 mg/dL (1.8-2.4); SODIUM SERUM 127 mmol/L (136-145); UREA NITROGEN, BLOOD 62 mg/dL (7-18)
--- NOTE | 2020-04-12 07:20 | NUR ---
AIRCRAFT ENGINE INSTALLER OPENING NOTES RECEIVED PT ON BED, AAOX4, RESPONSIVE TO ALL STIMULI. NO PRESENCE OF ACUTE RESPIRATORY DISTRESS, ON O2 AT 2LPM VIA N/C PRN. ABD SOFT AND NON DISTENDED WITH ACTIVE BOWEL SOUNDS. SKIN WARM TO TOUCH AND DRY, BLE OFFLOAD, RIGHT FOOT COVERED WITH DRESSING CLEAN AND DRY D/T NON-HEALING WOUNDS. PT DENIES PAIN AND DISCOMFORT. IV SITE AT LEFT AC #20 RUNNING AND ALEA MIDLINE NS AT 75 ML/HR, PATENT IN FLUSHING, SITE HAS NO S/X OF INFILTRATION. CALL LIGHT WITHIN REACH. SRX2 UP FOR SAFETY. TELE MONITOR SHOWS SINUS RHYTHM. PT HAS EPISODES OF NON COMPLIANCE EVIDENCED BY TAKING OFF LEADS OF TELE MONITOR, REFUSE IV HYDRATION D/T BRP, AND OXYGEN STATING NOT NEEDED AT TIMES. RISK AND BENEFITS DISCUSSED WITH PT, UNDERSTOOD. WILL CONTINUE TO MONITOR CARE.
[2020-04-12 07:41] LABS: POTASSIUM 6.2 mmol/L (3.5-5.1)
[2020-04-12 08:00] VITALS: BP 114/51
[2020-04-12] MEDS ORDERED: SODIUM POLYSTYRENE SULFONATE 15 G/60 ML BOTTLE PO ONE (08:00)
--- NOTE | 2020-04-12 08:20 | NUR ---
RETAIL SALES ADVISOR NOTES PT SEEN AND EVALUATED BY DR. MARES, EXPLAINED HD AND HD CATH PLACEMENT FOR TEMPORARY DIALYSIS R/T COLBY.
[2020-04-12] MEDS ORDERED: SODIUM BICARBONATE SYR 50 MEQ/50 ML DISP.SYRIN IV ONE (08:30)
[2020-04-12] MEDS ORDERED: Sodium Bicarbonate 150 MEQ in IV D5W 1,000 ML IV PRN (08:30)
--- NOTE | 2020-04-12 08:30 | NUR ---
PLATE GLASS INSTALLER NOTES PER DR. MARES, DC INSERT FC. STRICT I&O IMPLEMENTED,. PT ANURIC STATED. URINE SAMPLE COLLECT IF PT CAN PROVIDE ONE. PT NOTIFIED
[2020-04-12] MEDS: OXYBUTYNIN CHLORIDE ER 5 MG TAB PO SCH (08:44)
[2020-04-12] MEDS: MULTIVITAMINS,THERAGRAN 1 UDTAB TABLET PO SCH (08:44)
[2020-04-12] MEDS: DOCUSATE SODIUM 100 MG CAPSULE PO SCH ×2 (08:44→16:53)
[2020-04-12] MEDS: CLOPIDOGREL BISULFATE 75 MG TABLET PO SCH (08:44)
[2020-04-12] MEDS: ASPIRIN 81 MG TAB.CHEW PO SCH (08:44)
[2020-04-12] MEDS: diphenhydrAMINE HCL 50 MG/ML VIAL IV PRN ×2 (08:45→13:05)
[2020-04-12] MEDS: AMLODIPINE BESYLATE 10 MG TABLET PO SCH (08:45)
[2020-04-12] MEDS: CHOLECALCIFEROL (VITAMIN D 3) 400 UNIT TABLET PO SCH (08:45)
[2020-04-12] MEDS: FAMOTIDINE/PF INJ 20 MG/2 ML VIAL IV SCH (08:45)
[2020-04-12] MEDS: FUROSEMIDE 40 MG/4 ML VIAL IV SCH (08:45)
[2020-04-12] MEDS: hydrALAZINE HCL 50 MG TABLET PO SCH ×3 (08:45→16:53)
[2020-04-12] MEDS: ATENOLOL 25 MG TABLET PO SCH (08:45)
--- NOTE | 2020-04-12 09:02 | NUR ---
BOBCAT OPERATOR NOTES WRITTEN CONSENT OBTAINED FOR HEMODIALYSIS. PT UNDERSTOOD.
[2020-04-12] MEDS: LINEZOLID 600 MG TABLET PO SCH ×2 (09:14→21:11)
--- NOTE | 2020-04-12 09:20 | NUR ---
AUTOMOTIVE SERVICE ADVISOR NOTES WRITTEN CONSENT OBTAINED FOR HEMODIALYSIS CATH INSERTION. PT UNDERSTOOD.
--- NOTE | 2020-04-12 10:20 | NUR ---
DATA DESIGNER NOTES RIGHT IJ HD CATH INSERTED BY DR. THOMAS, ASSISTED ON BEDSIDE. PT TOLERATED WELL.
--- NOTE | 2020-04-12 13:03 | NUR ---
DIRECTOR LEARNING SERVICES NOTES HYDRALAZINE DUE AT 1PM HELD DUE TO LOW DBP AND HR. 120/50. HR 57. PT ON SINUS RHYTHM YET BRADYCARDIC. WILL MONITOR
[2020-04-12] MEDS: HYDROCODONE/APAP 5/325MG TABLET PO PRN (13:05)
[2020-04-12 16:00] VITALS: BP 107/65
--- NOTE | 2020-04-12 16:50 | NUR ---
VIROLOGIST NOTES BP 107/65, HR 56. HELD HYDRALAZINE DUE TO LOW HR. SINUS RHYTHM. WILL CONTINUE TO MONITOR
[2020-04-12] MEDS: FLUOCINONIDE 0.05% CREAM 60 GM TUBE TP SCH (16:52)
[2020-04-12] MEDS: CLOTRIMAZOLE 1% 15 GM TUBE TP SCH (16:52)
--- NOTE | 2020-04-12 19:30 | NUR ---
BED MACHINE OPERATOR CLOSING NOTES PT AAOX3, WITH EPISODES OF CONFUSION AND FORGETFULNESS. NO PRESENCE OF ACUTE RESPIRATORY DISTRESS, TOLERATING ROOM AIR. NO BM TODAY, ANURIC. HD STARTED ORDERED, SITE AT RIGHT IJ HD CATH. DENIES PAIN AND DISCOMFORT, NORCO ORDERED EFFECTIVE. NO NEW SKIN BREAKDOWN, BLE OFFLOAD FOR WOUND AND EDEMA. IV SITE AT LEFT AC #20 RUNNING AND ALEA MIDLINE NS AT 75 ML/HR, PATENT IN FLUSHING, SITE HAS NO S/X OF INFILTRATION. CALL LIGHT WITHIN REACH. SRX2 UP FOR SAFETY. TELE MONITOR SHOWS SINUS BRADYCARDIA. CALL LIGHT WITHIN REACH, BED IN LOW LOCKED POSITION, SRX2 UP FOR SAFETY. ENDORSED PT CARE TO NEXT SHIFT.
--- NOTE | 2020-04-12 19:31 | NUR ---
FILLER LEAF CUTTER LONG OPENING NOTES PATIENT RECEIVED RESTING IN BED COMFORTABLY; A/OX3; NON-COMPLIANT; PATIENT CONTINUOUSLY REMOVES TELE MONITOR; PATIENT CURRENTLY UNDERGOING HD, WITH HD NURSE AT BEDSIDE; BREATHING EVEN AND UNLABORED; NO SOB NOTED; ALEA MIDLINE INTACT, RIJ FOR HD PRESENT; SAFETY PRECAUTIONS IMPLEMENTED; BED LOCKED IN LOW POSITION; SIDE RAILSX2; CALL LIGHT WITHIN REACH; WILL CONT TO MONITOR
[2020-04-12 20:00] VITALS: BP 123/47
[2020-04-12 20:35] VITALS: BP 123/47
[2020-04-12] MEDS: ATORVASTATIN 10 MG TABLET PO SCH (21:11)
[2020-04-12] MEDS: FAMOTIDINE (20 MG) 20 MG TABLET PO SCH (21:11)
[2020-04-12] MEDS: *INSULIN REGULAR(HUMULIN R)HUM 100 UNIT/ML VIAL SQ PRN (21:28)
[2020-04-12] MEDS: INSULIN GLARGINE, 100 UNIT/ML CARTRIDGE SQ SCH (22:00)
[2020-04-13] VITALS: BP 120/68
[2020-04-13] MEDS: diphenhydrAMINE HCL 50 MG/ML VIAL IV PRN ×4 (00:36→21:09)
[2020-04-13 04:00] VITALS: BP 101/54
[2020-04-13] MEDS: methylPREDNISolone SOD SUCC 125 MG/2ML VIAL IV SCH ×4 (05:36→23:58)
[2020-04-13] MEDS: BLOOD SUGAR DIAGNOSTIC 1 EACH STRIP VI SCH ×4 (06:12→21:19)
[2020-04-13] MEDS: INSULIN REGULAR, HUMAN 100 UNIT/ML 3 ML VIAL SQ PRN ×3 (06:13→17:27)
--- NOTE | 2020-04-13 06:33 | NUR ---
SSN/SSBN ASSISTANT NAVIGATOR CLOSING NOTES PATIENT RESTING IN BED COMFORTABLY; A/OX2-3, NON-COMPLIANT PATIENT; PATIENT CONTINUOUSLY REMOVING TELE MONITOR THROUGHOUT NIGHT; ALEA MIDLINE INTACT AND PATENT; RIJ FOR HD PRESENT; PATIENT KEEPS ON ATTEMPTING TO REMOVE TAPE; PATIENT REPORTED SHE ONLY TAKES THE CORNERS OUT D/T ITCHINESS; RIJ DRESSING SECURED; KIM ADAMES AWARE; PER KIM ADAMES OKAY FOR BILATERAL SOFT WRIST RESTRAINTS IF NEEDED; WILL INFORM DAY SHIFT; ALL NEEDS RENDERED; SAFETY PRECAUTIONS IMPLEMENTED; BED LOCKED IN LOW POSITION; SIDE RAILSX2; CALL LIGHT WITHIN REACH; WILL ENDORSE REAL TO ONCOMING NURSE
--- NOTE | 2020-04-13 07:33 | NUR ---
RN NOTES RECEIVED PATIENT RESTING IN BED COMFORTABLY IN MODERATE HIGH BACK REST; A/OX2-3, PER LIFE INSURANCE SALES AGENT, NON-COMPLIANT PATIENT;CONTINUOUSLY REMOVING TELE MONITOR THROUGHOUT NIGHT; ALEA MIDLINE INTACT AND PATENT; RIJ FOR HD PRESENT; SAFETY PRECAUTIONS IN PLACE; BED LOCKED IN LOW POSITION; SIDE RAILSX2; CALL LIGHT WITHIN REACH; WILL CONTINUE TO MONITOR.
[2020-04-13 08:00] VITALS: BP 121/64
[2020-04-13] MEDS: FUROSEMIDE 40 MG/4 ML VIAL IV SCH (08:42)
[2020-04-13] MEDS: OXYBUTYNIN CHLORIDE ER 5 MG TAB PO SCH (08:42)
[2020-04-13] MEDS: CLOPIDOGREL BISULFATE 75 MG TABLET PO SCH (08:42)
[2020-04-13] MEDS: MULTIVITAMINS,THERAGRAN 1 UDTAB TABLET PO SCH (08:42)
[2020-04-13] MEDS: DOCUSATE SODIUM 100 MG CAPSULE PO SCH ×2 (08:42→16:33)
[2020-04-13] MEDS: CHOLECALCIFEROL (VITAMIN D 3) 400 UNIT TABLET PO SCH (08:42)
[2020-04-13] MEDS: FAMOTIDINE (20 MG) 20 MG TABLET PO SCH ×2 (08:42→20:58)
[2020-04-13] MEDS: ASPIRIN 81 MG TAB.CHEW PO SCH (08:42)
[2020-04-13] MEDS: AMLODIPINE BESYLATE 10 MG TABLET PO SCH (08:58)
[2020-04-13] MEDS: hydrALAZINE HCL 50 MG TABLET PO SCH ×3 (08:58→16:33)
[2020-04-13] MEDS: ATENOLOL 25 MG TABLET PO SCH (08:59)
[2020-04-13] MEDS: LINEZOLID 600 MG TABLET PO SCH ×2 (09:01→20:58)
[2020-04-13] MEDS: FLUOCINONIDE 0.05% CREAM 60 GM TUBE TP SCH ×2 (09:03→16:35)
[2020-04-13] MEDS: CLOTRIMAZOLE 1% 15 GM TUBE TP SCH ×2 (09:04→16:35)
[2020-04-13 09:33] LABS: CALCIUM, SERUM 7.8 mg/dL (8.5-10.1); CARBON DIOXIDE 24 mmol/L (21-32); CHLORIDE 97 mmol/L (98-107); GLUCOSE 221 mg/dL (74-106); POTASSIUM 3.7 mmol/L (3.5-5.1); SODIUM SERUM 133 mmol/L (136-145); UREA NITROGEN, BLOOD 57 mg/dL (7-18)
[2020-04-13 09:39] LABS: ALANINE AMINOTRANSFERASE 29 U/L (12-78); ALBUMIN 2.4 g/dL (3.4-5.0); ALKALINE PHOSPHATASE 60 U/L (46-116); ASPARTATE AMINOTRANSFERASE 19 U/L (15-37); BILIRUBIN,TOTAL 0.5 mg/dL (0.2-1.0); MAGNESIUM 2.1 mg/dL (1.8-2.4); PHOSPHORUS 4.3 mg/dL (2.5-4.9); TOTAL PROTEIN, SERUM 5.9 g/dL (6.4-8.2)
[2020-04-13 09:43] LABS: EOSINOPHILS % (AUTO) 0.5 % (0.0-6.0); HEMATOCRIT 24 % (33-45); HEMOGLOBIN 8.3 g/dL (11.5-14.8); LYMPHOCYTES # (AUTO) 0.1 /CMM (0.8-4.8); LYMPHOCYTES % (AUTO) 2.2 % (20.0-44.0); MEAN CORPUSCULAR HGB CONC 35 g/dl (31.0-36.0); MEAN CORPUSCULAR VOLUME 90 fL (82-100); MONOCYTES # (AUTO) 0.2 /CMM (0.1-1.30); MONOCYTES % (AUTO) 4.5 % (2.0-12.0); NEUTROPHILS # (AUTO) 4.2 /CMM (1.8-8.9); NEUTROPHILS % (AUTO) 92.8 % (43.0-81.0); PLATELET COUNT (AUTO) 290 /CMM (150-450); RED BLOOD CELL COUNT(AUTO) 2.62 MIL/uL (4.0-5.2); WHITE BLOOD COUNT (AUTO) 4.6 K/uL (4.3-11.0)
[2020-04-13 16:00] VITALS: BP 124/61
--- NOTE | 2020-04-13 16:31 | NUR ---
RN NOTES DIALYSIS NURSE ON UNIT, WILL DIALYZE THE PATIENT AT BEDSIDE, NO SIGNS OF DISTRESS NOTED AT THIS TIME. WILL CONTINUE TO MONITOR.
--- NOTE | 2020-04-13 18:41 | NUR ---
RN NOTES PATIENT RESTING IN BED COMFORTABLY IN MODERATE HIGH BACK REST; A/OX2-3, REFUSED TELE MONITOR, AWARE; ALEA MIDLINE INTACT AND PATENT; RIJ FOR HD PRESENT; CURRENTLY DOING DIALYSIS AT BEDSIDE, SAFETY PRECAUTIONS IN PLACE; BED LOCKED IN LOW POSITION; SIDE RAILSX2; CALL LIGHT WITHIN REACH; WILL ENDORSE TO NIGHT SHIT NURSE FOR REAL.
--- NOTE | 2020-04-13 19:50 | NUR ---
BIOLOGICAL ENGINEER OPENING NOTES RECEIVED PATIENT IN BED ALERT AND ORIENTED X 2-3 WITH EPISODES OF CONFUSION. VERBALLY RESPONSIVE AND ABLE TO FOLLOW DIRECTIONS. BREATHING REGULAR AND UNLABORED ON ROOM AIR. LEFT UPPER ARM MIDLINE INTACT AND PATENT, FLUSHING WELL WITH NO BLEEDING OR S/S OF INFILTRATION NOTED. S/P HEMODIALYSIS WITH NO OUTPUT TAKEN, RIGHT IJ INTACT WITH NO ACTIVE BLEEDING SEEN. DENIES SUICIDAL IDEATION OR PAIN/DISCOMFORT AT THIS TIME. BED LOW AND LOCKED ON SEMI FOWLERS POSITION. CALL LIGHT IN REACH. WILL CONTINUE TO MONITOR.
[2020-04-13 20:00] VITALS: BP 135/56
--- NOTE | 2020-04-13 20:20 | NUR ---
MUSEUM REGISTRAR NOTES STILL REFUSED CARDIAC MONITORING, RISK AND BENEFITS EXPLAINED.
[2020-04-13] MEDS: ATORVASTATIN 10 MG TABLET PO SCH (21:09)
[2020-04-13] MEDS: INSULIN GLARGINE, 100 UNIT/ML CARTRIDGE SQ SCH (21:21)
[2020-04-13] MEDS: *INSULIN REGULAR(HUMULIN R)HUM 100 UNIT/ML VIAL SQ PRN (21:22)
[2020-04-14] VITALS (7 sets, daily range): BP systolic 119–134; BP diastolic 57–84
[2020-04-14] MEDS: ONDANSETRON HCL/PF 4 MG/2 ML VIAL IVP PRN (02:35)
--- NOTE | 2020-04-14 02:35 | NUR ---
FITNESS ATTENDANT NOTES COMPLAINED OF NAUSEA, ZOFRAN 4MG GIVEN VIA IVP. NON-PHARMACOLOGICAL INTERVENTIONS PROVIDED. WILL CONTINUE TO MONITOR.
[2020-04-14] MEDS: methylPREDNISolone SOD SUCC 125 MG/2ML VIAL IV SCH ×3 (05:29→17:07)
[2020-04-14] MEDS: BLOOD SUGAR DIAGNOSTIC 1 EACH STRIP VI SCH ×4 (06:36→21:09)
[2020-04-14] MEDS: INSULIN REGULAR, HUMAN 100 UNIT/ML 3 ML VIAL SQ PRN ×3 (06:38→17:28)
--- NOTE | 2020-04-14 06:45 | NUR ---
CODING SUPPORT SPECIALIST OPENING NOTES RECEIVED PATIENT IN BED ALERT AND ORIENTED X 2-3. AFEBRILE WITH NO S/S OF DISTRESS OBSERVED. LEFT UPPER ARM MIDLINE PATENT AND FLUSHING WELL. RIGHT IJ INTACT WITH NO ACTIVE BLEEDING NOTED. NO COMPLAINTS OF PAIN/DISCOMFORT AT THIS TIME. BED LOW AND LOCKED ON SEMI FOWLERS POSITION. CALL LIGHT IN REACH. WILL ENDORSE TO MORNING SHIFT FOR REAL. Addendum: 04/14/20 at 0652 by YVETTE BOGGS RN CODING SUPPORT SPECIALIST CLOSING NOTES
--- NOTE | 2020-04-14 07:10 | NUR ---
DATA WAREHOUSE CONSULTANT NOTES REFUSED IV FLUIDS INFUSION, RISK AND BENEFITS EXPLAINED. WILL ENDORSE ACCORDINGLY TO MORNING SHIFT.
--- NOTE | 2020-04-14 07:26 | NUR ---
DIRECT SERVICE PROFESSIONAL OPENING NOTES RECEIVED PATIENT IN BED, ASLEEP. PATIENT ON OXYGEN THERAPY AT 2LPM; BREATHING IS EVEN AND UNLABORED; NO SOB NOTED AT THIS TIME. TELE BOX REMOVED BY PATIENT ACCORDING TO EDUCATION ADVISER NURSE; PATIENT DOES NOT WANT IT ON. NO S/S OF PAIN SUCH FACIAL GRIMACING, MOANING OR GUARDING. ALEA MIDLINE PRESENT AND INTACT. R IJ HD CATH PRESENT WELL. PATIENT REFUSES FLUIDS. SAFETY PRECAUTIONS IN PLACE; BED IN LOW POSITION AND LOCKED, RAILS UP X2, CALL LIGHT WITHIN REACH. WILL CONTINUE TO MONITOR PATIENT.
[2020-04-14 08:51] LABS: HEMATOCRIT 22 % (33-45); HEMOGLOBIN 7.5 g/dL (11.5-14.8); LYMPHOCYTES # (AUTO) 0.1 /CMM (0.8-4.8); LYMPHOCYTES % (AUTO) 2.6 % (20.0-44.0); MEAN CORPUSCULAR HGB CONC 35 g/dl (31.0-36.0); MEAN CORPUSCULAR VOLUME 90 fL (82-100); MONOCYTES # (AUTO) 0.1 /CMM (0.1-1.30); MONOCYTES % (AUTO) 1.5 % (2.0-12.0); NEUTROPHILS # (AUTO) 4.8 /CMM (1.8-8.9); NEUTROPHILS % (AUTO) 95.9 % (43.0-81.0); PLATELET COUNT (AUTO) 248 /CMM (150-450)
[2020-04-14] MEDS: AMLODIPINE BESYLATE 10 MG TABLET PO SCH (08:56)
[2020-04-14] MEDS: ATENOLOL 25 MG TABLET PO SCH (08:56)
[2020-04-14] MEDS: hydrALAZINE HCL 50 MG TABLET PO SCH ×3 (08:56→16:47)
[2020-04-14] MEDS: FLUOCINONIDE 0.05% CREAM 60 GM TUBE TP SCH ×2 (08:57→16:21)
[2020-04-14] MEDS: CLOTRIMAZOLE 1% 15 GM TUBE TP SCH ×2 (08:57→16:21)
[2020-04-14 09:00] LABS: SODIUM SERUM 135 mmol/L (136-145)
[2020-04-14] MEDS: FUROSEMIDE 40 MG/4 ML VIAL IV SCH (09:00)
[2020-04-14 09:01] LABS: ALANINE AMINOTRANSFERASE 25 U/L (12-78); ALBUMIN 2.2 g/dL (3.4-5.0); ALKALINE PHOSPHATASE 61 U/L (46-116); ASPARTATE AMINOTRANSFERASE 13 U/L (15-37); BILIRUBIN,TOTAL 0.6 mg/dL (0.2-1.0); CALCIUM, SERUM 8.1 mg/dL (8.5-10.1); CARBON DIOXIDE 26 mmol/L (21-32); CHLORIDE 100 mmol/L (98-107); CREATININE 3.1 mg/dL (0.6-1.3); GLUCOSE 254 mg/dL (74-106); PHOSPHORUS 4.3 mg/dL (2.5-4.9); POTASSIUM 4.2 mmol/L (3.5-5.1); TOTAL PROTEIN, SERUM 5.6 g/dL (6.4-8.2); UREA NITROGEN, BLOOD 47 mg/dL (7-18)
[2020-04-14] MEDS: diphenhydrAMINE HCL 50 MG/ML VIAL IV PRN (09:08)
[2020-04-14] MEDS: CHOLECALCIFEROL (VITAMIN D 3) 400 UNIT TABLET PO SCH (09:11)
[2020-04-14] MEDS: MULTIVITAMINS,THERAGRAN 1 UDTAB TABLET PO SCH (09:11)
[2020-04-14] MEDS: ASPIRIN 81 MG TAB.CHEW PO SCH (09:11)
[2020-04-14] MEDS: FAMOTIDINE (20 MG) 20 MG TABLET PO SCH ×2 (09:11→20:42)
[2020-04-14] MEDS: CLOPIDOGREL BISULFATE 75 MG TABLET PO SCH (09:11)
[2020-04-14] MEDS: DOCUSATE SODIUM 100 MG CAPSULE PO SCH ×2 (09:11→17:07)
[2020-04-14] MEDS: OXYBUTYNIN CHLORIDE ER 5 MG TAB PO SCH (09:11)
--- NOTE | 2020-04-14 09:34 | NUR ---
MECHANICAL MAINTENANCE NOTES PATIENT STARTED DIALYSIS. BP MEDS HELD WITH LASIX. PATIENT ALSO REFUSES LEADS TO BE PLACED AT THIS TIME; SAID AFTER DIALYSIS. WILL CONTINUE TO MONITOR.
[2020-04-14] MEDS: LINEZOLID 600 MG TABLET PO SCH ×2 (12:04→20:42)
--- NOTE | 2020-04-14 16:52 | NUR ---
Image Assembler consult requested by patient. SW met with the patient at bedside while patient dressing on foot was changed. Patient wanted to inform this SW that the patient has no method of being transported back home and she would like to go home. This SW explained that the doctor would need to provide medical clearance for the patient to return home. SW to inform case management about this patient. Patient also provided this SW with patient's [facility] caregiver Doris to call and ask about transportation method. SW to follow up with patient [facility] caregiver.
--- NOTE | 2020-04-14 18:55 | NUR ---
SEWER HAND CLOSING NOTES PATIENT IN BED, AWAKE, A/O X3, NEEDY. PATIENT ON OXYGEN THERAPY AT 2LPM; BREATHING IS EVEN AND UNLABORED; NO SOB NOTED DURING THE SHIFT. TELE BOX REMOVED BY PATIENT AND REFUSES TO PLACE IT BACK; PATIENT DOES NOT WANT IT ON. NO PAIN REPORTED DURING THE SHIFT. ALEA MIDLINE PRESENT AND INTACT. R IJ HD CATH PRESENT WELL WITH HD DONE TODAY AND AN OUTPUT OF 1L. DRESSING CHANGE DONE. ALL NEEDS ATTENDED TO THROUGHOUT THE SHIFT. PATIENT REFUSES FLUIDS. SAFETY PRECAUTIONS IN PLACE; BED IN LOW POSITION AND LOCKED, RAILS UP X2, CALL LIGHT WITHIN REACH. WILL ENDORSE TO DERRICK BUILDER NURSE.
--- NOTE | 2020-04-14 19:30 | NUR ---
LIFE SKILLS WORKER OPENING NOTES RECEIVED PATIENT IN BED ALERT AND ORIENTED X 3. VERBALLY RESPONSIVE AND ABLE TO FOLLOW DIRECTIONS. BREATHING REGULAR AND UNLABORED ON OXYGEN AT 2L/MIN VIA NASAL CANNULA. LEFT UPPER ARM MIDLINE INTACT AND PATENT, FLUSHING WELL WITH NO BLEEDING OR S/S OF INFILTRATION NOTED. S/P HEMODIALYSIS WITH 1L OUTPUT, RIGHT IJ INTACT WITH NO ACTIVE BLEEDING SEEN. DENIES SUICIDAL IDEATION OR PAIN/DISCOMFORT AT THIS TIME. BED LOW AND LOCKED ON SEMI FOWLERS POSITION. CALL LIGHT IN REACH. WILL CONTINUE TO MONITOR.
[2020-04-14] MEDS: ATORVASTATIN 10 MG TABLET PO SCH (21:04)
[2020-04-14] MEDS: INSULIN GLARGINE, 100 UNIT/ML CARTRIDGE SQ SCH (21:10)
[2020-04-14] MEDS: *INSULIN REGULAR(HUMULIN R)HUM 100 UNIT/ML VIAL SQ PRN (21:11)
--- NOTE | 2020-04-14 23:00 | NUR ---
PUBLICATIONS PRODUCTION SUPERVISOR NOTES WOUND TREATMENT PROVIDED. OBSERVED WITH MULTIPLE OPEN WOUNDS ON BOTH LOWER EXTREMITIES PER PATIENT SHE SCRATCH IT. PHOTO TAKEN ATTACHED TO CHART. DENIES PAIN/DISCOMFORT AT THIS TIME. OFFERED MEDICATION FOR ITCHING BUT REFUSED. WILL CONTINUE TO MONITOR.
[2020-04-15] VITALS: BP 131/84
[2020-04-15] MEDS: methylPREDNISolone SOD SUCC 125 MG/2ML VIAL IV SCH ×5 (00:03→23:19)
[2020-04-15 04:00] VITALS: BP 127/69
[2020-04-15] MEDS: ONDANSETRON HCL/PF 4 MG/2 ML VIAL IVP PRN (05:15)
[2020-04-15] MEDS: BLOOD SUGAR DIAGNOSTIC 1 EACH STRIP VI SCH ×4 (06:30→21:30)
[2020-04-15] MEDS: INSULIN REGULAR, HUMAN 100 UNIT/ML 3 ML VIAL SQ PRN ×2 (06:31→12:07)
--- NOTE | 2020-04-15 06:40 | NUR ---
ROUSTABOUT CREW CLOSING NOTES RECEIVED PATIENT IN BED ALERT AND ORIENTED X 3. AFEBRILE WITH NO S/S OF DISTRESS OBSERVED. LEFT UPPER ARM MIDLINE PATENT AND FLUSHING WELL. RIGHT IJ INTACT WITH NO ACTIVE BLEEDING NOTED. NO COMPLAINTS OF PAIN/DISCOMFORT AT THIS TIME. BED LOW AND LOCKED ON SEMI FOWLERS POSITION. CALL LIGHT IN REACH. WILL ENDORSE TO MORNING SHIFT FOR REAL.
[2020-04-15 08:00] VITALS: BP 149/65
[2020-04-15] MEDS: DOCUSATE SODIUM 100 MG CAPSULE PO SCH ×2 (08:41→17:00)
[2020-04-15] MEDS: CHOLECALCIFEROL (VITAMIN D 3) 400 UNIT TABLET PO SCH (08:47)
[2020-04-15] MEDS: ATENOLOL 25 MG TABLET PO SCH (08:47)
[2020-04-15] MEDS: ASPIRIN 81 MG TAB.CHEW PO SCH (08:48)
[2020-04-15] MEDS: CLOTRIMAZOLE 1% 15 GM TUBE TP SCH ×2 (08:48→17:00)
[2020-04-15] MEDS: hydrALAZINE HCL 50 MG TABLET PO SCH ×3 (08:48→17:00)
[2020-04-15] MEDS: FAMOTIDINE (20 MG) 20 MG TABLET PO SCH ×2 (08:48→21:13)
[2020-04-15] MEDS: AMLODIPINE BESYLATE 10 MG TABLET PO SCH (08:48)
[2020-04-15] MEDS: FUROSEMIDE 40 MG/4 ML VIAL IV SCH (08:48)
[2020-04-15] MEDS: CLOPIDOGREL BISULFATE 75 MG TABLET PO SCH (08:48)
[2020-04-15] MEDS: MULTIVITAMINS,THERAGRAN 1 UDTAB TABLET PO SCH (08:48)
[2020-04-15] MEDS: LINEZOLID 600 MG TABLET PO SCH ×2 (08:48→21:13)
[2020-04-15] MEDS: FLUOCINONIDE 0.05% CREAM 60 GM TUBE TP SCH ×2 (08:48→17:00)
[2020-04-15] MEDS: OXYBUTYNIN CHLORIDE ER 5 MG TAB PO SCH (08:48)
[2020-04-15] MEDS ORDERED: diphenhydrAMINE HCL 25 MG CAPSULE PO ONE (10:00)
--- NOTE | 2020-04-15 10:35 | NUR ---
rn notes patient removes the taping on her IJ access. MD aware. Patient aware of the danger of the line not being taped.
--- NOTE | 2020-04-15 13:55 | NUR ---
pt removes dressing to her feet and continues to scratch it. Educated patient the importance of not touching or scratching her wounds, unsuccessful. Patient does not want her BP taken or her medications taken. States that she wants to go home AMA but wants to talk to her provider first.
[2020-04-15 16:00] VITALS: BP 134/85
--- NOTE | 2020-04-15 18:01 | NUR ---
rn notes Patient remains with room air, she removes o2 nasal cannula. Refuses tele monitor placement. Multiple small wounds on her legs. Patient scratches them consistently, even when told to stop. Benadryl given. R IJ cath present, ALEA dinh. Patient removes tape and covering for her IJ. explained to her the benefit of leaving them on, but she states that she is not comfortable with them. MD aware. Plan is to have chair time for her HD. Susan aware of plans. Patient refuses medication to be given to her, she eats whatever she wants. Refuses blood sugar checks. multiple times refusing everything.
--- NOTE | 2020-04-15 19:36 | NUR ---
MS RN OPENING NOTES PATIENT AWAKE IN BED. A/OX3. ON RA; NO S/S OF ACUTE RESPIRATORY DISTRESS; BREATHING IS EVEN AND UNLABORED; NO C/O PAIN. HD CATH PRESENT ON RIGHT IJ, DRESSING CHANGED. MIDLINE LINE PRESENT ON LEFT UPPER ARM, INTACT & PATENT, HEP LOCKED. 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 SAFETY MEASURES IN PLACE AND PATIENT'S NEEDS MET. BED LOCKED, HOB ELEVATED, SIDE RAILS X2, CALL LIGHT WITHIN REACH. WILL CONTINUE TO MONITOR.
[2020-04-15 20:00] VITALS: BP 145/56
[2020-04-15] MEDS: ATORVASTATIN 10 MG TABLET PO SCH (21:13)
[2020-04-15] MEDS: INSULIN GLARGINE, 100 UNIT/ML CARTRIDGE SQ SCH (21:32)
[2020-04-15] MEDS: *INSULIN REGULAR(HUMULIN R)HUM 100 UNIT/ML VIAL SQ PRN (21:33)
--- NOTE | 2020-04-15 23:36 | NUR ---
MS RN NOTES DRESSING FOR HD CATH ON RIGHT UPPER IJ CHANGED MULTIPLE TIMES, HOWEVER PATIENT KEEPS REMOVING DRESSING. EXPLAINED TO PATIENT TO NOT TOUCH DRESSING HOWEVER PATIENT CONTINUES TO REMOVE DRESSING.
[2020-04-16 04:00] VITALS: BP 146/74
[2020-04-16] MEDS: methylPREDNISolone SOD SUCC 125 MG/2ML VIAL IV SCH ×3 (06:52→17:15)
[2020-04-16] MEDS: BLOOD SUGAR DIAGNOSTIC 1 EACH STRIP VI SCH ×4 (07:03→21:38)
[2020-04-16] MEDS: INSULIN REGULAR, HUMAN 100 UNIT/ML 3 ML VIAL SQ PRN ×4 (07:03→21:29)
--- NOTE | 2020-04-16 07:30 | NUR ---
MS/RN OPENING NOTE Received patient resting in bed, A&O x 3. No complaints of pain/discomfort at this time. Breathing even and non-labored on RA, no SOB noted. No cardiac distress noted. ALEA midline access noted, patent and intact, and flushing well. R IJ HD cath in place, dressing constantly removed by patient, MD aware. Sensation from all peripheral extremities intact. Bed locked to its lowest position, side rails x 2 up, call light in hand. Will continue with current medical management.
--- NOTE | 2020-04-16 07:32 | NUR ---
MS RN CLOSING NOTES PATIENT AWAKE IN BED. A/OX3. ON RA; NO S/S OF ACUTE RESPIRATORY DISTRESS; BREATHING IS EVEN AND UNLABORED; NO C/O PAIN. PATIENT REMOVED RIGHT IJ HD CATH DRESSING; DAY SHIFT RN MADE AWARE. MIDLINE LINE PRESENT ON LEFT UPPER ARM, INTACT & PATENT, HEP LOCKED. PATIENT'S BLOOD GLUCOSE 155; PATIENT REFUSED 2 UNIT INSULIN COVERAGE. SAFETY MEASURES IN PLACE AND PATIENT'S NEEDS MET. BED LOCKED, HOB ELEVATED, SIDE RAILS X2, CALL LIGHT WITHIN REACH. ENDORSED TO DAY SHIFT RN PLAN OF CARE.
--- NOTE | 2020-04-16 08:00 | NUR ---
MS/RN NOTE Patient refused to have vital signs taken, explained its risks and benefits, patient still insists on refusing.
--- NOTE | 2020-04-16 08:30 | NUR ---
MS/RN NOTE Patient refused to take blood pressure medications, non-administered. Instructed patient the importance of checking blood pressure and compliance with medications. Patient verbalizes understanding but insists to refuse.
[2020-04-16] MEDS: hydrALAZINE HCL 50 MG TABLET PO SCH ×3 (08:43→17:15)
[2020-04-16] MEDS: AMLODIPINE BESYLATE 10 MG TABLET PO SCH (08:43)
[2020-04-16] MEDS: ATENOLOL 25 MG TABLET PO SCH (08:44)
[2020-04-16] MEDS: CLOTRIMAZOLE 1% 15 GM TUBE TP SCH ×2 (08:45→17:15)
[2020-04-16] MEDS: CLOPIDOGREL BISULFATE 75 MG TABLET PO SCH (08:46)
[2020-04-16] MEDS: LINEZOLID 600 MG TABLET PO SCH ×2 (08:47→21:27)
[2020-04-16] MEDS: ASPIRIN 81 MG TAB.CHEW PO SCH (08:48)
[2020-04-16] MEDS: DOCUSATE SODIUM 100 MG CAPSULE PO SCH ×2 (08:48→17:15)
[2020-04-16] MEDS: FAMOTIDINE (20 MG) 20 MG TABLET PO SCH ×2 (08:48→21:27)
[2020-04-16] MEDS: MULTIVITAMINS,THERAGRAN 1 UDTAB TABLET PO SCH (08:49)
[2020-04-16] MEDS: CHOLECALCIFEROL (VITAMIN D 3) 400 UNIT TABLET PO SCH (08:49)
[2020-04-16] MEDS: OXYBUTYNIN CHLORIDE ER 5 MG TAB PO SCH (08:49)
[2020-04-16] MEDS: FUROSEMIDE 40 MG/4 ML VIAL IV SCH (08:50)
[2020-04-16] MEDS: FLUOCINONIDE 0.05% CREAM 60 GM TUBE TP SCH ×2 (09:00→17:00)
[2020-04-16] MEDS: HYDROCODONE/APAP 5/325MG TABLET PO PRN ×2 (11:54→17:46)
--- NOTE | 2020-04-16 12:00 | NUR ---
MS/RN NOTE Patient refused twice for blood draw, explained its importance, risks, and benefits, patient still insists on refusing blood draw. Will attempt again later.
--- NOTE | 2020-04-16 12:03 | NUR ---
MS/RN NOTE BS check done, 168. Patient refused 3 units of insulin, explained its risks and benefits, but patient states "my blood sugar isn't that high, I'll go in a coma with that 3 units." Non-administered insulin. Will continue to monitor patient for any changes of condition.
[2020-04-16 16:00] VITALS: BP 162/68
--- NOTE | 2020-04-16 16:00 | NUR ---
MS/RN NOTES Abdominal bruising noted, photos taken and placed on chart. Patient is on clopidogrel, easily bruises on blood draw and injections, and scratches all around the body. Will continue to monitor for any changes of condition.
--- NOTE | 2020-04-16 16:00 | NUR ---
MS/RN NOTE Patient currently having hemodialysis, will continue to monitor.
--- NOTE | 2020-04-16 16:45 | NUR ---
MS/RN NOTE Patient finished hemodialysis, 1 L out. Will continue to monitor.
--- NOTE | 2020-04-16 19:00 | NUR ---
MS/RN CLOSING NOTE Patient resting in bed, A&O x 3. All needs met and attended to. No complaints of pain/discomfort at this time. Breathing even and non-labored on RA, no SOB noted. No cardiac distress noted. ALEA midline access noted, patent and intact, and flushing well. R IJ HD cath in place, dressing constantly removed by patient, MD aware. Dressing done on BLE. Sensation from all peripheral extremities intact. Fall precautions maintained. Will endorse to mini shifter nurse.
--- NOTE | 2020-04-16 19:35 | NUR ---
RN OPENING NOTES PATIENT RECEIVED RESTING IN BED A/O X3. STABLE ON RA WITH BREATHING EVEN AND UNLABORED, NO SOB NOTED. NO SIGNS OF ACUTE DISTRESS. NO COMPLAINTS OF PAIN OR DISCOMFORT. RIJ HD CATH NOTED AND IN PLACE. ALEA MIDLINE NOTED AND INTACT. SAFETY PRECAUTIONS IN PLACE WITH BED IN LOWEST POSITION, CALL LIGHT WITHIN REACH, BREAKS ON, SIDE RIALS UP. WILL CONTINUE TO MONITOR THROUGHOUT THE SHIFT.
[2020-04-16 20:34] LABS: HEMATOCRIT 23 % (33-45); HEMOGLOBIN 7.9 g/dL (11.5-14.8); LYMPHOCYTES # (AUTO) 0.1 /CMM (0.8-4.8); LYMPHOCYTES % (AUTO) 1.5 % (20.0-44.0); MEAN CORPUSCULAR HGB CONC 35 g/dl (31.0-36.0); MEAN CORPUSCULAR VOLUME 89 fL (82-100); MONOCYTES # (AUTO) 0.1 /CMM (0.1-1.30); MONOCYTES % (AUTO) 2.3 % (2.0-12.0); NEUTROPHILS # (AUTO) 5.6 /CMM (1.8-8.9); NEUTROPHILS % (AUTO) 96.2 % (43.0-81.0); PLATELET COUNT (AUTO) 277 /CMM (150-450); RED BLOOD CELL COUNT(AUTO) 2.57 MIL/uL (4.0-5.2); WHITE BLOOD COUNT (AUTO) 5.8 K/uL (4.3-11.0)
[2020-04-16 20:48] VITALS: BP 136/69
[2020-04-16 21:24] LABS: CALCIUM, SERUM 8.6 mg/dL (8.5-10.1); CARBON DIOXIDE 28 mmol/L (21-32); CHLORIDE 100 mmol/L (98-107); CREATININE 2.4 mg/dL (0.6-1.3); GLUCOSE 208 mg/dL (74-106); MAGNESIUM 1.9 mg/dL (1.8-2.4); POTASSIUM 4.2 mmol/L (3.5-5.1); SODIUM SERUM 136 mmol/L (136-145); UREA NITROGEN, BLOOD 42 mg/dL (7-18)
[2020-04-16] MEDS: ATORVASTATIN 10 MG TABLET PO SCH (21:27)
[2020-04-16] MEDS: INSULIN GLARGINE, 100 UNIT/ML CARTRIDGE SQ SCH (21:31)
--- NOTE | 2020-04-16 21:43 | NUR ---
RN NOTES RECEIVED CALL FROM DR THOMAS FOR PERMACATH PLACEMENT FOR PATIENT AT 1100. CONSENT COLLECTED AND SIGNED. ORDERED FOR PATIENT TO BE NPO BY MIDNIGHT ORDER LABS CMP, CBC, PT, PTT, INR. ORDERS CARRIED OUT.
[2020-04-16 22:21] LABS: BASOPHILS % (AUTO) 0.2 % (0.0-2.0); HEMATOCRIT 22 % (33-45); HEMOGLOBIN 7.6 g/dL (11.5-14.8); LYMPHOCYTES # (AUTO) 0.1 /CMM (0.8-4.8); LYMPHOCYTES % (AUTO) 2.3 % (20.0-44.0); MEAN CORPUSCULAR HGB CONC 34 g/dl (31.0-36.0); MEAN CORPUSCULAR VOLUME 89 fL (82-100); MONOCYTES # (AUTO) 0.1 /CMM (0.1-1.30); MONOCYTES % (AUTO) 2.3 % (2.0-12.0); NEUTROPHILS % (AUTO) 95.2 % (43.0-81.0); PLATELET COUNT (AUTO) 268 /CMM (150-450); RED BLOOD CELL COUNT(AUTO) 2.53 MIL/uL (4.0-5.2); WHITE BLOOD COUNT (AUTO) 5.2 K/uL (4.3-11.0)
[2020-04-16 22:35] LABS: ALANINE AMINOTRANSFERASE 28 U/L (12-78); ALBUMIN 2.8 g/dL (3.4-5.0); ALKALINE PHOSPHATASE 98 U/L (46-116); ASPARTATE AMINOTRANSFERASE 13 U/L (15-37); BILIRUBIN,TOTAL 1.2 mg/dL (0.2-1.0); CALCIUM, SERUM 8.7 mg/dL (8.5-10.1); CARBON DIOXIDE 25 mmol/L (21-32); CHLORIDE 101 mmol/L (98-107); CREATININE 2.4 mg/dL (0.6-1.3); GLUCOSE 236 mg/dL (74-106); POTASSIUM 4.2 mmol/L (3.5-5.1); SODIUM SERUM 136 mmol/L (136-145); TOTAL PROTEIN, SERUM 6.4 g/dL (6.4-8.2); UREA NITROGEN, BLOOD 41 mg/dL (7-18)
[2020-04-17] MEDS: methylPREDNISolone SOD SUCC 125 MG/2ML VIAL IV SCH ×5 (00:15→23:24)
[2020-04-17] MEDS: BLOOD SUGAR DIAGNOSTIC 1 EACH STRIP VI SCH ×4 (06:53→21:14)
--- NOTE | 2020-04-17 07:05 | NUR ---
RN CLOSING NOTED PATIENT IN BED RESTING, A/O X 3. ON 2L OF O2 WITH BREATHING EVEN AND UNLABORED, NO SOB NOTED. NO SIGNS OF ACUTE DISTRESS. RIJ HD CATH NOTED AND IN PLACE. ALEA MIDLINE NOTED AND IN PLACE. PATIENT KEPT NPO THROUGHOUT THE NIGHT. PATIENT REFUSED TO HAVE LINEN CHANGED. ALL OTHER NEEDS ATTENDED TO. SAFETY PRECAUTIONS IN PLACE WITH BED IN LOWEST POSITION, CALL LIGHT WITHIN REACH, BREAKS ON, SIDE RAILS UP. WILL ENDORSE TO ONCOMING SHIFT ABOUT REAL.
--- NOTE | 2020-04-17 07:21 | NUR ---
MS RN OPENING NOTES PATIENT RECEIVED AWAKE IN BED IN NO ACUTE SIGNS OF DISTRESS. A/O X3. ABLE TO MAKE NEEDS KNOWN, NO COMPLAINTS OF PAIN OR DISCOMFORT AT THIS TIME. ON SUPPLEMENTAL 02 VIA N/C @ 2LPM AT THIS TIME, BREATHING EVEN AND UNLABORED. RIJ HD CATH NOTED AND IN PLACE. ALEA MIDLINE INTACT AND PATENT. SAFETY PRECAUTIONS IN PLACE: BED IN LOWEST POSITION, CALL LIGHT WITHIN REACH, BREAKS ON, SIDE RIALS UP X2. WILL CONTINUE TO MONITOR PT ACCORDINGLY.
[2020-04-17 07:30] LABS: BASOPHILS % (AUTO) 0.1 % (0.0-2.0); HEMATOCRIT 24 % (33-45); HEMOGLOBIN 8.3 g/dL (11.5-14.8); LYMPHOCYTES # (AUTO) 0.3 /CMM (0.8-4.8); LYMPHOCYTES % (AUTO) 4.8 % (20.0-44.0); MEAN CORPUSCULAR HGB CONC 35 g/dl (31.0-36.0); MEAN CORPUSCULAR VOLUME 92 fL (82-100); MONOCYTES # (AUTO) 0.5 /CMM (0.1-1.30); MONOCYTES % (AUTO) 8.1 % (2.0-12.0); NEUTROPHILS # (AUTO) 5.9 /CMM (1.8-8.9); PLATELET COUNT (AUTO) 358 /CMM (150-450); WHITE BLOOD COUNT (AUTO) 6.8 K/uL (4.3-11.0)
[2020-04-17 07:51] LABS: ALANINE AMINOTRANSFERASE 30 U/L (12-78); ALBUMIN 3.3 g/dL (3.4-5.0); ALKALINE PHOSPHATASE 102 U/L (46-116); ASPARTATE AMINOTRANSFERASE 16 U/L (15-37); BILIRUBIN,TOTAL 1.5 mg/dL (0.2-1.0); CALCIUM, SERUM 9.2 mg/dL (8.5-10.1); CARBON DIOXIDE 26 mmol/L (21-32); CHLORIDE 99 mmol/L (98-107); CREATININE 2.6 mg/dL (0.6-1.3); GLUCOSE 236 mg/dL (74-106); PHOSPHORUS 3.4 mg/dL (2.5-4.9); POTASSIUM 3.7 mmol/L (3.5-5.1); SODIUM SERUM 137 mmol/L (136-145); TOTAL PROTEIN, SERUM 7.3 g/dL (6.4-8.2); UREA NITROGEN, BLOOD 44 mg/dL (7-18)
[2020-04-17] MEDS: ONDANSETRON HCL/PF 4 MG/2 ML VIAL IVP PRN (07:55)
[2020-04-17 08:00] VITALS: BP 157/76
--- NOTE | 2020-04-17 08:00 | NUR ---
RN NOTES PT C/O NAUSEA, PRN ZOFRAN 4MG/2ML IVP ADMINISTERED AT 0755. WILL CONTINUE TO MONITOR AND REASSESS PT.
[2020-04-17] MEDS: ASPIRIN 81 MG TAB.CHEW PO SCH (08:45)
[2020-04-17] MEDS: hydrALAZINE HCL 50 MG TABLET PO SCH ×3 (08:45→16:29)
[2020-04-17] MEDS: CLOPIDOGREL BISULFATE 75 MG TABLET PO SCH (08:46)
[2020-04-17] MEDS: DOCUSATE SODIUM 100 MG CAPSULE PO SCH ×2 (08:46→16:29)
[2020-04-17] MEDS: FAMOTIDINE (20 MG) 20 MG TABLET PO SCH ×2 (08:46→21:06)
[2020-04-17] MEDS: OXYBUTYNIN CHLORIDE ER 5 MG TAB PO SCH (08:46)
[2020-04-17] MEDS: AMLODIPINE BESYLATE 10 MG TABLET PO SCH (08:46)
[2020-04-17] MEDS: CHOLECALCIFEROL (VITAMIN D 3) 400 UNIT TABLET PO SCH (08:47)
[2020-04-17] MEDS: ATENOLOL 25 MG TABLET PO SCH (08:47)
[2020-04-17] MEDS: MULTIVITAMINS,THERAGRAN 1 UDTAB TABLET PO SCH (08:47)
[2020-04-17] MEDS: FUROSEMIDE 40 MG/4 ML VIAL IV SCH (08:53)
[2020-04-17] MEDS: FLUOCINONIDE 0.05% CREAM 60 GM TUBE TP SCH ×2 (08:54→16:31)
[2020-04-17] MEDS: LINEZOLID 600 MG TABLET PO SCH ×2 (08:58→21:06)
[2020-04-17] MEDS: CLOTRIMAZOLE 1% 15 GM TUBE TP SCH ×2 (09:00→16:31)
--- NOTE | 2020-04-17 09:16 | NUR ---
RN NOTES PT FOR PERMA CATH PLACEMENT TODAY AND PT IS NPO. PER O.R. STACIE MCGOWAN SHE ASKED ANESTHESIOLOGIST JACE IF IT'S OK TO GIVE ZYVOX 600MG TAB PO WITH SMALL SIP OF WATER AND HE SAID YES.
--- NOTE | 2020-04-17 10:56 | NUR ---
RN NOTES PT WHEELED TO SURGERY FOR PERMACATH PLACEMENT BY Adeel JEFFERSON AND Adeel SANDERS
[2020-04-17 11:50] LABS: ABG BASE EXCESS 1.9 mmol/L; ABG OXYGEN SATURATION 82.2 % (92.0-98.5); ABG PCO2 36.3 mmHg (35.0-45.0); ABG PH 7.467 (7.350-7.450); AaDO2 60.3 mmHg; COHb 1.7 % (0.5-1.5); MetHb 0.2 % (0.0-1.5); O2Hb 80.6 % (94.0-97.0); SITE, ABG Left Femoral; VENT MODE, BG room air
--- NOTE | 2020-04-17 12:28 | NUR ---
RN NOTES PT RETURNED TO UNIT ACCOMPANIED BY O.RIsaiah MCGOWAN. AWAKE, A/O X3. VERBALLY RESPONSIVE. SHE'S AWARE THAT PERMACATH PLACEMENT IS CANCELLED TODAY. . PT'S PERMACATHETER PLACEMENT CANCELLED TODAY BY DR MOORE AND ANESTHESIOLOGIST DR MCCORMICK BECAUSE PT IS NOT STABLE TODAY MANIFESTED BY ABNORMAL ABG AND CXR RESULTS. SHIRLEY ROTHMAN MADE AWARE. PT MAINTAINED ON 02 VIA N/C AT 2LPM, BREATHING EVEN AND UNLABORED, NO SOB NOTED. WILL CONTINUE TO CLOSELY MONITOR PT.
[2020-04-17 16:00] VITALS: BP 145/79
[2020-04-17] MEDS: diphenhydrAMINE HCL/ZINC ACET CREAM 28.3 GM TUBE TP PRN (16:06)
--- NOTE | 2020-04-17 16:07 | NUR ---
RN NOTES PT C/O ITCHING FROM THE BACK, PRN BENADRYL CREAM APPLIED ORDERED. WILL CONTINUE TO MONITOR.
[2020-04-17] MEDS: INSULIN REGULAR, HUMAN 100 UNIT/ML 3 ML VIAL SQ PRN (17:00)
--- NOTE | 2020-04-17 17:15 | NUR ---
RN NOTES PT C/O MILD SOB, HEALTH INSURANCE ASSESSOR STEPHAN MADE AWARE AND ORDERED ALBUTEROL 2.5MG/3ML Q6HRS PRN NEBULIZATION AND WAS ADMINISTERED BY RT WITH RELIEF. WILL CONTINUE TO MONITOR
[2020-04-17] MEDS: MEROPENEM 500 MG in IV NS 0.9% 50 ML IV SCH (18:32)
--- NOTE | 2020-04-17 18:36 | NUR ---
MS RN CLOSING NOTES PATIENT IN BED AWAKE AND RESTING AT MODERATE HIGH BACKREST POSITION. A/O X3. ABLE TO MAKE NEEDS KNOWN. ON 02 VIA N/C @ 2LPM, BREATHING EVEN AND UNLABORED. RIJ HD CATH NOTED AND IN PLACE. ALEA MIDLINE INTACT, PATENT AND FLUSHES WELL, IV ATB OF MERREM 500MG Q12HRS FOR PNA STARTED AND INFUSING WELL AT THIS TIME. ALL NEEDS AND CARE ATTENDED WELL. SAFETY PRECAUTIONS KEPT IN PLACE: BED LOCKED AND IN LOW POSITION, SIDE RAILS UP X2 AND CALL LIGHT W/IN REACH. WILL ENDORSE TO CAMP HOUSEKEEPER NURSE FOR REAL.
--- NOTE | 2020-04-17 19:30 | NUR ---
MS/RN OPENING NOTES RECEIVED PATIENT IS BED RESTING. PATIENT IS ALERT AND ORIENTED X 3. PATIENT IS IN NO SIGNS OF DISTRESS. NO SIGNS OF SOB OR RESPIRATORY DISTRESS NOTED. PATIENT HAS IV ACCESS LEFT UA MIDLINE IN PLACE FLUSHING WELL AND RIJ HD CATH IN PLACE. PATIENT PLACED IN COMFORTABLE POSITION. SAFETY MEASURES ARE IN PLACE, BED IS IN THE LOWEST POSITION, SIDE RAILS UP X 2. CALL LIGHT IS WITHIN REACH. WILL CONTINUE TO MONITOR THROUGHOUT SHIFT.
[2020-04-17 20:36] VITALS: BP 133/59
[2020-04-17] MEDS: ATORVASTATIN 10 MG TABLET PO SCH (21:06)
[2020-04-17] MEDS: ALBUTEROL FS 2.5 MG/3 ML VIAL.NEB NEB PRN (21:14)
[2020-04-17] MEDS: INSULIN GLARGINE, 100 UNIT/ML CARTRIDGE SQ SCH (21:19)
[2020-04-17] MEDS: *INSULIN REGULAR(HUMULIN R)HUM 100 UNIT/ML VIAL SQ PRN (21:20)
[2020-04-18] MEDS: methylPREDNISolone SOD SUCC 125 MG/2ML VIAL IV SCH ×4 (05:41→23:41)
[2020-04-18] MEDS: MEROPENEM 500 MG in IV NS 0.9% 50 ML IV SCH ×2 (05:41→18:33)
[2020-04-18] MEDS: BLOOD SUGAR DIAGNOSTIC 1 EACH STRIP VI SCH ×4 (06:11→21:58)
[2020-04-18] MEDS: ACETAMINOPHEN 325 MG TABLET PO PRN (06:13)
--- NOTE | 2020-04-18 06:20 | NUR ---
MS/RN NOTES PATIENT STATED GENERALIZED BODY ACHE/PAIN. GIVEN TYLENOL 650 MG PO. V/S ARE STABLE. WILL CONTINUE TO MONITOR.
--- NOTE | 2020-04-18 06:35 | NUR ---
MS/RN CLOSING NOTES PATIENT RESTING IN BED. PATIENT IS ALERT AND ORIENTED X 3. PATIENT STATES NO PAIN AT THIS TIME. NO SIGNS OF SOB OR RESPIRATORY DISTRESS NOTED.PATIENT TOLERATING 3L OF OXYGEN WELL, STATING AT 94%. PATIENT HAS IV ACCESS LEFT UA MIDLINE #18G IN PLACE FLUSHING WELL AND RIJ HD CATH IN PLACE. PATIENT PLACED IN COMFORTABLE POSITION. ALL PATIENTS NEEDS HAVE BEEN MET DURING SHIFT. SAFETY MEASURES ARE IN PLACE, BED IS IN THE LOWEST POSITION, SIDE RAILS UP X 2. CALL LIGHT IS WITHIN REACH. WILL ENDORSE CARE TO DAY SHIFT NURSE.
[2020-04-18 06:38] LABS: BASOPHILS % (AUTO) 0.1 % (0.0-2.0); HEMATOCRIT 21 % (33-45); HEMOGLOBIN 7.3 g/dL (11.5-14.8); LYMPHOCYTES # (AUTO) 0.1 /CMM (0.8-4.8); LYMPHOCYTES % (AUTO) 2.3 % (20.0-44.0); MEAN CORPUSCULAR HGB CONC 35 g/dl (31.0-36.0); MEAN CORPUSCULAR VOLUME 95 fL (82-100); MONOCYTES # (AUTO) 0.8 /CMM (0.1-1.30); MONOCYTES % (AUTO) 11.9 % (2.0-12.0); NEUTROPHILS # (AUTO) 5.6 /CMM (1.8-8.9); NEUTROPHILS % (AUTO) 85.7 % (43.0-81.0); PLATELET COUNT (AUTO) 280 /CMM (150-450); WHITE BLOOD COUNT (AUTO) 6.5 K/uL (4.3-11.0)
[2020-04-18 06:53] LABS: CARBON DIOXIDE 25 mmol/L (21-32); CHLORIDE 101 mmol/L (98-107); CREATININE 2.6 mg/dL (0.6-1.3); GLUCOSE 173 mg/dL (74-106); POTASSIUM 4.3 mmol/L (3.5-5.1); SODIUM SERUM 137 mmol/L (136-145); UREA NITROGEN, BLOOD 51 mg/dL (7-18)
--- NOTE | 2020-04-18 07:17 | NUR ---
MS RN OPENING NOTES PATIENT RECEIVED AWAKE IN BED IN NO ACUTE SIGNS OF DISTRESS. A/O X3. ABLE TO MAKE NEEDS KNOWN, NO COMPLAINTS OF PAIN OR DISCOMFORT AT THIS TIME. ON 02 VIA N/C @ 3LPM AT THIS TIME, BREATHING EVEN AND UNLABORED. RIJ HD CATH NOTED AND IN PLACE. ALEA MIDLINE INTACT AND PATENT. SAFETY PRECAUTIONS IN PLACE: BED IN LOWEST POSITION, CALL LIGHT WITHIN REACH, BREAKS ON, SIDE RIALS UP X2. WILL CONTINUE TO MONITOR PT ACCORDINGLY.
[2020-04-18 08:00] VITALS: BP 145/86
[2020-04-18] MEDS: ASPIRIN 81 MG TAB.CHEW PO SCH (08:36)
[2020-04-18] MEDS: OXYBUTYNIN CHLORIDE ER 5 MG TAB PO SCH (08:36)
[2020-04-18] MEDS: DOCUSATE SODIUM 100 MG CAPSULE PO SCH ×2 (08:36→17:03)
[2020-04-18] MEDS: LINEZOLID 600 MG TABLET PO SCH ×2 (08:36→21:57)
[2020-04-18] MEDS: FUROSEMIDE 40 MG/4 ML VIAL IV SCH (08:37)
[2020-04-18] MEDS: CLOPIDOGREL BISULFATE 75 MG TABLET PO SCH (08:37)
[2020-04-18] MEDS: FAMOTIDINE (20 MG) 20 MG TABLET PO SCH ×2 (08:37→21:56)
[2020-04-18] MEDS: ATENOLOL 25 MG TABLET PO SCH (08:37)
[2020-04-18] MEDS: CHOLECALCIFEROL (VITAMIN D 3) 400 UNIT TABLET PO SCH (08:37)
[2020-04-18] MEDS: hydrALAZINE HCL 50 MG TABLET PO SCH ×3 (08:37→17:04)
[2020-04-18] MEDS: AMLODIPINE BESYLATE 10 MG TABLET PO SCH (08:38)
[2020-04-18] MEDS: CLOTRIMAZOLE 1% 15 GM TUBE TP SCH ×2 (08:38→17:05)
[2020-04-18] MEDS: MULTIVITAMINS,THERAGRAN 1 UDTAB TABLET PO SCH (08:38)
[2020-04-18] MEDS: FLUOCINONIDE 0.05% CREAM 60 GM TUBE TP SCH ×2 (08:38→17:06)
[2020-04-18 10:43] LABS: NEUTROPHILS % (MANUAL) 83 (42-76)
[2020-04-18 10:44] LABS: BAND % (MANUAL) 2 % (0.0-5.0); LYMPHOCYTES % (MANUAL) 5 % (16-48); MONOCYTES % (MANUAL) 10 % (0-11.0)
--- NOTE | 2020-04-18 11:40 | NUR ---
RN NOTES RECEIVED CALL FROM DR MOORE AND SAID THAT HE WILL NOT DO PERMACATH PLACEMENT TODAY. HE SAID THAT IF PROCEDURE WILL BE DONE, IT WILL BE NEXT WEEK AND THE EARLIEST DATE IS 04/21/20.
[2020-04-18] MEDS ORDERED: BUMETANIDE INJ 6 MG in IV NS 0.9% 36 ML IV ONE (12:00)
[2020-04-18] MEDS: INSULIN REGULAR, HUMAN 100 UNIT/ML 3 ML VIAL SQ PRN ×2 (12:03→17:05)
--- NOTE | 2020-04-18 12:38 | NUR ---
RN NOTES PT SEEN, EVALUATED AND EXPLAINED PLAN OF CARE BY DR THOMPSON. HE SAME ORDERED TO DO HD TODAY AND BUMEX 6MG IV X1 BAG. WILL CONTINUE TO MONITOR PT.
--- NOTE | 2020-04-18 14:44 | NUR ---
RN NOTES PT NOTED TRYING TO PULL DOUBLE LUMEN RIGHT IJ. ONE OF THE LINE NOTED UNCLAMPED AND WITH SMALL HOLE NOTED AND LEAKING SMALL AMOUNT OF BLOOD. DRY DRESSING APPLIED AND CLAMPED THE LINE THAT WAS LEAKING. SITE CLEAN AND DRESSING CHANGED, NO FURTHER BLEEDING NOTED AT THIS TIME. PT WITH NO C/O PAIN AT SITE, NO C/O LIGHTHEADEDNESS OR ANY DISCOMFORTS. ADVISED PT NOT TO PULL HER IJ AGAIN, SAME EDUCATED ON COMPLICATIONS/RISKS OF PULLING OUT HER IJ. PT VERBALIZED UNDERSTANDING.
[2020-04-18 16:00] VITALS: BP 128/72
--- NOTE | 2020-04-18 16:37 | NUR ---
RN NOTES DIALYSIS NURSE JESSICA CAME TO DO HEMODIALYSIS TO PT, INFORMED HIM THAT ONE OF THE RIGHT IJ TUBE HAS HOLE, HE INFORMED DR THOMPSON AND HE CANCELLED THE HD. WILL CONTINUE TO MONITOR PT.
[2020-04-18] MEDS: ALBUTEROL FS 2.5 MG/3 ML VIAL.NEB NEB PRN (18:18)
--- NOTE | 2020-04-18 18:55 | NUR ---
MS RN CLOSING NOTES PATIENT IN BED AWAKE, A/O X3. ABLE TO MAKE NEEDS KNOWN. ON 02 VIA N/C @ 3LPM, BREATHING EVEN AND UNLABORED, NO SOB NOTED DURING THE DAY. RIJ HD CATH IN PLACE, NO BLEEDING AT SITE NOTED AT THIS TIME, DRESSING IN PLACE. ALEA MIDLINE INTACT AND PATENT IV ATB OF MERREM 500MG INFUSING WELL AT THIS TIME. ALL NEEDS AND CARE ATTENDED WELL. SAFETY PRECAUTIONS KEPT IN PLACE: BED LOCKED AND IN LOW POSITION, SIDE RAILS UP X2 AND CALL LIGHT W/IN REACH. WILL ENDORSE TO DETASSELING CREW SUPERVISOR NURSE FOR REAL.
--- NOTE | 2020-04-18 19:01 | NUR ---
MS RN OPENING NOTES: RECEIVED PATIENT IN BED, AWAKE. A/O X3. NO S/S OF DISTRESS NOTED. NO COMPLAIN OF PAIN. CALL LIGHT WITHIN REACH. BED ALARM ON. BED IN LOWEST AND LOCKED POSITION. WITH RIGHT IJ CATHETER, INTACT, WITH LITTLE BLOOD, NO ACTIVE BLEEDING, TEGADERM DRESSING INTACT, REINFORCED WITH TEGADERM DRESSING. REMINDED THE PATIENT NOT TO TOUCH AND REMOVE THE DRESSING, PATIENT VERBALIZED UNDERSTANDING. WITH 02 AT 3L/MIN NASAL CANNULA ON,PATIENT TOOK IT OFF OCCASIONALLY. NOTICED THAT THE DRESSINGS ON BILATERAL FEET WERE LOOSE, REMINDED THE PATIENT NOT TO REMOVE THEM,PATIENT VERBALIZED UNDERSTANDING.
[2020-04-18 20:00] VITALS: BP 128/84
--- NOTE | 2020-04-18 20:52 | NUR ---
PATIENT IS FORGETFUL. PATIENT TOUCHES HER RIGHT IJ, REMINDED AGAIN. BED ALARM WENT OFF, PATIENT STOOD UP, DID NOT CALL, PATIENT CLAIMED SHE CALL. ASSISTED TO THE BEDSIDE COMMODE, VOIDED. ASSISTED BACK TO THE BED, BED ALARM ON,CALL LIGHT WITHIN REACH.
--- NOTE | 2020-04-18 20:56 | NUR ---
BILATERAL FEET DRESSINGS REMOVED BY PATIENT.
[2020-04-18] MEDS: *INSULIN REGULAR(HUMULIN R)HUM 100 UNIT/ML VIAL SQ PRN (21:55)
[2020-04-18] MEDS: INSULIN GLARGINE, 100 UNIT/ML CARTRIDGE SQ SCH (21:55)
[2020-04-18] MEDS: ATORVASTATIN 10 MG TABLET PO SCH (21:57)
[2020-04-19] MEDS: ALBUTEROL FS 2.5 MG/3 ML VIAL.NEB NEB PRN (04:14)
[2020-04-19] MEDS: methylPREDNISolone SOD SUCC 125 MG/2ML VIAL IV SCH ×4 (05:25→23:56)
[2020-04-19] MEDS: MEROPENEM 500 MG in IV NS 0.9% 50 ML IV SCH ×2 (05:25→17:51)
[2020-04-19 06:45] LABS: CALCIUM, SERUM 9.2 mg/dL (8.5-10.1); CARBON DIOXIDE 26 mmol/L (21-32); CHLORIDE 98 mmol/L (98-107); CREATININE 2.8 mg/dL (0.6-1.3); GLUCOSE 252 mg/dL (74-106); MAGNESIUM 1.8 mg/dL (1.8-2.4); PHOSPHORUS 3.7 mg/dL (2.5-4.9); POTASSIUM 4.4 mmol/L (3.5-5.1); SODIUM SERUM 136 mmol/L (136-145); UREA NITROGEN, BLOOD 59 mg/dL (7-18)
[2020-04-19] MEDS: INSULIN REGULAR, HUMAN 100 UNIT/ML 3 ML VIAL SQ PRN ×4 (06:56→22:35)
[2020-04-19 06:58] LABS: BASOPHILS % (AUTO) 0.1 % (0.0-2.0); HEMATOCRIT 23 % (33-45); HEMOGLOBIN 7.9 g/dL (11.5-14.8); LYMPHOCYTES # (AUTO) 0.3 /CMM (0.8-4.8); LYMPHOCYTES % (AUTO) 4.5 % (20.0-44.0); MEAN CORPUSCULAR HGB CONC 35 g/dl (31.0-36.0); MEAN CORPUSCULAR VOLUME 93 fL (82-100); MONOCYTES # (AUTO) 0.6 /CMM (0.1-1.30); MONOCYTES % (AUTO) 9.9 % (2.0-12.0); NEUTROPHILS # (AUTO) 4.8 /CMM (1.8-8.9); NEUTROPHILS % (AUTO) 85.5 % (43.0-81.0); PLATELET COUNT (AUTO) 312 /CMM (150-450); RED BLOOD CELL COUNT(AUTO) 2.44 MIL/uL (4.0-5.2); WHITE BLOOD COUNT (AUTO) 5.6 K/uL (4.3-11.0)
[2020-04-19] MEDS: BLOOD SUGAR DIAGNOSTIC 1 EACH STRIP VI SCH ×4 (07:03→21:34)
--- NOTE | 2020-04-19 07:30 | NUR ---
RN MS NOTES PT IN BED, AWAKE, ALERT AND VERBALLY RESPONSIVE, DENIES PAIN, NOT IN DISTRESS, PT PICKING HER OLD HD CATH AT RIGHT IJ, NO BLEEDING NOTED, DRESSING CHANGED, CALL LIGHT WITHIN REACH, NEEDS ATTENDED.
--- NOTE | 2020-04-19 07:52 | NUR ---
MS RN CLOSING NOTES: PATIENT IN BED, AWAKE. NO S/S OF DISTRESS NOTED. NO COMPLAIN OF PAIN. CALL LIGHT WITHIN REACH. BED IN LOWEST AND LOCKED POSITION.WOUND TREATMENTS DONE AND DRESSINGS CHANGED ON BOTH FEET. NO BLEEDING NOTED ON THE RIGHT IJ.
[2020-04-19 08:00] VITALS: BP 163/77
[2020-04-19] MEDS: MULTIVITAMINS,THERAGRAN 1 UDTAB TABLET PO SCH (09:59)
[2020-04-19] MEDS: ASPIRIN 81 MG TAB.CHEW PO SCH (09:59)
[2020-04-19] MEDS: CLOPIDOGREL BISULFATE 75 MG TABLET PO SCH (10:00)
[2020-04-19] MEDS: ATENOLOL 25 MG TABLET PO SCH (10:00)
[2020-04-19] MEDS: DOCUSATE SODIUM 100 MG CAPSULE PO SCH ×2 (10:00→16:49)
[2020-04-19] MEDS: FUROSEMIDE 40 MG/4 ML VIAL IV SCH ×3 (10:00→16:49)
[2020-04-19] MEDS: CHOLECALCIFEROL (VITAMIN D 3) 400 UNIT TABLET PO SCH (10:00)
[2020-04-19] MEDS: OXYBUTYNIN CHLORIDE ER 5 MG TAB PO SCH (10:00)
[2020-04-19] MEDS: LINEZOLID 600 MG TABLET PO SCH ×2 (10:00→21:33)
[2020-04-19] MEDS: FAMOTIDINE (20 MG) 20 MG TABLET PO SCH ×2 (10:00→21:33)
[2020-04-19] MEDS: hydrALAZINE HCL 50 MG TABLET PO SCH ×3 (10:01→16:49)
[2020-04-19] MEDS: AMLODIPINE BESYLATE 10 MG TABLET PO SCH (10:01)
[2020-04-19] MEDS: CLOTRIMAZOLE 1% 15 GM TUBE TP SCH ×2 (10:10→16:59)
[2020-04-19] MEDS: FLUOCINONIDE 0.05% CREAM 60 GM TUBE TP SCH ×2 (10:10→16:59)
[2020-04-19 11:22] LABS: LYMPHOCYTES % (MANUAL) 4 % (16-48); MONOCYTES % (MANUAL) 11 % (0-11.0); NEUTROPHILS % (MANUAL) 85 (42-76)
[2020-04-19 16:00] VITALS: BP 139/51
--- NOTE | 2020-04-19 19:00 | NUR ---
RN MS NOTES PT IN BED, AWAKE, ALERT AND ORIENTED, NO COMPLAINT OF PAIN OR ANY DISCOMFORT, ABLE TO AMBULATE TO THE BATHROOM WITH STEADY GAIT, NEEDS ATTENDED, SEEN BY DR. ROTHMAN AND DR. REVELES TODAY, PLAN OF CARE DISCUSSED WITH PT, VERBALIZED UNDERSTANDING.
--- NOTE | 2020-04-19 19:30 | NUR ---
RN NOTE RECEIVED PATIENT IN BED, AO X 3, IN NO S/SX OF ACUTE DISTRESS AT THIS TIME. PATIENT'S BREATHING IS EVEN AND UNLABORED, ON 3LPM SUPPLEMENTAL OXYGEN, TOLERATING WELL, SATURATING AT 95%, HR IS 62. NOTED ALEA MIDLINE, PATENT AND FLUSHING WELL, AND AND R IJ HD CATH , NO S/S OF INFECTION NOTED. PATIENT IS AMBULATORY WITH MINIMAL ASSISTANCE. SAFETY MEASURES IMPLEMENTED PER PROTOCOL. HEAD OF BED ELEVATED. BED IS LOCKED, IN LOWEST POSITION AND SIDE RAILS UP. CALL LIGHT WITHIN REACH OF THE PATIENT. WILL CONTINUE TO MONITOR AND REASSESS FOR ANY CHANGES.
[2020-04-19 20:00] VITALS: BP 136/94
[2020-04-19] MEDS: ATORVASTATIN 10 MG TABLET PO SCH (21:34)
[2020-04-19] MEDS: INSULIN GLARGINE, 100 UNIT/ML CARTRIDGE SQ SCH (22:34)
--- NOTE | 2020-04-20 04:00 | NUR ---
RN NOTE PATIENT REFUSED WOUND DRESSING CHANGE. EXPLAINED IMPORTANCE OF KEEPING WOUND CLEAN AND FOLLOWING WOUND TREATMENT. PATIENT'S DECISION STANDS.
[2020-04-20] MEDS: methylPREDNISolone SOD SUCC 125 MG/2ML VIAL IV SCH ×3 (06:28→17:02)
[2020-04-20] MEDS: MEROPENEM 500 MG in IV NS 0.9% 50 ML IV SCH ×2 (06:41→17:03)
[2020-04-20] MEDS: BLOOD SUGAR DIAGNOSTIC 1 EACH STRIP VI SCH ×4 (07:31→22:08)
[2020-04-20] MEDS: INSULIN REGULAR, HUMAN 100 UNIT/ML 3 ML VIAL SQ PRN ×2 (07:32→17:05)
--- NOTE | 2020-04-20 07:50 | NUR ---
MS/RN Opening note Patient received from head of design. A/O X2, vital signs within normal range for patient, no fever noted. Right IJ HDX catheter noted, dressing intact. Midline 18g to left upper arm noted, flushing well with normal saline. Plan for possible surgery tomorrow for permanent HDX catheter placement, no order as of this time. Safety measures in place, side rails X3 in upright position, bed in low setting, brakes locked. Call light within reach, will continue to monitor and ensure safety.
[2020-04-20] MEDS: FUROSEMIDE 40 MG/4 ML VIAL IV SCH ×2 (08:46→17:02)
[2020-04-20] MEDS: ASPIRIN 81 MG TAB.CHEW PO SCH (08:46)
[2020-04-20] MEDS: hydrALAZINE HCL 50 MG TABLET PO SCH ×3 (08:46→17:05)
[2020-04-20] MEDS: DOCUSATE SODIUM 100 MG CAPSULE PO SCH ×2 (08:47→17:03)
[2020-04-20] MEDS: OXYBUTYNIN CHLORIDE ER 5 MG TAB PO SCH (08:47)
[2020-04-20] MEDS: ATENOLOL 25 MG TABLET PO SCH (08:47)
[2020-04-20] MEDS: FAMOTIDINE (20 MG) 20 MG TABLET PO SCH ×2 (08:47→21:53)
[2020-04-20] MEDS: AMLODIPINE BESYLATE 10 MG TABLET PO SCH (08:47)
[2020-04-20] MEDS: CLOPIDOGREL BISULFATE 75 MG TABLET PO SCH (08:47)
[2020-04-20] MEDS: LINEZOLID 600 MG TABLET PO SCH ×2 (08:47→21:54)
[2020-04-20] MEDS: MULTIVITAMINS,THERAGRAN 1 UDTAB TABLET PO SCH (08:47)
[2020-04-20] MEDS: CHOLECALCIFEROL (VITAMIN D 3) 400 UNIT TABLET PO SCH (08:47)
[2020-04-20] MEDS: CLOTRIMAZOLE 1% 15 GM TUBE TP SCH ×2 (08:48→17:11)
[2020-04-20] MEDS: FLUOCINONIDE 0.05% CREAM 60 GM TUBE TP SCH ×2 (08:48→17:12)
[2020-04-20] MEDS: MUPIROCIN OINT 2% 22 GM TUBE NS SCH ×2 (08:49→21:55)
--- NOTE | 2020-04-20 09:00 | NUR ---
MS/RN Refusing medication Patient refusing all medications scheduled for 0900. Educated as to the importance of taking all medications but still refusing, will notify MD.
--- NOTE | 2020-04-20 09:30 | NUR ---
MS/RN S/B [place] ELECTRONIC TEST TECHNICIAN Seen by ELECTRONIC TEST TECHNICIAN - patient explained to in depth the importance of having blood drawn and allowing CXR to be taken. Explaind the need to closely monitor BUN and creatinine to ascertain the need for HDX. Patient stated understanding and now in agreement. Will notify lab.
[2020-04-20 10:35] LABS: BASOPHILS % (AUTO) 0.5 % (0.0-2.0); EOSINOPHILS % (AUTO) 0.3 % (0.0-6.0); HEMATOCRIT 25 % (33-45); HEMOGLOBIN 8.6 g/dL (11.5-14.8); LYMPHOCYTES # (AUTO) 0.2 /CMM (0.8-4.8); LYMPHOCYTES % (AUTO) 2.6 % (20.0-44.0); MEAN CORPUSCULAR HGB CONC 34 g/dl (31.0-36.0); MEAN CORPUSCULAR VOLUME 93 fL (82-100); MONOCYTES # (AUTO) 0.5 /CMM (0.1-1.30); MONOCYTES % (AUTO) 5.7 % (2.0-12.0); NEUTROPHILS % (AUTO) 90.9 % (43.0-81.0); PLATELET COUNT (AUTO) 326 /CMM (150-450); WHITE BLOOD COUNT (AUTO) 8.8 K/uL (4.3-11.0)
[2020-04-20 10:46] LABS: CALCIUM, SERUM 9.2 mg/dL (8.5-10.1); CARBON DIOXIDE 30 mmol/L (21-32); CHLORIDE 98 mmol/L (98-107); CREATININE 2.8 mg/dL (0.6-1.3); GLUCOSE 129 mg/dL (74-106); MAGNESIUM 1.7 mg/dL (1.8-2.4); PHOSPHORUS 3.3 mg/dL (2.5-4.9); POTASSIUM 3.8 mmol/L (3.5-5.1); SODIUM SERUM 136 mmol/L (136-145); UREA NITROGEN, BLOOD 65 mg/dL (7-18)
--- NOTE | 2020-04-20 11:00 | NUR ---
MS/RN Labs Morning labs reviewed: -WBC 8.8 -H&H 8.6/25 -BUN 65 -Creat 2.8 CXR shows bilateral lower lung infiltrates and small effusions are improving.
--- NOTE | 2020-04-20 11:30 | NUR ---
MS/RN Blood sugar Blood sugar at 1130 149, coverage administered as ordered.
[2020-04-20] MEDS: MAGNESIUM OXIDE 400 MG TABLET PO ONE ×2 (11:32→12:49)
--- NOTE | 2020-04-20 12:19 | NUR ---
MS/RN Dressing Dressing to bilateral lower extremities changed as ordered.
[2020-04-20 12:30] VITALS: BP 154/57
[2020-04-20] MEDS: HYDROCODONE/APAP 5/325MG TABLET PO PRN (15:07)
[2020-04-20 16:00] VITALS: BP 149/51
--- NOTE | 2020-04-20 17:33 | NUR ---
MS/RN Blood sugar Blood sugar at 1630 229, insulin coverage administered as per sliding scale.
--- NOTE | 2020-04-20 18:20 | NUR ---
MS/RN End note Patient remains in stable condition, continues to require a lot of reassurance regarding condition and plan of care. Will endorse to night time nanny.
--- NOTE | 2020-04-20 19:32 | NUR ---
MS RN OPENING NOTES PATIENT SLEEPING, EASY TO AWAKEN. A/OX2-3. ON RA; NO S/S OF ACUTE RESPIRATORY DISTRESS; BREATHING IS EVEN AND UNLABORED. NO C/O PAIN AT THIS TIME. HD CATH PRESENT ON RIGHT IJ; DRESSING REMOVED BY PATIENT; PER DAY SHIFT RN PATIENT CONTINUES TO REMOVE DRESSING. MIDLINE PRESENT ON LEFT UPPER ARM, INTACT & PATENT, HEP LOCKED. 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 SAFETY MEASURES IN PLACE AND PATIENT'S NEEDS MET. BED LOCKED, SIDE RAILS X2, CALL LIGHT WITHIN REACH. WILL CONTINUE TO MONITOR.
[2020-04-20 20:00] VITALS: BP 127/44
[2020-04-20 20:35] VITALS: BP 127/44
--- NOTE | 2020-04-20 21:04 | NUR ---
MS RN NOTES RECEIVED PHONE CALL FROM DR. THOMAS; RECEIVED ORDERS TO PLACE PATIENT NPO AFTER MIDNIGHT FOR POSSIBLE PERMACATH INSERTION TOMORROW MORNING. CONSENTS FOR PROCEDURE SIGNED AND PLACED IN CHART.
[2020-04-20] MEDS: ATORVASTATIN 10 MG TABLET PO SCH (21:53)
[2020-04-20] MEDS: INSULIN GLARGINE, 100 UNIT/ML CARTRIDGE SQ SCH (22:10)
[2020-04-20] MEDS: *INSULIN REGULAR(HUMULIN R)HUM 100 UNIT/ML VIAL SQ PRN (22:11)
[2020-04-20] MEDS: diphenhydrAMINE HCL 50 MG/ML VIAL IV PRN (22:13)
--- NOTE | 2020-04-20 22:36 | NUR ---
MS RN NOTES PATIENT REMOVED DRESSING FROM HD CATH; EXPLAINED TO PATIENT TO NOT KEEP TOUCHING DRESSING/HD CATHETER. REINFORCED DRESSING. WILL CONTINUE TO MONITOR.
[2020-04-21] MEDS: methylPREDNISolone SOD SUCC 125 MG/2ML VIAL IV SCH ×4 (00:32→17:19)
[2020-04-21] MEDS: MEROPENEM 500 MG in IV NS 0.9% 50 ML IV SCH ×2 (06:08→17:34)
[2020-04-21] MEDS: BLOOD SUGAR DIAGNOSTIC 1 EACH STRIP VI SCH ×3 (06:33→16:50)
[2020-04-21 07:11] LABS: BASOPHILS % (AUTO) 0.1 % (0.0-2.0); EOSINOPHILS % (AUTO) 0.1 % (0.0-6.0); HEMATOCRIT 25 % (33-45); HEMOGLOBIN 8.6 g/dL (11.5-14.8); LYMPHOCYTES # (AUTO) 0.2 /CMM (0.8-4.8); LYMPHOCYTES % (AUTO) 1.6 % (20.0-44.0); MEAN CORPUSCULAR HGB CONC 34 g/dl (31.0-36.0); MEAN CORPUSCULAR VOLUME 94 fL (82-100); MONOCYTES # (AUTO) 0.4 /CMM (0.1-1.30); MONOCYTES % (AUTO) 4.1 % (2.0-12.0); NEUTROPHILS # (AUTO) 9.4 /CMM (1.8-8.9); NEUTROPHILS % (AUTO) 94.1 % (43.0-81.0); PLATELET COUNT (AUTO) 302 /CMM (150-450); RED BLOOD CELL COUNT(AUTO) 2.67 MIL/uL (4.0-5.2); WHITE BLOOD COUNT (AUTO) 9.9 K/uL (4.3-11.0)
--- NOTE | 2020-04-21 07:14 | NUR ---
MS RN CLOSING NOTES PATIENT SLEEPING. A/OX2-3. ON RA; NO S/S OF ACUTE RESPIRATORY DISTRESS; BREATHING IS EVEN AND UNLABORED. NO S/S OF PAIN NOTED. HD CATH ON RIGHT IJ; DRESSING INTACT. MIDLINE PRESENT ON LEFT UPPER ARM, INTACT & PATENT, WITH NS RUNNING TKO. PATIENT CURRENTLY NPO FOR PERMACATH PROCEDURE. SAFETY MEASURES IN PLACE AND PATIENT'S NEEDS MET. BED LOCKED, SIDE RAILS X2, CALL LIGHT WITHIN REACH. ENDORSED TO DAY SHIFT RN PLAN OF CARE.
--- NOTE | 2020-04-21 07:20 | NUR ---
MS/RN OPENING NOTE PATIENT RECEIVED FROM FUNNEL COATER. PATIENT IN STABLE CONDITION. LAYING IN BED, NO ACUTE DISTRESS NOTED. PATIENT ON NPO STATUS. SAFETY PRECAUTION IN PLACE. PATIENT BED IS LOCKED IN LOWEST POSITION. CALL LIGHT WITHIN REACH WILL CONTINUE TO MONITOR AND ENSURE SAFETY.
--- NOTE | 2020-04-21 07:23 | NUR ---
MS RN OPENING NOTES RECEIVED PT AWAKE IN BED IN NO ACUTE SIGNS OF DISTRESS. A/O X3. ABLE TO MAKE NEEDS KNOWN, QUIET, [place] AND DENIES PAIN OR DISCOMFORTS AT THIS TIME. PT FOR PERMACATH PLACEMENT TODAY, NPO MAINTAINED. ON ROOM AIR, BREATHING EVEN AND UNLABORED. RIJ HD CATH IN PLACE BUT NOT FUNCTIONING, DRESSING IN PLACE. ALEA MIDLINE INTACT AND PATENT. SAFETY PRECAUTIONS IN PLACE: BED IN LOWEST POSITION, CALL LIGHT WITHIN REACH, BREAKS ON, SIDE RIALS UP X2. WILL CONTINUE TO MONITOR PT ACCORDINGLY.
[2020-04-21 07:45] LABS: ALANINE AMINOTRANSFERASE 25 U/L (12-78); ALBUMIN 2.8 g/dL (3.4-5.0); ALKALINE PHOSPHATASE 96 U/L (46-116); ASPARTATE AMINOTRANSFERASE 15 U/L (15-37); BILIRUBIN,TOTAL 1.5 mg/dL (0.2-1.0); CALCIUM, SERUM 8.6 mg/dL (8.5-10.1); CARBON DIOXIDE 27 mmol/L (21-32); CHLORIDE 101 mmol/L (98-107); CREATININE 2.5 mg/dL (0.6-1.3); GLUCOSE 114 mg/dL (74-106); MAGNESIUM 1.8 mg/dL (1.8-2.4); PHOSPHORUS 3.4 mg/dL (2.5-4.9); POTASSIUM 4.1 mmol/L (3.5-5.1); SODIUM SERUM 137 mmol/L (136-145); TOTAL PROTEIN, SERUM 5.9 g/dL (6.4-8.2); UREA NITROGEN, BLOOD 63 mg/dL (7-18)
[2020-04-21 08:00] VITALS: BP 142/65
[2020-04-21] MEDS: AMLODIPINE BESYLATE 10 MG TABLET PO SCH (09:00)
[2020-04-21] MEDS: hydrALAZINE HCL 50 MG TABLET PO SCH ×3 (09:00→16:13)
[2020-04-21] MEDS: CLOPIDOGREL BISULFATE 75 MG TABLET PO SCH (09:00)
[2020-04-21] MEDS: DOCUSATE SODIUM 100 MG CAPSULE PO SCH ×2 (09:00→16:17)
[2020-04-21] MEDS: ASPIRIN 81 MG TAB.CHEW PO SCH (09:00)
[2020-04-21] MEDS: ATENOLOL 25 MG TABLET PO SCH (09:00)
[2020-04-21] MEDS: CHOLECALCIFEROL (VITAMIN D 3) 400 UNIT TABLET PO SCH (09:00)
[2020-04-21] MEDS: OXYBUTYNIN CHLORIDE ER 5 MG TAB PO SCH (09:00)
[2020-04-21] MEDS: MULTIVITAMINS,THERAGRAN 1 UDTAB TABLET PO SCH (09:00)
[2020-04-21] MEDS: FAMOTIDINE (20 MG) 20 MG TABLET PO SCH (09:00)
[2020-04-21] MEDS: LINEZOLID 600 MG TABLET PO SCH (09:29)
[2020-04-21] MEDS: FUROSEMIDE 40 MG/4 ML VIAL IV SCH ×2 (09:29→16:18)
[2020-04-21] MEDS: CLOTRIMAZOLE 1% 15 GM TUBE TP SCH ×2 (09:41→16:13)
[2020-04-21] MEDS: MUPIROCIN OINT 2% 22 GM TUBE NS SCH (09:42)
[2020-04-21] MEDS: diphenhydrAMINE HCL/ZINC ACET CREAM 28.3 GM TUBE TP PRN (09:42)
[2020-04-21] MEDS: FLUOCINONIDE 0.05% CREAM 60 GM TUBE TP SCH ×2 (09:46→16:12)
[2020-04-21] MEDS: INSULIN REGULAR, HUMAN 100 UNIT/ML 3 ML VIAL SQ PRN ×2 (11:51→17:00)
[2020-04-21] MEDS ORDERED: DAPT500V2 IV (12:25)
[2020-04-21 15:15] LABS: *SPE A/G RATIO 0.9 (0.7-1.7); *SPE ALBUMIN 3.1 g/dL (2.9-4.4); *SPE ALPHA-1-GLOBULIN 0.4 g/dL (0.0-0.4); *SPE ALPHA-2-GLOBULIN 0.5 g/dL (0.4-1.0); *SPE GLOBULIN, TOTAL 3.3 g/dL (2.2-3.9); *SPE M-SPIKE Not Observed g/dL (Not Observed); *SPEGAMMA GLOBULIN 1.4 g/dL (0.4-1.8)
[2020-04-21 16:00] VITALS: BP_SYST 108; BP_SYST 119; BP_DIAS 54; BP_DIAS 73
[2020-04-21 16:13] VITALS: BP 109/54
--- NOTE | 2020-04-21 17:20 | NUR ---
RN NOTES JC KUMAR CAME AND REMOVED RIGHT IJ OF PT, NO ACTIVE BLEEDING NOTED. DRY DRESSING APPLIED TO SITE. WILL CONTINUE TO MONITOR.
--- NOTE | 2020-04-21 17:53 | NUR ---
RN NOTES SPOKE TO PT'S CAREGIVER JUJU LI AND SHE SAID THAT SHE WILL BE AT HOME TO MEET PT ON ARRIVAL FROM HOSPITAL. DHARA POLANCO INFORMED AND ARRANGED TRANSPORTATION AT 2100. WILL ENDORSE TO INCOMING SHIFT NURSE.
--- NOTE | 2020-04-21 18:41 | NUR ---
MS RN CLOSING NOTES PT AWAKE AND RESTING IN BED AT THIS TIMRE. A/O X3-4. ABLE TO MAKE NEEDS KNOWN. DRESSING ON RIGHT IJ SITE IN PLACE WITH NO ACTIVE BLEEDING NOTED. ON ROOM AIR, BREATHING EVEN AND UNLABORED, NO SOB NOTED DURING THE DAY.ALEA MIDLINE INTACT AND PATENT. SAFETY PRECAUTIONS IN PLACE: BED IN LOWEST POSITION, CALL LIGHT WITHIN REACH, BREAKS ON, SIDE RIALS UP X2. PT FOR DISCHARGE HOME TONIGHT, PICK-UP TIME IS 2100. WILL ENDORSE TO [employer] OFFICER NURSE FOR REAL.
--- NOTE | 2020-04-21 19:30 | NUR ---
MS/RN OPENING NOTES PATIENT IS AWAKE AND RESTING IN BED AT THIS TIME. A/O X3-4. DRESSING ON RIGHT IJ SITE IN PLACE WITH NO ACTIVE BLEEDING. PATIENT ON ROOM AIR, BREATHING EVEN AND UNLABORED, NO SOB NOTED. ALEA MIDLINE INTACT AND PATENT. SAFETY PRECAUTIONS IN PLACE: BED IN LOWEST POSITION, CALL LIGHT WITHIN REACH, BREAKS ON, SIDE RIALS UP X2. PT FOR DISCHARGE HOME TONIGHT, PICK-UP TIME IS 2100. WILL CONTINUE TO MONITOR.
--- NOTE | 2020-04-21 21:30 | NUR ---
MS/RN CLOSING NOTES PATIENT DISCHARGED HOME. PICKED UP BY 2 LOCAL DELIVERY DRIVER [facility]IA [facility]. PATIENT V/S ARE STABLE, PATIENT IN NO DISTRESS. PATIENT LEAVING WITH ALEA MIDLINE IN PLACE FOR 6 X WEEKS ABX TREATMENT VIA HOME HEALTH. PATIENT TRANSFERRED TO [facility] WITH NO INJURIES SUSTAINED. PATIENT KD ALL D/C FORMS. PATIENT HAS ALL BELONGINGS WITH HER.
== END 2020-04-21 21:30 | disposition home health service (06) | DRG 622 ==
LOC: ER 13:51 → MEDSG1 19:32 → ICU 04-07 13:46 → TELE1 04-09 18:41 → MEDSG1 04-10 07:58 → TELE1 04-10 12:36 → ICU 04-10 15:22 → TELE1 04-11 10:56 → TELE 04-11 11:09 → MED 04-15 11:40
PROVIDERS: ADMIT Nurse Practitioner Acute Care; ATTEND Nurse Practitioner Acute Care
PROC: 047K34Z Dilation of Right Femoral Artery with Drug-eluting Intraluminal Device, Percutaneous Approach (ICD-10-PCS; principal; 2020-04-07)
PROC: 047T3ZZ Dilation of Right Peroneal Artery, Percutaneous Approach (ICD-10-PCS; 2020-04-07)
PROC: B40GYZZ Plain Radiography of Left Lower Extremity Arteries using Other Contrast (ICD-10-PCS; 2020-04-07)
PROC: 4A023N7 Measurement of Cardiac Sampling and Pressure, Left Heart, Percutaneous Approach (ICD-10-PCS; 2020-04-07)
PROC: B211YZZ Fluoroscopy of Multiple Coronary Arteries using Other Contrast (ICD-10-PCS; 2020-04-07)
PROC: 0JBQ0ZZ Excision of Right Foot Subcutaneous Tissue and Fascia, Open Approach (ICD-10-PCS; 2020-04-08)
PROC: 0QBQ0ZX Excision of Right Toe Phalanx, Open Approach, Diagnostic (ICD-10-PCS; 2020-04-08)
PROC: 4A023N7 Measurement of Cardiac Sampling and Pressure, Left Heart, Percutaneous Approach (ICD-10-PCS; 2020-04-09)
PROC: B211YZZ Fluoroscopy of Multiple Coronary Arteries using Other Contrast (ICD-10-PCS; 2020-04-09)
PROC: 05HY33Z Insertion of Infusion Device into Upper Vein, Percutaneous Approach (ICD-10-PCS; 2020-04-10)
PROC: 05HY33Z Insertion of Infusion Device into Upper Vein, Percutaneous Approach (ICD-10-PCS; 2020-04-11)
PROC: 30233N1 Transfusion of Nonautologous Red Blood Cells into Peripheral Vein, Percutaneous Approach (ICD-10-PCS; 2020-04-11)
PROC: 02HV33Z Insertion of Infusion Device into Superior Vena Cava, Percutaneous Approach (ICD-10-PCS; 2020-04-12)
PROC: B548ZZA Ultrasonography of Superior Vena Cava, Guidance (ICD-10-PCS; 2020-04-12)
PROC: 5A1D70Z Performance of Urinary Filtration, Intermittent, Less than 6 Hours Per Day (ICD-10-PCS; 2020-04-12)
DX: E11.69 Type 2 diabetes mellitus with other specified complication (principal); J18.9 Pneumonia, unspecified organism; J96.00 Acute respiratory failure, unspecified whether with hypoxia or hypercapnia; I50.31 Acute diastolic (congestive) heart failure; M86.8X7 Other osteomyelitis, ankle and foot; J98.11 Atelectasis; D68.69 Other thrombophilia; C85.90 Non-Hodgkin lymphoma, unspecified, unspecified site; L03.115 Cellulitis of right lower limb; E22.2 Syndrome of inappropriate secretion of antidiuretic hormone; L97.518 Non-pressure chronic ulcer of other part of right foot with other specified severity; I13.2 Hypertensive heart and chronic kidney disease with heart failure and with stage 5 chronic kidney disease, or end stage renal disease; E11.51 Type 2 diabetes mellitus with diabetic peripheral angiopathy without gangrene; N17.0 Acute kidney failure with tubular necrosis; N18.6 End stage renal disease; I25.10 Atherosclerotic heart disease of native coronary artery without angina pectoris; Z79.84 Long term (current) use of oral hypoglycemic drugs; E86.0 Dehydration; I77.89 Other specified disorders of arteries and arterioles; E03.9 Hypothyroidism, unspecified; E83.42 Hypomagnesemia; B35.1 Tinea unguium; D63.8 Anemia in other chronic diseases classified elsewhere; E11.42 Type 2 diabetes mellitus with diabetic polyneuropathy; E87.5 Hyperkalemia; E83.52 Hypercalcemia; M89.9 Disorder of bone, unspecified; Z79.4 Long term (current) use of insulin; Z86.73 Personal history of transient ischemic attack (TIA), and cerebral infarction without residual deficits; Z88.2 Allergy status to sulfonamides; E11.65 Type 2 diabetes mellitus with hyperglycemia; M20.11 Hallux valgus (acquired), right foot; M21.40 Flat foot [pes planus] (acquired), unspecified foot; E04.9 Nontoxic goiter, unspecified; Z22.322 Carrier or suspected carrier of Methicillin resistant Staphylococcus aureus; E11.621 Type 2 diabetes mellitus with foot ulcer; I25.9 Chronic ischemic heart disease, unspecified; E11.22 Type 2 diabetes mellitus with diabetic chronic kidney disease; I70.201 Unspecified atherosclerosis of native arteries of extremities, right leg; M06.9 Rheumatoid arthritis, unspecified; M19.90 Unspecified osteoarthritis, unspecified site; M20.41 Other hammer toe(s) (acquired), right foot; R32 Unspecified urinary incontinence; Z91.19 Patient's noncompliance with other medical treatment and regimen
CPT/HCPCS: 36415; 36600; 37226; 71045-TC; 73660-TC; 75630-TC; 76770-TC; 80048-TC; 80053-TC; 80061-TC; 80202-TC; 81000-TC; 82728-TC; 82962-TC; 83540-TC; 83735-TC; 84100-TC; 84155; 84165; 85025-TC; 85610-TC; 85652-TC; 85730-TC; 86140-TC; 86706; 86850-TC; 87070-TC; 87081-TC; 87086-TC; 87186-TC; 87340; 88305-TC; 88311-TC; 90935-TC; 93307-TC; 93452; 97112-TC; 97116-TC; 97530-TC; A4217; A6253; A6403; C1725; C1750; C1753; C1769; C1876; C1887; C1894; C9803; G0378; G0500; J0171; J1200; J1644; J1815; J1940; J2185; J2250; J2405; J2543; J2704; J2930; J3010; J3370; J3475; J3490; J7030; J7040; J7050; J7060; J7070; P9016-BL; Q0163; Q9967

== ENCOUNTER 2020-12-09 10:05 | Outpatient (CLI) | payer MEDICARE, MEDICAID ==
[~2020-12-09 10:05] MED LIST changes: -ACET-907 PO; +AMLO-213 PO; -CEPH-570 PO; +DAPT500V2 IV; -MUPI22OI7 MC
== END 2020-12-09 23:59 | disposition home health service (06) ==
LOC: WOU 10:05
PROVIDERS: ATTEND Podiatrist Foot & Ankle Surgery
DX: E11.621 Type 2 diabetes mellitus with foot ulcer (principal); L97.518 Non-pressure chronic ulcer of other part of right foot with other specified severity; I87.2 Venous insufficiency (chronic) (peripheral); L84 Corns and callosities; E11.65 Type 2 diabetes mellitus with hyperglycemia; E11.42 Type 2 diabetes mellitus with diabetic polyneuropathy; Z79.4 Long term (current) use of insulin; B35.1 Tinea unguium; I10 Essential (primary) hypertension; R60.1 Generalized edema; M20.41 Other hammer toe(s) (acquired), right foot
CPT/HCPCS: 11042

== ENCOUNTER 2020-12-19 10:15 | Outpatient (CLI) | payer MEDICARE, MEDICAID ==
[2020-12-19] MEDS ORDERED: CADEXOMER IODINE UD 5 GM TUBE ONE (11:27)
[2020-12-19] MEDS ORDERED: CLOTRIMAZOLE 1% 15 GM TUBE TP ONE (11:28)
[2020-12-23] MEDS ORDERED: HYDR-4077 PO (16:59)
[2020-12-23] MEDS ORDERED: ASPI-1420 PO (16:59)
[2020-12-23] MEDS ORDERED: NITR1OIN2 TP (16:59)
[2020-12-23] MEDS ORDERED: CARV12.52 PO (16:59)
[2020-12-23] MEDS ORDERED: ATOR10TA PO (16:59)
== END 2020-12-19 23:59 | disposition home health service (06) ==
LOC: WOU 10:15
PROVIDERS: ATTEND Podiatrist Foot & Ankle Surgery
DX: E11.621 Type 2 diabetes mellitus with foot ulcer (principal); L97.522 Non-pressure chronic ulcer of other part of left foot with fat layer exposed; L97.512 Non-pressure chronic ulcer of other part of right foot with fat layer exposed; E11.42 Type 2 diabetes mellitus with diabetic polyneuropathy; E11.65 Type 2 diabetes mellitus with hyperglycemia; I87.2 Venous insufficiency (chronic) (peripheral); B35.1 Tinea unguium; L84 Corns and callosities; Z79.4 Long term (current) use of insulin
CPT/HCPCS: 11042

== ENCOUNTER 2020-12-19 19:25 | Inpatient (IN) | payer MEDICARE, MEDICAID ==
[~2020-12-19] VITALS: Ht 168.9 cm; Wt 65.8 kg
[2020-12-19] MEDS ORDERED: ASPIRIN 81 MG TAB.CHEW ONE (19:44)
--- NOTE | 2020-12-19 19:49 | NUR ---
CALLED LAB REGARDING COVID SWAB
[2020-12-19] MEDS ORDERED: ASPIRIN 81 MG TAB.CHEW PO ONE (20:00)
--- NOTE | 2020-12-19 20:07 | NUR ---
XRAY AT BEDSIDE
--- NOTE | 2020-12-19 20:10 | NUR ---
SWABBED, SENT TO LAB.
[2020-12-19 20:52] LABS: BASOPHILS % (AUTO) 0.4 % (0.0-2.0); EOSINOPHILS % (AUTO) 2.6 % (0.0-6.0); HEMATOCRIT 27 % (33-45); HEMOGLOBIN 9.4 g/dL (11.5-14.8); LYMPHOCYTES # (AUTO) 0.8 K/uL (0.8-4.8); LYMPHOCYTES % (AUTO) 9.4 % (20.0-44.0); MEAN CORPUSCULAR HGB CONC 34 g/dl (31.0-36.0); MEAN CORPUSCULAR VOLUME 89 fL (82-100); MONOCYTES # (AUTO) 0.7 K/uL (0.1-1.30); MONOCYTES % (AUTO) 8.3 % (2.0-12.0); NEUTROPHILS # (AUTO) 6.6 K/uL (1.8-8.9); NEUTROPHILS % (AUTO) 79.3 % (43.0-81.0); PLATELET COUNT (AUTO) 274 K/uL (150-450); RED BLOOD CELL COUNT(AUTO) 3.08 MIL/uL (4.0-5.2); WHITE BLOOD COUNT (AUTO) 8.3 K/uL (4.3-11.0)
[2020-12-19 21:22] LABS: ALANINE AMINOTRANSFERASE 22 U/L (12-78); ALBUMIN 3.5 g/dL (3.4-5.0); ALKALINE PHOSPHATASE 69 U/L (46-116); ASPARTATE AMINOTRANSFERASE 15 U/L (15-37); BILIRUBIN,DIRECT 0.1 mg/dL (0.0-0.2); BILIRUBIN,TOTAL 0.3 mg/dL (0.2-1.0); CALCIUM, SERUM 10.4 mg/dL (8.5-10.1); CARBON DIOXIDE 26 mmol/L (21-32); CHLORIDE 106 mmol/L (98-107); CREATININE 2.2 mg/dL (0.6-1.3); GLUCOSE 132 mg/dL (74-106); POTASSIUM 5.1 mmol/L (3.5-5.1); SODIUM SERUM 138 mmol/L (136-145); TOTAL PROTEIN, SERUM 6.7 g/dL (6.4-8.2); UREA NITROGEN, BLOOD 52 mg/dL (7-18)
--- NOTE | 2020-12-19 21:24 | NUR ---
CALLED NURSING SUP FOR BED
--- NOTE | 2020-12-19 21:58 | NUR ---
REPORT GIVEN TO RN, PT TRANSFERED PER ACLS PROTOCOL
[2020-12-19] MEDS ORDERED: HYDROCODONE/APAP 5/325MG TABLET PO PRN (22:00)
[2020-12-19] MEDS ORDERED: Z GUARD REMEDY 2 OZ OINT TP PRN (22:00)
[2020-12-19] MEDS ORDERED: MAGNESIUM HYDROXIDE 30 ML UDC PO PRN (22:00)
[2020-12-19] MEDS ORDERED: ZOLPIDEM TARTRATE 5 MG TABLET PO PRN (22:00)
[2020-12-19] MEDS ORDERED: ONDANSETRON HCL/PF 4 MG/2 ML VIAL IVP PRN (22:00)
[2020-12-19] MEDS ORDERED: MAG HYDROX/AL HYDROX/SIMETH 30 ML UDC PO PRN (22:00)
[2020-12-19 22:20] VITALS: BP 149/60
--- NOTE | 2020-12-19 22:21 | NUR ---
WRAPPER SIZER NOTES PT ARRIVED TO UNIT ACCOMPANIED BY RN AND EMT, PT A/0 X4 NO PAIN DISCOMFORT NO RUBEN OR REPORTED NO RESPIRATORY DISTRESS REPORTED AT THIS TIME. PT ON ROOM AIR TOLERATING WELL. PT HS IV ACCESS ON THE LEFT AC 18 G NO REDNESS OR SWELLING NOTED AT SITE. PT REPORTING NO CHEST PAIN AT THIS TIME. PT REFUSING FULL SKIN ASSESSMENT. PT HAS WOUNDS ON BILATERAL FEET PT STATED SHE HAD JUST COME BACK FROM GETTING TREATMENT FROM HER WOUND DOCTOR AND DID NOT WANT US TO REMOVE THE DRESSINGS.PT HAS BILATERAL LEG REDNESS NO EDEMA. PT HAS MEDIAL UPPER BACK SCARING WITH SOME SCABS. PICTURES TAKEN OF ALL WOUNDS. PT ORIENTED TO ROOM AND UNIT. CALL LIGHT PLACED WITHIN REACH. SAFETY MEASURES FOLLOWED AT ALL TIMES. BILATERAL SIDE RIALS UP BED LOCKED IN LOW POSITION HOB ELEVATED. WILL CONTINUE TO MONITOR.
[2020-12-20] VITALS: BP_SYST 149; BP_SYST 159; BP_DIAS 60; BP_DIAS 65
[2020-12-20] MEDS: IV 1/2NS 1000 ML 1,000 ML IV PRN (00:25)
[2020-12-20] MEDS ORDERED: DEXTROSE 50%-WATER 50 ML DISP.SYRIN IV PRN ×2 (01:00)
[2020-12-20 04:00] VITALS: BP 164/55
[2020-12-20 05:59] LABS: BASOPHILS % (AUTO) 0.5 % (0.0-2.0); EOSINOPHILS % (AUTO) 3.3 % (0.0-6.0); HEMATOCRIT 27 % (33-45); HEMOGLOBIN 9.2 g/dL (11.5-14.8); LYMPHOCYTES # (AUTO) 0.7 K/uL (0.8-4.8); LYMPHOCYTES % (AUTO) 11.3 % (20.0-44.0); MEAN CORPUSCULAR HGB CONC 34 g/dl (31.0-36.0); MEAN CORPUSCULAR VOLUME 90 fL (82-100); MONOCYTES # (AUTO) 0.4 K/uL (0.1-1.30); MONOCYTES % (AUTO) 7.2 % (2.0-12.0); NEUTROPHILS # (AUTO) 4.5 K/uL (1.8-8.9); NEUTROPHILS % (AUTO) 77.7 % (43.0-81.0); PLATELET COUNT (AUTO) 264 K/uL (150-450); RED BLOOD CELL COUNT(AUTO) 2.98 MIL/uL (4.0-5.2); WHITE BLOOD COUNT (AUTO) 5.9 K/uL (4.3-11.0)
[2020-12-20 06:19] LABS: CALCIUM, SERUM 10.4 mg/dL (8.5-10.1); CARBON DIOXIDE 24 mmol/L (21-32); CHLORIDE 107 mmol/L (98-107); CREATININE 2.1 mg/dL (0.6-1.3); GLUCOSE 240 mg/dL (74-106); MAGNESIUM 1.5 mg/dL (1.8-2.4); PHOSPHORUS 3.9 mg/dL (2.5-4.9); POTASSIUM 5.1 mmol/L (3.5-5.1); SODIUM SERUM 138 mmol/L (136-145); UREA NITROGEN, BLOOD 45 mg/dL (7-18)
[2020-12-20 06:28] LABS: CHOLESTEROL 177 mg/dL (<200); HDL CHOLESTEROL 47 mg/dL (40-60); LDL 115 mg/dL (0-99); THYROID STIMULATING HORMONE 1.293 uIU/mL (0.358-3.74); TRIGLYCERIDES 119 mg/dL (30-150)
[2020-12-20] MEDS ORDERED: hydrALAZINE HCL IV 20 MG VIAL IV PRN (06:30)
[2020-12-20] MEDS: INSULIN REGULAR, HUMAN 100 UNIT/ML 3 ML VIAL SQ PRN ×2 (06:36→17:15)
[2020-12-20] MEDS: BLOOD SUGAR DIAGNOSTIC 1 EACH STRIP IN SCH ×4 (06:36→21:59)
[2020-12-20] MEDS ORDERED: GABAPENTIN 100 MG CAPSULE PO PRN (07:00)
[2020-12-20] MEDS ORDERED: ACETAMINOPHEN W/ CODEINE#3 1 EA TABLET PO PRN (07:00)
[2020-12-20] MEDS ORDERED: hydrALAZINE HCL 25 MG TABLET PO SCH (07:00)
[2020-12-20] MEDS ORDERED: hydrALAZINE HCL 25 MG TABLET PO PRN (07:00)
--- NOTE | 2020-12-20 07:01 | NUR ---
RVDA MASTER CERTIFIED RV TECHNICIAN NOTES PT A/0 X4 NO PAIN DISCOMFORT NO RUBEN OR REPORTED NO RESPIRATORY DISTRESS REPORTED AT THIS TIME. PT ON ROOM AIR TOLERATING WELL. PT HS IV ACCESS ON THE LEFT AC 18 G NO REDNESS OR SWELLING NOTED AT SITE. PT REPORTING NO CHEST PAIN AT THIS TIME. PT REFUSING FULL SKIN ASSESSMENT. PT HAS WOUNDS ON BILATERAL FEET PT STATED SHE HAD JUST COME BACK FROM GETTING TREATMENT FROM HER WOUND DOCTOR AND DID NOT WANT US TO REMOVE THE DRESSINGS.PT HAS BILATERAL LEG REDNESS NO EDEMA. PT HAS MEDIAL UPPER BACK SCARING WITH SOME SCABS. PICTURES TAKEN OF ALL WOUNDS. PT ORIENTED TO ROOM AND UNIT. CALL LIGHT PLACED WITHIN REACH. SAFETY MEASURES FOLLOWED AT ALL TIMES. BILATERAL SIDE RIALS UP BED LOCKED IN LOW POSITION HOB ELEVATED. PT BLOOD PRESSURE WAS HIGH 164/55 PER md ramirez new order for hydralazine p.o q6 prn for sbp> 160 order noted and carried out.WILL ENDORSE CARE.
[2020-12-20] MEDS ORDERED: BLOOD SUGAR DIAGNOSTIC 1 EACH STRIP VI SCH (07:30)
[2020-12-20 08:00] VITALS: BP 127/54
--- NOTE | 2020-12-20 08:20 | NUR ---
TELE/RN OPENING NOTE RECEIVED PATIENT ASLEEP IN BED. EASILY AROUSABLE WITH VERBAL STIMULI. ON ROOM AIR. NO DISTRESS NOTED AT THIS TIME. NO CHEST PAIN REPORTED. ON TELE-MONITOR. IV ACCESS ON LEFT AC #18G IS INTACT WITH A RUNNING 1/2 NS @75ML/HR. SAFETY PRECAUTIONS IN PLACE. BED LOCKED ON LOWEST POSITION, SIDE RAILS UPX2, TABLE AND CALL LIGHT WITHIN REACH. WILL CONTINUE TO MONITOR PATIENT.
[2020-12-20] MEDS ORDERED: Medication Not On Formulary EA (Cyclosporine (Restasis) 1 DROP) EACHEYE SCH (09:00)
[2020-12-20] MEDS ORDERED: Magnesium 1GM/D5W 100ML PREMIX 100 ML IV SCH (09:30)
[2020-12-20] MEDS: HYDROCHLOROTHIAZIDE 25 MG TABLET PO SCH (09:43)
[2020-12-20] MEDS: MULTIVITAMINS,THERAGRAN 1 UDTAB TABLET PO SCH (09:43)
[2020-12-20] MEDS: ASPIRIN EC 81 MG TABLET.DR PO SCH (09:43)
[2020-12-20] MEDS: OXYBUTYNIN CHLORIDE ER 5 MG TAB PO SCH (09:43)
[2020-12-20] MEDS: AMLODIPINE BESYLATE 10 MG TABLET PO SCH (09:44)
[2020-12-20] MEDS: CHOLECALCIFEROL (VITAMIN D 3) 400 UNIT TABLET PO SCH (09:44)
[2020-12-20] MEDS: ATENOLOL 25 MG TABLET PO SCH (09:44)
[2020-12-20 09:51] LABS: IRON, SERUM 40 ug/dl (50-175); TOTAL IRON BINDING CAPACITY 195 ug/dl (250-450)
[2020-12-20] MEDS: POLYVINYL ALCOHOL 15 ML BOTTLE EACHEYE SCH ×2 (09:51→17:16)
[2020-12-20] MEDS: PANTOPRAZOLE 40 MG TABLET.DR PO SCH (09:51)
[2020-12-20] MEDS: ATORVASTATIN 10 MG TABLET PO SCH (10:16)
[2020-12-20] MEDS: hydrALAZINE HCL 50 MG TABLET PO SCH ×3 (10:16→17:13)
[2020-12-20 10:25] LABS: FERRITIN 193 ng/mL (8-388)
[2020-12-20] MEDS: HEPARIN SODIUM, PORCINE 5000 UNITS/1 ML VIAL SQ SCH ×2 (12:10→21:15)
[2020-12-20] MEDS: NITROGLYCERIN 30 GM TUBE TP SCH ×2 (12:11→21:03)
--- NOTE | 2020-12-20 13:00 | NUR ---
TELE/RN NOTES PATIENT PULLED OUT HER IV ON LEFT AC#18G. RN STARTED NEW IV ACCESS LINE ON RIGHT FOREARM #22G.
[2020-12-20] MEDS: ACETAMINOPHEN 325 MG TABLET PO PRN (13:31)
[2020-12-20 16:00] VITALS: BP 125/46
--- NOTE | 2020-12-20 18:10 | NUR ---
TELE/RN NOTES RN ASKED PATIENT REGARDING RESTASIS EYEDROPS. PER PATIENT SHE USED HER LAST DROP OF RESTASIS EARLIER TODAY AND SHE HAD NO MORE. PER PATIENT, SHE DOES NOT HAVE ANY FAMILY MEMBER THAT CAN BRING RESTASIS HERE AT THE HOSPITAL. NOTIFIED PATIENT THAT PER PHARMACY, THEY DO NOT CARRY RESTASIS EYEDROPS. PER PATIENT, IT IS OKAY FOR HER IF SHE CANNOT HAVE RESTASIS WHILE SHE IS HERE AT THE HOSPITAL. PER PATIENT, SHE HAS ARTIFICIAL TEARS PRESCRIBED AND IT SHOULD BE FINE FOR HER. NOTIFIED PHARMACY.
--- NOTE | 2020-12-20 19:27 | NUR ---
TELE/RN CLOSING NOTE PATIENT IN BED. ALERT AND ORIENTED X4, ABLE TO MAKE NEEDS KNOWN. ON ROOM AIR. NO DISTRESS NOTED AT THIS TIME. NO CHEST PAIN REPORTED. ON TELE-MONITOR WITH SINUS ALLAN 58 READING. IV ACCESS ON RIGHT FOREARM #22G IS PATENT AND INTACT. SAFETY PRECAUTIONS IN PLACE. BED LOCKED ON LOWEST POSITION, SIDE RAILS UPX2, TABLE AND CALL LIGHT WITHIN REACH. WILL ENDORSE TO THE NEXT SHIFT FOR CONTINUITY OF CARE.
--- NOTE | 2020-12-20 19:30 | NUR ---
SAP PAYROLL CONSULTANT OPENING NOTES RECEIVED PATIENT IN BED,AWAKE, A&O X 4. IN N ACUTE DISTRESS NOTED. ON ROOM AIR TOLERATING WELL. NO SOB NOTED. WITH IV ACCESS ON PATIENT'S RIGHT FOREARM G#22 PATENT AND FLUSHES WELL. NO REDNESS NOTED. NOTED WITH REDNESS ON BILATERAL LOWER LEG/FOOT. SAFETY PRECAUTIONS OBSERVED: BED ON LOWEST LOCKED POSITION, SIDE RAILS UP X 2, KEPT CALL LIGHT WITHIN EASY REACH. INSTRUCTED TO CALL FOR ASSISTANCE WHEN NEEDED. PATIENT VERBALIZED UNDERSTANDING. WILL CONTINUE TO MONITOR PATIENT'S CURRENT STATUS.
[2020-12-20 20:00] VITALS: BP 129/64
[2020-12-20] MEDS: INSULIN GLARGINE, 100 UNIT/ML CARTRIDGE SQ SCH ×2 (21:30→22:21)
[2020-12-20] MEDS: *INSULIN REGULAR(HUMULIN R)HUM 100 UNIT/ML VIAL SQ PRN (21:31)
[2020-12-21] VITALS: BP 143/59
[2020-12-21 04:00] VITALS: BP 146/50
[2020-12-21] MEDS: ACETAMINOPHEN 325 MG TABLET PO PRN ×2 (04:35→11:50)
--- NOTE | 2020-12-21 04:35 | NUR ---
RN NOTES PATIENT HAS C/O OF MILD PAIN ON RIGHT LOWER LEG WITH PAIN SCALE OF 3/10. DUE TYLENOL GIVEN ORDERED. WILL CONTINUE TO MONITOR PATIENT'S PAIN STATUS.
[2020-12-21 06:29] LABS: BASOPHILS % (AUTO) 0.3 % (0.0-2.0); EOSINOPHILS % (AUTO) 3.7 % (0.0-6.0); HEMATOCRIT 27 % (33-45); HEMOGLOBIN 9.3 g/dL (11.5-14.8); LYMPHOCYTES # (AUTO) 0.5 K/uL (0.8-4.8); LYMPHOCYTES % (AUTO) 9.7 % (20.0-44.0); MEAN CORPUSCULAR HGB CONC 35 g/dl (31.0-36.0); MEAN CORPUSCULAR VOLUME 91 fL (82-100); MONOCYTES # (AUTO) 0.4 K/uL (0.1-1.30); NEUTROPHILS # (AUTO) 4.3 K/uL (1.8-8.9); NEUTROPHILS % (AUTO) 78.3 % (43.0-81.0); PLATELET COUNT (AUTO) 265 K/uL (150-450); RED BLOOD CELL COUNT(AUTO) 2.94 MIL/uL (4.0-5.2); WHITE BLOOD COUNT (AUTO) 5.4 K/uL (4.3-11.0)
--- NOTE | 2020-12-21 06:48 | NUR ---
HAND COLLATOR CLOSING NOTES PATIENT IN BED, AWAKE, A&O X 4. ON ROOM AIR TOLERATINNG WELL. NO SOB NOTED. VS WNL. WITH IV ACCESS ON PATIENT'S RIGHT FA G#22, PATENT AND FLUSHES WELL. NO REDNESS NOTED. ON TELE MONITOR SHOWING SINUS ALLAN HEART RATE AT 58. NO COMPLAINTS OF PAIN AT THIS TIME. SAFETY PRECAUTIONS OBSERVED AND MAINTAINED DURING THE SHIFT: BED ON LOWEST LOCKED POSITION, KEPT SIDE RAILS UPX2 AT ALL TIMES, KEPT CALL LIGHT WITHIN EASY REACH. WILL ENDORSE TO AM SHIFT NURSE FOR REAL.
--- NOTE | 2020-12-21 07:11 | NUR ---
COMPTROLLER OPENING NOTES RECEIVED PATIENT IN BED,AWAKE, A&O X 4. PATIENT IS BREATHING EVENLY AND NONLABORED IN NO ACUTE DISTRESS NOTED. ON ROOM AIR TOLERATING WELL. NO SOB NOTED. PATIENT ON TELE MONITOR SHOWING SINUS ALLAN @ 58 BPM. PATIENT NOTED WITH IV ACCESS ON PATIENT'S RIGHT FOREARM G#22 PATENT AND FLUSHES WELL. NO REDNESS NOTED. NOTED WITH REDNESS ON BILATERAL LOWER LEG/FOOT. SAFETY PRECAUTIONS IN PLACE: BED ON LOWEST LOCKED POSITION, SIDE RAILS UP X 2, KEPT CALL LIGHT WITHIN EASY REACH. WILL CONTINUE TO MONITOR.
[2020-12-21] MEDS: ATORVASTATIN 10 MG TABLET PO SCH (08:08)
[2020-12-21] MEDS: MULTIVITAMINS,THERAGRAN 1 UDTAB TABLET PO SCH (08:08)
[2020-12-21] MEDS: CHOLECALCIFEROL (VITAMIN D 3) 400 UNIT TABLET PO SCH (08:08)
[2020-12-21] MEDS: ATENOLOL 25 MG TABLET PO SCH (08:08)
[2020-12-21] MEDS: ASPIRIN EC 81 MG TABLET.DR PO SCH (08:08)
[2020-12-21] MEDS: OXYBUTYNIN CHLORIDE ER 5 MG TAB PO SCH (08:08)
[2020-12-21] MEDS: PANTOPRAZOLE 40 MG TABLET.DR PO SCH (08:08)
[2020-12-21] MEDS: AMLODIPINE BESYLATE 10 MG TABLET PO SCH (08:09)
[2020-12-21] MEDS: HYDROCHLOROTHIAZIDE 25 MG TABLET PO SCH (08:09)
[2020-12-21] MEDS: hydrALAZINE HCL 50 MG TABLET PO SCH ×3 (08:09→16:19)
[2020-12-21] MEDS: POLYVINYL ALCOHOL 15 ML BOTTLE EACHEYE SCH ×2 (08:10→16:14)
[2020-12-21] MEDS: HEPARIN SODIUM, PORCINE 5000 UNITS/1 ML VIAL SQ SCH ×2 (08:11→22:00)
[2020-12-21] MEDS: NITROGLYCERIN 30 GM TUBE TP SCH ×2 (08:12→22:01)
[2020-12-21 08:24] LABS: CALCIUM, SERUM 10.6 mg/dL (8.5-10.1); CARBON DIOXIDE 24 mmol/L (21-32); CHLORIDE 106 mmol/L (98-107); CREATININE 1.7 mg/dL (0.6-1.3); GLUCOSE 238 mg/dL (74-106); MAGNESIUM 1.8 mg/dL (1.8-2.4); POTASSIUM 5.1 mmol/L (3.5-5.1); SODIUM SERUM 138 mmol/L (136-145); UREA NITROGEN, BLOOD 44 mg/dL (7-18)
[2020-12-21] MEDS: INSULIN REGULAR, HUMAN 100 UNIT/ML 3 ML VIAL SQ PRN (16:15)
[2020-12-21] MEDS: BLOOD SUGAR DIAGNOSTIC 1 EACH STRIP IN SCH (16:30)
--- NOTE | 2020-12-21 18:39 | NUR ---
MS RN CLOSING NOTES PATIENT IN BED,AWAKE, A&O X 4. PATIENT IS BREATHING EVENLY AND NONLABORED IN NO ACUTE DISTRESS NOTED. ON ROOM AIR TOLERATING WELL. NO SOB NOTED. PATIENT NOTED WITH IV ACCESS ON PATIENT'S RIGHT FOREARM G#22 PATENT AND FLUSHES WELL. NO REDNESS NOTED. NOTED WITH REDNESS ON BILATERAL LOWER LEG/FOOT. PATIENT REFUSES IV FLUIDS, SAYS SHE "MAYBE PUT IT BACK LATER" MD NOTIFIED. ALL MEDICATION GIVEN ORDERED. SAFETY PRECAUTIONS IN PLACE: BED ON LOWEST LOCKED POSITION, SIDE RAILS UP X 2, KEPT CALL LIGHT WITHIN EASY REACH. WILL ENDORSE TO ONCOMING SHIFT
[2020-12-21 20:00] VITALS: BP 127/63
--- NOTE | 2020-12-21 20:00 | NUR ---
MS RN OPENING NOTES PATIENT RESTING IN BED, ALERT/ORIENTED X 4, PT ABLE TO MAKE NEEDS KNOWN, NO COMPLAINTS OF PAIN AT THIS TIME. PATIENT STABLE ON ROOM AIR, NO S/S OF DISTRESS OR SHORTNESS OF BREATH NOTED. RIGHT FA #22G IV ACCESS INTACT AND FLUSHING WELL, PT REFUSING FLUIDS AT THIS TIME, PER STACIE MCGEE, MD IS AWARE. BILATERAL LOWER LEG REDNESS AND WOUNDS ON TOES NOTED. PATIENT IS AMBULATORY WITH CANE AND HAS BRP. SAFETY MEASURES IN PLACE, CALL LIGHT AND TABLE WITHIN REACH, BED LOCKED IN LOWEST POSITION, SIDE RAILS UP X 2. WILL CONTINUE TO MONITOR
[2020-12-21] MEDS: INSULIN GLARGINE, 100 UNIT/ML CARTRIDGE SQ SCH ×2 (22:00→22:03)
--- NOTE | 2020-12-21 22:40 | NUR ---
MS RN NOTES DUPLICATE ORDER OF LANTUS 16 UNITS. MEDICATION ALREADY GIVEN
[2020-12-22] MEDS: BLOOD SUGAR DIAGNOSTIC 1 EACH STRIP IN SCH ×5 (07:08→22:37)
--- NOTE | 2020-12-22 07:08 | NUR ---
MS RN OPENING NOTES RECEIVED PATIENT IN BED,AWAKE, A&O X 4. PATIENT IS BREATHING EVENLY AND NONLABORED IN NO ACUTE DISTRESS NOTED. ON ROOM AIR TOLERATING WELL. NO SOB NOTED. PATIENT NOTED WITH IV ACCESS ON PATIENT'S RIGHT FOREARM G#22 PATENT AND FLUSHES WELL. NO REDNESS NOTED. NOTED WITH REDNESS ON BILATERAL LOWER LEG/FOOT. SAFETY PRECAUTIONS IN PLACE: BED ON LOWEST LOCKED POSITION, SIDE RAILS UP X 2, KEPT CALL LIGHT WITHIN EASY REACH. WILL CONTINUE TO MONITOR.
[2020-12-22] MEDS: INSULIN REGULAR, HUMAN 100 UNIT/ML 3 ML VIAL SQ PRN ×3 (07:10→16:39)
--- NOTE | 2020-12-22 07:36 | NUR ---
MS RN CLOSING NOTES PATIENT AWAKE IN BED, ALERT/ORIENTED X 4, PT ABLE TO MAKE NEEDS KNOWN, NO COMPLAINTS OF PAIN AT THIS TIME. PATIENT STABLE ON ROOM AIR, NO S/S OF DISTRESS OR SHORTNESS OF BREATH NOTED. MEDICATIONS GIVEN ORDERED, PT NEEDS MET THROUGHOUT SHIFT. SAFETY MEASURES IN PLACE, CALL LIGHT AND TABLE WITHIN REACH, BED LOCKED IN LOWEST POSITION, SIDE RAILS UP X 2. WILL ENDORSE TO DAY SHIFT NURSE FOR CONTINUITY OF CARE
[2020-12-22 08:00] VITALS: BP 129/60
--- NOTE | 2020-12-22 08:08 | NUR ---
WOUND CARE CONSULT: PT PRESENTS WITH DRESSINGS TO FEET WHICH ARE DRY AND INTACT, PRESENT ON ADMISSION. PT REFUSED TO HAVE DRESSINGS REMOVED. DR LOPEZ NOTIFIED OF PT ADMISSION. CURRENT LUCHO SCORE IS 20.
[2020-12-22] MEDS: ASPIRIN EC 81 MG TABLET.DR PO SCH (08:17)
[2020-12-22] MEDS: PANTOPRAZOLE 40 MG TABLET.DR PO SCH (08:17)
[2020-12-22] MEDS: CHOLECALCIFEROL (VITAMIN D 3) 400 UNIT TABLET PO SCH (08:17)
[2020-12-22] MEDS: POLYVINYL ALCOHOL 15 ML BOTTLE EACHEYE SCH ×2 (08:17→16:20)
[2020-12-22] MEDS: OXYBUTYNIN CHLORIDE ER 5 MG TAB PO SCH (08:18)
[2020-12-22] MEDS: MULTIVITAMINS,THERAGRAN 1 UDTAB TABLET PO SCH (08:19)
[2020-12-22] MEDS: ATORVASTATIN 10 MG TABLET PO SCH (08:19)
[2020-12-22] MEDS: AMLODIPINE BESYLATE 10 MG TABLET PO SCH (08:20)
[2020-12-22] MEDS: ATENOLOL 25 MG TABLET PO SCH (08:20)
[2020-12-22] MEDS: HYDROCHLOROTHIAZIDE 25 MG TABLET PO SCH (08:20)
[2020-12-22] MEDS: hydrALAZINE HCL 50 MG TABLET PO SCH ×3 (08:20→16:19)
[2020-12-22] MEDS: HEPARIN SODIUM, PORCINE 5000 UNITS/1 ML VIAL SQ SCH ×2 (08:23→21:52)
[2020-12-22] MEDS: NITROGLYCERIN 30 GM TUBE TP SCH ×2 (09:01→21:54)
[2020-12-22] MEDS: CARVEDILOL 12.5 MG TABLET PO SCH ×2 (11:33→21:51)
[2020-12-22] MEDS ORDERED: BISACODYL (5 MG) 5 MG TABLET.DR PO PRN (12:00)
[2020-12-22 16:00] VITALS: BP 111/60
--- NOTE | 2020-12-22 18:28 | NUR ---
MS RN CLOSING NOTES PATIENT IN BED,AWAKE, A&O X 4. PATIENT IS BREATHING EVENLY AND NONLABORED IN NO ACUTE DISTRESS NOTED. ON ROOM AIR TOLERATING WELL. NO SOB NOTED. PATIENT NOTED WITH IV ACCESS ON PATIENT'S RIGHT FOREARM G#22 PATENT AND FLUSHES WELL. NO REDNESS NOTED. NOTED WITH REDNESS ON BILATERAL LOWER LEG/FOOT. BANDAIDS WERE PLACED ON TOES DURING SHIFT. PATIENT CONTINUES REFUSES IV FLUIDs, MD AWARE. ALL MEDICATION GIVEN ORDERED. SAFETY PRECAUTIONS IN PLACE: BED ON LOWEST LOCKED POSITION, SIDE RAILS UP X 2, KEPT CALL LIGHT WITHIN EASY REACH. WILL ENDORSE TO ONCOMING SHIFT
[2020-12-22 20:00] VITALS: BP 131/59
--- NOTE | 2020-12-22 20:00 | NUR ---
RECEIVED PT AWAKE IN BED, RESTING A/OX4, PT ON RA, NO SOB OR DISTRESS NOTED, NO C/O PAIN; RESPIRATIONS EVEN AND UNLABORED, IV ACCESS NOTED IN RFA G#22 SL INTACT, PATENT, AND FLUSHING WELL. FALL AND SAFETY MEASURES IN PLACE AND MAINTAINED AT ALL TIMES: BED ALARM ON, BED IN LOW AND LOCKED POSITION, HOB ELEVATED TO SEMI FOWLERS POSITION, CALL LIGHT AND TABLE WITHIN REACH, SIDE RAILS UP X2. WILL CONTINUE WITH PLAN OF CARE Addendum: 12/23/20 at 0001 by CARRILLO LANGLEY RN RN OPENING NOTE RECEIVED PT AWAKE IN BED, RESTING A/OX4, PT ON RA, NO SOB OR DISTRESS NOTED, NO C/O PAIN; RESPIRATIONS EVEN AND UNLABORED, IV ACCESS NOTED IN RFA G#22 SL INTACT, PATENT, AND FLUSHING WELL. FALL AND SAFETY MEASURES IN PLACE AND MAINTAINED AT ALL TIMES: BED ALARM ON, BED IN LOW AND LOCKED POSITION, HOB ELEVATED TO SEMI FOWLERS POSITION, CALL LIGHT AND TABLE WITHIN REACH, SIDE RAILS UP X2. WILL CONTINUE WITH PLAN OF CARE
--- NOTE | 2020-12-22 21:37 | NUR ---
BS 408. PT JUST FINISHED EATING. RECHECK
--- NOTE | 2020-12-22 21:47 | NUR ---
REPEAT BS 381
[2020-12-22] MEDS ORDERED: BLOOD SUGAR DIAGNOSTIC 1 EACH STRIP IN SCH (22:00)
[2020-12-22] MEDS: *INSULIN REGULAR(HUMULIN R)HUM 100 UNIT/ML VIAL SQ PRN (22:09)
[2020-12-22] MEDS: INSULIN GLARGINE, 100 UNIT/ML CARTRIDGE SQ SCH (22:14)
[2020-12-22] MEDS: IV 1/2NS 1000 ML 1,000 ML IV PRN (23:25)
[2020-12-22] MEDS ORDERED: MUPIROCIN OINT 2% 22 GM TUBE ONE (23:58)
[2020-12-23] MEDS: MUPIROCIN OINT 2% 22 GM TUBE TP SCH ×3 (00:11→20:17)
--- NOTE | 2020-12-23 05:59 | NUR ---
BS 225
[2020-12-23] MEDS: BLOOD SUGAR DIAGNOSTIC 1 EACH STRIP IN SCH ×4 (06:08→21:40)
[2020-12-23] MEDS: INSULIN REGULAR, HUMAN 100 UNIT/ML 3 ML VIAL SQ PRN ×2 (06:16→12:15)
--- NOTE | 2020-12-23 07:00 | NUR ---
RN CLOSING NOTE PT RESTING IN BED COMFORTABLY AT THIS TIME, EASY TO AROUSE. PT REMAINED STABLE THROUGHOUT SHIFT. ALL NEEDS, MEDICATIONS, AND CARE ADMINISTERED ANTICIPATED PER ORDER; PT ENCOURAGED TO REPOSITION Q2HR AND PRN. SAFETY PRECAUTIONS IN PLACE AND MAINTAINED AT ALL TIMES. BED IN LOWEST LOOCKED POSITION, HOB ELEVATED, SIDE RAILS UP X2. CALL LIGHT AND TABLE WITHIN REACH. WILL ENDORSE TO DAY SHIFT NURSE FOR REAL.
[2020-12-23 07:24] LABS: BASOPHILS % (AUTO) 0.5 % (0.0-2.0); EOSINOPHILS % (AUTO) 3.6 % (0.0-6.0); HEMATOCRIT 29 % (33-45); LYMPHOCYTES # (AUTO) 0.6 K/uL (0.8-4.8); MEAN CORPUSCULAR HGB CONC 35 g/dl (31.0-36.0); MEAN CORPUSCULAR VOLUME 92 fL (82-100); MONOCYTES # (AUTO) 0.5 K/uL (0.1-1.30); MONOCYTES % (AUTO) 8.5 % (2.0-12.0); NEUTROPHILS # (AUTO) 4.1 K/uL (1.8-8.9); NEUTROPHILS % (AUTO) 76.4 % (43.0-81.0); PLATELET COUNT (AUTO) 299 K/uL (150-450); RED BLOOD CELL COUNT(AUTO) 3.12 MIL/uL (4.0-5.2); WHITE BLOOD COUNT (AUTO) 5.4 K/uL (4.3-11.0)
[2020-12-23 07:30] LABS: CARBON DIOXIDE 24 mmol/L (21-32); CHLORIDE 104 mmol/L (98-107); GLUCOSE 223 mg/dL (74-106); MAGNESIUM 1.9 mg/dL (1.8-2.4); POTASSIUM 4.9 mmol/L (3.5-5.1); SODIUM SERUM 136 mmol/L (136-145); UREA NITROGEN, BLOOD 44 mg/dL (7-18)
[2020-12-23 08:00] VITALS: BP 136/50
[2020-12-23] MEDS: PANTOPRAZOLE 40 MG TABLET.DR PO SCH (08:31)
[2020-12-23] MEDS: CARVEDILOL 12.5 MG TABLET PO SCH ×2 (09:00→20:02)
[2020-12-23] MEDS: hydrALAZINE HCL 50 MG TABLET PO SCH ×3 (09:00→16:58)
[2020-12-23] MEDS: AMLODIPINE BESYLATE 10 MG TABLET PO SCH (09:00)
[2020-12-23] MEDS: OXYBUTYNIN CHLORIDE ER 5 MG TAB PO SCH (09:32)
[2020-12-23] MEDS: ASPIRIN EC 81 MG TABLET.DR PO SCH (09:32)
[2020-12-23] MEDS: HYDROCHLOROTHIAZIDE 25 MG TABLET PO SCH (09:32)
[2020-12-23] MEDS: MULTIVITAMINS,THERAGRAN 1 UDTAB TABLET PO SCH (09:32)
[2020-12-23] MEDS: CHOLECALCIFEROL (VITAMIN D 3) 400 UNIT TABLET PO SCH (09:33)
[2020-12-23] MEDS: ATORVASTATIN 10 MG TABLET PO SCH (09:35)
[2020-12-23] MEDS: NITROGLYCERIN 30 GM TUBE TP SCH ×2 (09:36→21:37)
[2020-12-23] MEDS: POLYVINYL ALCOHOL 15 ML BOTTLE EACHEYE SCH ×2 (09:38→16:59)
[2020-12-23] MEDS: HEPARIN SODIUM, PORCINE 5000 UNITS/1 ML VIAL SQ SCH ×2 (09:39→20:11)
[2020-12-23 16:00] VITALS: BP 114/60
[2020-12-23] MEDS ORDERED: ASPI-1420 PO (16:59)
[2020-12-23] MEDS ORDERED: CARV12.52 PO (16:59)
[2020-12-23] MEDS ORDERED: NITR1OIN2 TP (16:59)
[2020-12-23] MEDS ORDERED: ATOR10TA PO (16:59)
[2020-12-23] MEDS ORDERED: HYDR-4077 PO (16:59)
--- NOTE | 2020-12-23 18:41 | NUR ---
MS RN CLOSING NOTE PATIENT CURRENTLY LYING IN BED, AWAKE. A/O X4. STABLE ON ROOM AIR - NO SOB OR DISCOMFORT NOTED. IV ACCESS TO RIGHT FOREARM #22 S/L. IVF DISCONTINUED. DRESSING ON TOES CHANGED. PATIENT IS AMBULATORY WITH ASSIST. SAFETY MEASURES IMPLEMENTED. CALL LIGHT WITHIN REACH. WILL ENDORSE TO PRIMARY HEALTH ORGANISATION MANAGER NURSE FOR REAL.
--- NOTE | 2020-12-23 19:00 | NUR ---
RN OPENING NOTE RECEIVED PT AWAKE IN BED, RESTING A/OX4, PT ON RA, NO SOB OR DISTRESS NOTED, NO C/O PAIN; RESPIRATIONS EVEN AND UNLABORED, IV ACCESS NOTED IN RFA G#22 SL INTACT, PATENT, AND FLUSHING WELL. FALL AND SAFETY MEASURES IN PLACE AND MAINTAINED AT ALL TIMES: BED ALARM ON, BED IN LOW AND LOCKED POSITION, HOB ELEVATED TO SEMI FOWLERS POSITION, CALL LIGHT AND TABLE WITHIN REACH, SIDE RAILS UP X2. WILL CONTINUE WITH PLAN OF CARE
[2020-12-23 20:00] VITALS: BP 131/61
--- NOTE | 2020-12-23 20:35 | NUR ---
BS 212
[2020-12-23] MEDS: INSULIN GLARGINE, 100 UNIT/ML CARTRIDGE SQ SCH (21:45)
[2020-12-23] MEDS: *INSULIN REGULAR(HUMULIN R)HUM 100 UNIT/ML VIAL SQ PRN (21:59)
[2020-12-23] MEDS: ACETAMINOPHEN 325 MG TABLET PO PRN (22:29)
--- NOTE | 2020-12-23 22:29 | NUR ---
PT C/O ACHING PAIN OF 3/10 ON HER R SHOULDER, BP 131/61, HR 67, RR 19, T 97.9, O2 SAT 96% ON RA, PER PT REQUEST TYLENOL 650MG PO Q6HR PRN ADMINISTERED PER ORDER. WILL CONTINUE TO MONITOR
--- NOTE | 2020-12-24 05:46 | NUR ---
BS 257
[2020-12-24] MEDS: BLOOD SUGAR DIAGNOSTIC 1 EACH STRIP IN SCH (05:53)
[2020-12-24] MEDS: INSULIN REGULAR, HUMAN 100 UNIT/ML 3 ML VIAL SQ PRN (06:00)
--- NOTE | 2020-12-24 06:00 | NUR ---
RN CLOSING NOTE PT RESTING IN BED COMFORTABLY AT THIS TIME, EASY TO AROUSE. PT REMAINED STABLE THROUGHOUT SHIFT. ALL NEEDS, MEDICATIONS, AND CARE ADMINISTERED ANTICIPATED PER ORDER; WOUND CARE PROVIDED. PT ENCOURAGED TO REPOSITION Q2HR AND PRN. SAFETY PRECAUTIONS IN PLACE AND MAINTAINED AT ALL TIMES. BED IN LOWEST LOCKED POSITION, HOB ELEVATED, SIDE RAILS UP X2. CALL LIGHT AND TABLE WITHIN REACH. WILL ENDORSE TO DAY SHIFT NURSE FOR REAL.
--- NOTE | 2020-12-24 07:14 | NUR ---
RN OPENING NOTE PT RESTING IN BED COMFORTABLY AT THIS TIME, EASY TO AROUSE. PT ENCOURAGED TO REPOSITION Q2HR AND PRN. SAFETY PRECAUTIONS IN PLACE AND MAINTAINED AT ALL TIMES. BED IN LOWEST LOCKED POSITION, HOB ELEVATED, SIDE RAILS UP X2. CALL LIGHT AND TABLE WITHIN REACH AND ANSWERED PROMPTLY.
[2020-12-24 08:00] VITALS: BP 139/59
[2020-12-24] MEDS: OXYBUTYNIN CHLORIDE ER 5 MG TAB PO SCH (08:50)
[2020-12-24] MEDS: ASPIRIN EC 81 MG TABLET.DR PO SCH (08:50)
[2020-12-24] MEDS: ATORVASTATIN 10 MG TABLET PO SCH (08:51)
[2020-12-24] MEDS: hydrALAZINE HCL 50 MG TABLET PO SCH (08:51)
[2020-12-24] MEDS: CARVEDILOL 12.5 MG TABLET PO SCH (08:51)
[2020-12-24] MEDS: AMLODIPINE BESYLATE 10 MG TABLET PO SCH (08:51)
[2020-12-24] MEDS: HYDROCHLOROTHIAZIDE 25 MG TABLET PO SCH (08:52)
[2020-12-24] MEDS: MUPIROCIN OINT 2% 22 GM TUBE TP SCH (08:52)
[2020-12-24] MEDS: MULTIVITAMINS,THERAGRAN 1 UDTAB TABLET PO SCH (08:55)
[2020-12-24] MEDS: PANTOPRAZOLE 40 MG TABLET.DR PO SCH (08:55)
[2020-12-24] MEDS: HEPARIN SODIUM, PORCINE 5000 UNITS/1 ML VIAL SQ SCH (09:05)
[2020-12-24 09:06] VITALS: BP 139/59
[2020-12-24] MEDS: POLYVINYL ALCOHOL 15 ML BOTTLE EACHEYE SCH (09:06)
[2020-12-24] MEDS: NITROGLYCERIN 30 GM TUBE TP SCH (09:06)
--- NOTE | 2020-12-24 11:05 | NUR ---
Pit Hand consult: convention services manager consult requested to discuss plan of care. Patient is a 80-year-old, female. SW met with patient at her bedside in the med-surg unit. Patient was alert and oriented x4. Patient presented calm and was resting. Per chart, patient was brought in on 12/19/20 for chest pain. Per EMR, Dr. Quintero recommends that the patient go to a SNF. Patient is currently living at [address] [place] [address]; [phone]. Patient stated that she currently has an [facility] caregiver, Doris Andersen, , who visits the patient Tuesday to . Patient reported that she is ambulatory and independent with her ADLs. Patient stated that she is currently receiving food stamps and SSI as a source of income. SW asked the patient if she will consider SNF/ARU/HH and stated that Dr. Quintero recommended that the patient goes to a SNF. Patient declined SNF and ARU but agreed to home health. Patient stated, No, I want to go home and Im worried about my stuff. SW asked the patient if she has any source of social support and patient reported that she has some support from friends, but they are not located locally. Patient stated that she will only be able to stay at her current residence until February as her landlord is kicking out all the residents. SW assessed the patients history of mental illness and patient denied history of mental illness. Patient denied history of substance use. Patient denied current suicidal or homicidal ideation. SW offered the patient senior resources packet and New Lifestyles: Guide to Assisted and Care booklet. Patient accepted the resources and stated that she will follow up independently. SW discussed discharge plans with the patient and patient stated that she will return to her prior living arrangement at home. Charge nurse, Jelena notified MATT that the patient will be utilizing transportation provided by her insurance and CM Mary to follow up. PLAN: Patient will return to her prior living arrangement at the time of discharge. CM Mary to follow up with the patients transportation. No further SS intervention at this time, however, SW will remain available as needed. SENIOR RESOURCES: ABUSE PREVENTION: ELDER ABUSE HOTLINE (17/01) ADULT PROTECTIVE SERVICES HOTLINE LONG-TERM CARE [facility] AREA ON AGING (HOTLINE) ADULT DAY HEALTH CARE CARE CENTERS: Private pay or Medi-christopher funded adult day care [facility] Day Health Care [facility] , [facility] , [facility] Adult Care Center , [facility] Adult Day Health Care , [facility] Adult Day Health Care , [facility] Adult [facility] Center , [place] [facility] , [facility] , [place] ALZHEIMERS DISEASE/DEMENTIA: Alzheimers Association Helpline [facility] www.alz.org/[facility] Department of Aging www.lacity.org Family Caregiver [place] www.caregiver.org [place] Caregiver Resources Center/Family Support www.[facility].org CANCER RESOURCES: [place] Cancer Society www.cancer.org Cancer Support Community www.CancerSupportVvsb.org: CancerCare www.cancercare.org [facility] Cancer Support Center www.[facility].org COMMUNITY HEALTH ASSOCIATIONS: AARP www.aarp.org ALS Association (ask for Giovanna) www.als.org [place] Diabetes Association www.diabetes.org [place] Heart Association www.heart.org [place] Lung Association www.lungusa.org [place] Parkinson Disease Association www.apdaparkinson.org [place] , www.redcross.org Arthritis Foundation www.arthritis.org Crohns & Colitis Foundation of [place] www.ccfa.org/chapters/thien National Multiple Sclerosis Society www.nationalmssociety.org Myasthenia Gravis Foundation www.myasthenia-ca.org National Stroke Association www.stroke.org CONSERVATORSHIP & GUARDIANSHIP: AARP Bet Tzed Legal Services Center for Health Care Rights Eldercare Information and Referral Barn And Property Manager [facility]: [facility] Referral Service [facility] Legal Services Office of the Public Guardian [place] EYESIGHT DISORDER RESOURCES: [place] Macular Degeneration Foundation [facility] www.[facility].org GRIEF AND BEREAVEMENT RESOURCES: The [place] , [facility] THE [place] Connection , [facility] Bereavement Center , [place] HEARING DISORDER RESOURCES: [place] Telephone Access Program Deaf and Disabled Telecommunications Program www.ddtp.cpuc.ca.gov HearRx Hearing Centers ([place]) Better Hearing Systems , [place] GLAD ([facility] Agency on Deafness) V/ TTY; Observer Electrical Prospecting , [facility] Hearing [facility] -low income hearing aid assistance www.tom beanYeHivehearingfoundation.org [place] Hearing Care , Trice HELP AT HOME CAREGIVER SUPPORT: In Home Support Services (Must have Medi-Christopher to be eligible) *Ask for a list of agencies that provide services to assist with care in the home. Local Senior Centers also have listings of care providers. HOME SAFETY MODIFICATIONS AND EQUIPMENT: Senior centers have additional referrals. [place] Revolver and QVPN Investment Dept. Handyworker Program (low income) or Visit http://hcidla.[facility].org/kyp-aceaxr-ia for more information National Seating and Mobility and/or ; Forever Active www.foreverChalkfly.Spotlight.fm Stay Home Safe www.Stayhomesafe.Spotlight.fm LIFE ALERT RESPONSE SYSTEM: Desigualline Services 765-193-4648 www. Anulex Life Alert 026-445-8634 www.Leyou software Life Station 621-480-1467 www.World Energyation.Spotlight.fm Safe Return 160-371-5367 www.alz.or/safereturn Cell Phones for Seniors www.LibraryThing MEALS AND FOOD PROGRAMS: [place] Meals on Wheels [phone] [place] Meals on Wheels [phone] [facility] [phone] [place] to the Homebound [phone] [place] to the Homebound [phone] [facility] to the Homebound [phone] [facility] to the Homebound [phone] [facility] Jai Mckeon [phone] [facility] [phone] ONE Generation [phone] [facility] [phone] [facility] Specialty Hospital [facility] [phone] Meals on Wheels [phone] For all ages: $6.85/ meal w side. Delivered M-F from 10 am-1pm. Application and payment is done over the phone. Frozen meals available for weekends. Emergency Food [facility] [phone] Anabaptist Pit Hand [phone] [facility] [phone] Rebecca Franklinan Outreach- Brown bag lunches [phone] [facility] [phone] MEAL/GROCERY DELIVERY PROGRAMS: Ariel [facility] Gourmet Meals [phone]- [facility] [phone]- [facility] Magic Kitchen [phone] Moms Meals [phone] (ask Barba for Discount Select grocery stores may provide delivery. MEDICAL INSURANCE SUPPORT SERVICES: Center for Health Care Rights [phone] Health Insurance Counseling/Advocacy Programs (HICAP)-Must have Medicare. Offers counseling for Medi-Christopher eligibility [phone] Department of Public Pit Hand [phone] www.[facility]ca.gov Medicare 152-176-1250 www.socialsecurity.org Social Security 869-868-2082 SENIOR ACTIVITY PROGRAMS: *Contact a local senior center, adult school, recreation facility or community college for education, fitness, recreation, and social programs. Aquatic Therapy and Adapted Exercise programs through [facility] [phone] [facility] [phone] www.[facility]/encore H2U- Senior Friends [phone] [place] Senior Programs 144-641-9792 www.oasisnet.org Suddenly 65 www.zsvmynzy62.com SENIOR CENTERS: [facility] [phone] [facility] [phone] [facility] [phone] [facility] Brilliant [phone] [facility] [phone] [facility] [phone] [facility] [phone] [facility] [phone] One Generation, Reseda [facility] [phone] [facility] [phone] [facility] [phone] [facility] [phone] [facility] [phone] TRANSPORTATION: Local [facility] Centers may have applications for transportation programs and additional resources. ACCESS Services [phone] Transportation for seniors and disabled persons 7 days a week requiring 254 hr. advance reservation. Must apply and register for program tricia eligible. HMT Technology [phone] or [phone] Transportation for seniors and persons with ADA card/metro disabled card in the [facility]. M-F only. Must register for services. ONE GENERATION [phone] Serves 65 years + in conjunction with [facility] program. Must be registered with both programs. A to B Transport [phone] Provides wheelchair/gurney van service. Adult Medical Transport [phone] Accepts Medi-christopher with prior authorization. Care Van [phone] Provides wheelchair Transport. [facility] Wide Transportation [phone] Provides gurney service [facility] [phone] Gurney Transport. [facility] Transportation [phone] wheelchair & gurney transport [facility] Transportation [phone] wheelchair & gurney transport [place] Non-Emergency Transport [phone] wheelchair & gurney transport [facility] Living [place] [phone] Short Term Transportation primarily for adults with disabilities on social security income. Nominal fee may apply and a reservation is required. [facility] Cab [phone] or [phone] [facility] Center[facility]apNames [phone] [place] [address] Referral Services -[phone] For additional programs & services
== END 2020-12-24 14:00 | disposition home health service (06) | DRG 302 ==
LOC: ER 19:27 → TELE 21:53 → MED 12-21 12:48
PROVIDERS: ADMIT Student in an Organized Health Care Education/Training Program; ATTEND Nurse Practitioner Acute Care
DX: I25.10 Atherosclerotic heart disease of native coronary artery without angina pectoris (principal); N17.0 Acute kidney failure with tubular necrosis; I50.31 Acute diastolic (congestive) heart failure; L03.116 Cellulitis of left lower limb; M86.9 Osteomyelitis, unspecified; I13.0 Hypertensive heart and chronic kidney disease with heart failure and stage 1 through stage 4 chronic kidney disease, or unspecified chronic kidney disease; E11.22 Type 2 diabetes mellitus with diabetic chronic kidney disease; E83.42 Hypomagnesemia; E11.42 Type 2 diabetes mellitus with diabetic polyneuropathy; E83.52 Hypercalcemia; E03.9 Hypothyroidism, unspecified; Z20.822 Contact with and (suspected) exposure to COVID-19; E11.51 Type 2 diabetes mellitus with diabetic peripheral angiopathy without gangrene; E11.621 Type 2 diabetes mellitus with foot ulcer; E11.69 Type 2 diabetes mellitus with other specified complication; M21.619 Bunion of unspecified foot; E78.00 Pure hypercholesterolemia, unspecified; D64.9 Anemia, unspecified; E78.5 Hyperlipidemia, unspecified; Z98.890 Other specified postprocedural states; Z88.2 Allergy status to sulfonamides; Z79.4 Long term (current) use of insulin; L97.529 Non-pressure chronic ulcer of other part of left foot with unspecified severity; Z79.899 Other long term (current) drug therapy; Z95.1 Presence of aortocoronary bypass graft; Z80.9 Family history of malignant neoplasm, unspecified; Z82.49 Family history of ischemic heart disease and other diseases of the circulatory system; Z85.72 Personal history of non-Hodgkin lymphomas; N18.30 Chronic kidney disease, stage 3 unspecified; M06.9 Rheumatoid arthritis, unspecified
CPT/HCPCS: 11042; 36415; 71045-TC; 73630-TC; 80048-TC; 80061-TC; 80076-TC; 82728-TC; 82962-TC; 83540-TC; 83735-TC; 83880; 83970; 84100-TC; 84439-TC; 84443-TC; 84484-TC; 85025-TC; 87081-TC; 93307-TC; C9803; G0378; J1644; J1815; J3475; J3490